=== PATIENT | female | born 1945 | race Caucasian/White ===

== ENCOUNTER 2018-05-06 21:32 | Emergency (ER) | payer OTHER ==
[~2018-05-06] VITALS: Ht 162.6 cm; Wt 68.0 kg
[~2018-05-06 21:32] MED LIST: AMLO5 PO; Antivert25 MG PO; BUDESONIDE EC3 MG PO; BUSP10 PO; CALCAVITD PO; CITA20 PO; CYCL10 PO; DOCU100 PO; ENTOCORT PO; ERGO50000 PO; Flonase 0.05% N16 GM; GABA100 PO; HYDACE5325 PO; Hair, Skin & N1 EACH PO; Indapamide2.5 MG PO; K-Dur20 MEQ PO; LAVAP17G PO; LEVFLO500 PO; LIDO5TP TOP; LISI20 PO; MESA250ER PO; METO50ER PO; METPRE4DP PO; Micro-K10 MEQ PO; OMEP20ER PO; OXYACE5T PO; OXYC10TA19; Omeprazole20 M1 PO; POTCHL10ER PO; Percocet 5-3251 EACH PO; Robaxin500 MG PO; SERT50 PO; SPIR25 PO; TRAM50 PO; TRAZ150T57 PO; TRAZ50 PO; VITAMIN D-32000 UNIT PO; Valium5 MG PO; ZOLP10 PO; [UNRECOGNIZED DRUG - SUPPLY]; [UNRECOGNIZED DRUG - SUPPLY] PR
[2018-05-06] MEDS ORDERED: Cyclobenzaprine5 MG PO (23:35)
[2018-05-06] MEDS ORDERED: Norco 5-325 Ta1 EACH PO (23:35)
== END 2018-05-06 23:58 | disposition home or self-care (01) ==
LOC: ER 21:32
DX: M62.830 Muscle spasm of back (principal); G89.29 Other chronic pain; Z88.5 Allergy status to narcotic agent; Z88.8 Allergy status to other drugs, medicaments and biological substances; Z79.899 Other long term (current) drug therapy; G43.909 Migraine, unspecified, not intractable, without status migrainosus
CPT/HCPCS: 72100; 96374; 99283-25; J3010

== ENCOUNTER 2018-05-08 18:35 | Emergency (ER) | payer OTHER ==
[~2018-05-08] VITALS: Ht 162.6 cm; Wt 68.0 kg
[~2018-05-08 18:35] MED LIST changes: +Cyclobenzaprine5 MG PO; +Norco 5-325 Ta1 EACH PO
[2018-05-08] MEDS ORDERED: Roxicodone5 MG PO (20:18)
== END 2018-05-08 20:36 | disposition home or self-care (01) ==
LOC: ER 18:35
DX: M54.5 Low back pain (principal); G89.29 Other chronic pain; Z88.5 Allergy status to narcotic agent; Z88.8 Allergy status to other drugs, medicaments and biological substances; Z79.899 Other long term (current) drug therapy; Z87.891 Personal history of nicotine dependence

== ENCOUNTER 2018-05-12 20:54 | Inpatient (IN) | payer OTHER ==
[~2018-05-12] VITALS: Ht 165.1 cm; Wt 66.6 kg
[~2018-05-12 20:54] MED LIST changes: +Roxicodone5 MG PO
[2018-05-12] MEDS ORDERED: TRAZ100 PO (21:22)
[2018-05-12] MEDS ORDERED: IBUP800 PO (21:23)
[2018-05-12] MEDS ORDERED: CALCIUM PO (21:24)
[2018-05-12] MEDS ORDERED: B-121000 MC2 PO (21:24)
[2018-05-12] MEDS ORDERED: D3 PO (21:25)
[2018-05-12 22:31] LABS: Hematocrit 43.3 % (33.0-51.0); Hemoglobin 13.9 g/dL (11.5-16.0); Mean Corpuscular HGB 29.6 pg (26.0-34.0); Mean Corpuscular HGB Conc 32.1 g/dL (31.5-36.5); Mean Corpuscular Volume 92 fL (80-100); Mean Platelet Volume 10.2 fL (9.1-12.4); Platelet Count 298 K/mm3 (150-400); RDW Coefficient Variation 13.5 % (11.7-14.2); RDW Standard Deviation 45.4 fL (35.1-46.3); Red Blood Cell Count 4.69 M/mm3 (3.80-5.20); White Blood Cell Count 24.21 K/mm3 (4.00-11.30)
[2018-05-12 22:48] LABS: BAND PERCENT MAN 10 % (0-8); BASOPHILS PERCENT MAN 0 % (0-2); EOSINOPHILS PERCENT MAN 0 % (0-6); LYMPHOCYTES ABSOLUTE MAN 0.96 K/mm3 (0.84-5.20); LYMPHOCYTES PERCENT MAN 4 % (21-46); MONOCYTES ABSOLUTE MAN 0.96 K/mm3 (0.16-1.47); MONOCYTES PERCENT MAN 4 % (4-13); NEUTROPHILS ABSOLUTE MAN 22.27 K/mm3 (1.96-9.15); SEG NEUTROPHILS PERCENT MAN 82 % (41-73); TOTAL CELLS COUNTED 100
[2018-05-12 23:15] LABS: Albumin/Globulin Ratio 0.9 (0.8-1.8); Bilirubin, Total 1.6 mg/dL (0.1-1.0); Bun/Creatinine Ratio 34.2 (12.0-20.0); Calcium, Blood 8.6 mg/dL (8.5-10.1); Creatinine, Blood 1.2 mg/dL (0.40-1.00); Globulin, Blood 3.4 g/dL (2.2-4.0); Potassium, Blood 3.2 mmol/L (3.5-5.5); Total Protein, Blood 6.4 g/dL (6.4-8.2); Troponin I 0.085 ng/mL (0.000-0.040)
[2018-05-12 23:48] LABS: Source, Urine Catheter
[2018-05-12 23:51] LABS: Blood, Urine 5+ (Neg); Glucose Qualitative, Urine Neg (Neg); Ketones, Urine 1+ (Neg); Leukocyte Esterase, Urine 2+ (Neg); Nitrite, Urine Pos (Neg); Protein, Urine 2+ (Neg); Urobilinogen, Urine 2+ (Normal)
[2018-05-12 23:53] LABS: Appearance, Urine Hazy (Clear); Bilirubin, Urine 2+ (Neg); Color, Urine Amber (P-Yellow)
[2018-05-13] LABS: Bacteria Mod /hpf; Red Blood Cells, Urine 25-50 /hpf (0-2); Squamous Epithelial Cells Not Seen /hpf (Few); White Blood Cells, Urine 0-2 /hpf (0-5)
[2018-05-13 08:01] LABS: Hematocrit 42.4 % (33.0-51.0); Hemoglobin 13.5 g/dL (11.5-16.0); Mean Corpuscular HGB 29.1 pg (26.0-34.0); Mean Corpuscular HGB Conc 31.8 g/dL (31.5-36.5); Mean Corpuscular Volume 91 fL (80-100); Platelet Count 320 K/mm3 (150-400); RDW Coefficient Variation 13.6 % (11.7-14.2); Red Blood Cell Count 4.64 M/mm3 (3.80-5.20); White Blood Cell Count 22.62 K/mm3 (4.00-11.30)
[2018-05-13 08:25] LABS: Free Thyroxine 1.85 ng/dL (0.70-1.60); Troponin I 0.072 ng/mL (0.000-0.040)
[2018-05-13 08:29] LABS: Alanine Aminotransfer (ALT/SGP 91 U/L (12-78); Albumin, Blood 2.8 g/dL (3.4-5.0); Albumin/Globulin Ratio 0.8 (0.8-1.8); Alk Phos 85 U/L (50-136); Anion Gap 10 mmol/L (6-16); Aspartate Aminotrans (AST/SGOT 207 U/L (12-37); Bilirubin, Total 1.2 mg/dL (0.1-1.0); Blood Urea Nitrogen 39 mg/dL (8-24); Bun/Creatinine Ratio 40.5 (12.0-20.0); CO2, Blood 25 mmol/L (21-32); Chloride, Blood 111 mmol/L (98-108); Creatinine, Blood 0.96 mg/dL (0.40-1.00); Globulin, Blood 3.3 g/dL (2.2-4.0); Glomerular Filtration Rate >60 (60-); Glucose, Blood 95 mg/dL (70-99); Potassium, Blood 3.8 mmol/L (3.5-5.5); Sodium, Blood 146 mmol/L (136-145); Total Protein, Blood 6.1 g/dL (6.4-8.2)
[2018-05-13 08:43] LABS: Thyroid Stimulating Hormone 0.204 uIU/mL (0.360-4.800)
[2018-05-13 08:45] LABS: Creatine Kinase MB 40.7 ng/mL (0.0-3.6); Creatine Kinase MB Index 1.1 (0.0-4.0)
[2018-05-13 19:09] LABS: Creatine Kinase MB 18.7 ng/mL (0.0-3.6); Creatine Kinase MB Index 1.1 (0.0-4.0)
[2018-05-14 05:16] LABS: BASOPHILS ABSOLUTE AUTO 0.05 K/mm3 (0.00-0.23); BASOPHILS PERCENT AUTO 0 % (0-2); EOSINOPHILS ABSOLUTE AUTO 0.01 K/mm3 (0.00-0.68); EOSINOPHILS PERCENT AUTO 0 % (0-6); Hemoglobin 13.5 g/dL (11.5-16.0); IMMATURE GRAN ABSOLUTE AUTO 0.05 K/mm3 (0.00-0.10); IMMATURE GRAN PERCENT AUTO 0 % (0-1); LYMPHOCYTES ABSOLUTE AUTO 0.91 K/mm3 (0.84-5.20); LYMPHOCYTES PERCENT AUTO 7 % (21-46); MONOCYTES PERCENT AUTO 5 % (4-13); Mean Corpuscular HGB 29.5 pg (26.0-34.0); Mean Corpuscular HGB Conc 31.4 g/dL (31.5-36.5); Mean Platelet Volume 9.6 fL (9.1-12.4); NEUTROPHILS ABSOLUTE AUTO 11.64 K/mm3 (1.96-9.15); NEUTROPHILS PERCENT AUTO 87 % (41-73); Platelet Count 278 K/mm3 (150-400); RDW Coefficient Variation 13.6 % (11.7-14.2); RDW Standard Deviation 46.7 fL (35.1-46.3); Red Blood Cell Count 4.58 M/mm3 (3.80-5.20); White Blood Cell Count 13.36 K/mm3 (4.00-11.30)
[2018-05-14 05:19] LABS: Alanine Aminotransfer (ALT/SGP 83 U/L (12-78); Albumin, Blood 2.5 g/dL (3.4-5.0); Albumin/Globulin Ratio 0.7 (0.8-1.8); Alk Phos 83 U/L (50-136); Anion Gap 9 mmol/L (6-16); Aspartate Aminotrans (AST/SGOT 99 U/L (12-37); Bilirubin, Total 0.9 mg/dL (0.1-1.0); Blood Urea Nitrogen 34 mg/dL (8-24); Bun/Creatinine Ratio 41.9 (12.0-20.0); CO2, Blood 23 mmol/L (21-32); Calcium, Blood 8.6 mg/dL (8.5-10.1); Chloride, Blood 111 mmol/L (98-108); Creatinine, Blood 0.81 mg/dL (0.40-1.00); Globulin, Blood 3.7 g/dL (2.2-4.0); Glomerular Filtration Rate >60 (60-); Glucose, Blood 96 mg/dL (70-99); Potassium, Blood 3.1 mmol/L (3.5-5.5); Sodium, Blood 143 mmol/L (136-145); Total Protein, Blood 6.2 g/dL (6.4-8.2)
[2018-05-14 05:22] LABS: Mean Corpuscular Volume 94 fL (80-100)
[2018-05-15 05:30] LABS: BASOPHILS ABSOLUTE AUTO 0.04 K/mm3 (0.00-0.23); BASOPHILS PERCENT AUTO 0 % (0-2); EOSINOPHILS PERCENT AUTO 0 % (0-6); Hematocrit 39.3 % (33.0-51.0); Hemoglobin 12.4 g/dL (11.5-16.0); IMMATURE GRAN ABSOLUTE AUTO 0.04 K/mm3 (0.00-0.10); IMMATURE GRAN PERCENT AUTO 0 % (0-1); LYMPHOCYTES ABSOLUTE AUTO 1.23 K/mm3 (0.84-5.20); LYMPHOCYTES PERCENT AUTO 11 % (21-46); MONOCYTES PERCENT AUTO 7 % (4-13); Mean Corpuscular HGB 29.2 pg (26.0-34.0); Mean Corpuscular HGB Conc 31.6 g/dL (31.5-36.5); Mean Corpuscular Volume 93 fL (80-100); Mean Platelet Volume 9.6 fL (9.1-12.4); NEUTROPHILS ABSOLUTE AUTO 9.23 K/mm3 (1.96-9.15); NEUTROPHILS PERCENT AUTO 81 % (41-73); Platelet Count 301 K/mm3 (150-400); RDW Coefficient Variation 13.4 % (11.7-14.2); RDW Standard Deviation 45.3 fL (35.1-46.3); Red Blood Cell Count 4.24 M/mm3 (3.80-5.20); White Blood Cell Count 11.34 K/mm3 (4.00-11.30)
[2018-05-15 05:49] LABS: Anion Gap 6 mmol/L (6-16); Blood Urea Nitrogen 26 mg/dL (8-24); Bun/Creatinine Ratio 32.6 (12.0-20.0); CO2, Blood 29 mmol/L (21-32); Calcium, Blood 8.5 mg/dL (8.5-10.1); Chloride, Blood 109 mmol/L (98-108); Glomerular Filtration Rate >60 (60-); Glucose, Blood 97 mg/dL (70-99); Potassium, Blood 4.5 mmol/L (3.5-5.5); Sodium, Blood 144 mmol/L (136-145)
[2018-05-15] MEDS ORDERED: CALCIUM 600 +1 EAC2 PO (11:35)
[2018-05-17] MEDS ORDERED: Cyclobenzaprine5 MG PO (16:58)
[2018-05-17] MEDS ORDERED: ALEN70 PO (17:02)
[2018-05-17] MEDS ORDERED: CEPH500 PO (17:03)
== END 2018-05-15 18:34 | disposition home or self-care (01) | DRG 871 ==
LOC: ER 20:54 → MEDS 20:55 → ENPENDDIS 05-15 12:36 → MEDS 05-15 18:34
PROVIDERS: Emergency Medicine; Hospitalist; Internal Medicine
DX: A41.9 Sepsis, unspecified organism (principal); G92 Toxic encephalopathy; N17.9 Acute kidney failure, unspecified; N39.0 Urinary tract infection, site not specified; K50.90 Crohn's disease, unspecified, without complications; E86.0 Dehydration; Z91.81 History of falling; Z87.891 Personal history of nicotine dependence; M18.0 Bilateral primary osteoarthritis of first carpometacarpal joints; G43.909 Migraine, unspecified, not intractable, without status migrainosus; I10 Essential (primary) hypertension; F03.90 Unspecified dementia, unspecified severity, without behavioral disturbance, psychotic disturbance, mood disturbance, and anxiety; Z51.5 Encounter for palliative care; D72.829 Elevated white blood cell count, unspecified; E05.90 Thyrotoxicosis, unspecified without thyrotoxic crisis or storm
CPT/HCPCS: 36415; 51701; 70450; 71045; 72125; 73502; 73562-LT; 76700; 80048; 80053; 81001; 82140; 82550; 82553; 82607; 82746; 83605; 84439; 84443; 84484; 85025; 85027; 87040; 87086; 93005; 93010; 96372; 96374; 96375; 97116; 97162; 97166; 97530; 99285-25; G0378; G0515; G8978; G8979; G8987; G8988; J0696; J1650; J3480; J7030

== ENCOUNTER 2018-05-24 09:39 | Emergency (ER) | payer OTHER ==
[~2018-05-24] VITALS: Ht 160 cm; Wt 68.5 kg
[~2018-05-24 09:39] MED LIST changes: +ALEN70 PO; +B-121000 MC2 PO; +CALCIUM 600 +1 EAC2 PO; +CALCIUM PO; +CEPH500 PO; +D3 PO; +IBUP800 PO; +TRAZ100 PO
[2018-05-24 10:53] LABS: BASOPHILS ABSOLUTE AUTO 0.05 K/mm3 (0.00-0.23); BASOPHILS PERCENT AUTO 0 % (0-2); EOSINOPHILS ABSOLUTE AUTO 0.02 K/mm3 (0.00-0.68); EOSINOPHILS PERCENT AUTO 0 % (0-6); Hematocrit 38.7 % (33.0-51.0); Hemoglobin 12.4 g/dL (11.5-16.0); IMMATURE GRAN ABSOLUTE AUTO 0.09 K/mm3 (0.00-0.10); IMMATURE GRAN PERCENT AUTO 1 % (0-1); LYMPHOCYTES PERCENT AUTO 6 % (21-46); MONOCYTES PERCENT AUTO 4 % (4-13); Mean Corpuscular HGB 29.2 pg (26.0-34.0); Mean Corpuscular Volume 91 fL (80-100); Mean Platelet Volume 8.9 fL (9.1-12.4); NEUTROPHILS ABSOLUTE AUTO 14.51 K/mm3 (1.96-9.15); NEUTROPHILS PERCENT AUTO 89 % (41-73); Platelet Count 444 K/mm3 (150-400); RDW Coefficient Variation 12.8 % (11.7-14.2); RDW Standard Deviation 42.4 fL (35.1-46.3); Red Blood Cell Count 4.24 M/mm3 (3.80-5.20); White Blood Cell Count 16.27 K/mm3 (4.00-11.30)
[2018-05-24 11:30] LABS: Alanine Aminotransfer (ALT/SGP 25 U/L (12-78); Albumin, Blood 2.5 g/dL (3.4-5.0); Albumin/Globulin Ratio 0.7 (0.8-1.8); Alk Phos 129 U/L (50-136); Anion Gap 7 mmol/L (6-16); Aspartate Aminotrans (AST/SGOT 14 U/L (12-37); Bilirubin, Total 0.6 mg/dL (0.1-1.0); Blood Urea Nitrogen 8 mg/dL (8-24); Bun/Creatinine Ratio 10.6 (12.0-20.0); CO2, Blood 29 mmol/L (21-32); Calcium, Blood 8.4 mg/dL (8.5-10.1); Chloride, Blood 105 mmol/L (98-108); Creatinine, Blood 0.76 mg/dL (0.40-1.00); Ethanol (Alcohol), Blood, Med <3 mg/dL; Globulin, Blood 3.5 g/dL (2.2-4.0); Glomerular Filtration Rate >60 (60-); Glucose, Blood 104 mg/dL (70-99); Magnesium, Blood 1.3 mg/dL (1.6-2.4); Potassium, Blood 3.5 mmol/L (3.5-5.5); Sodium, Blood 141 mmol/L (136-145); Troponin I <0.015 ng/mL (0.000-0.040)
[2018-05-24 11:33] LABS: Thyroid Stimulating Hormone 0.921 uIU/mL (0.360-4.800)
[2018-05-24 12:27] LABS: Source, Urine Catheter
[2018-05-24 12:31] LABS: Bilirubin, Urine Neg (Neg); Blood, Urine 4+ (Neg); Glucose Qualitative, Urine Neg (Neg); Ketones, Urine Neg (Neg); Leukocyte Esterase, Urine Neg (Neg); Nitrite, Urine Neg (Neg); Protein, Urine Neg (Neg); Specific Gravity, Urine 1.005 (1.003-1.022); Urobilinogen, Urine NORM (Normal)
[2018-05-24 12:55] LABS: Appearance, Urine Clear (Clear); Color, Urine Yellow (P-Yellow)
[2018-05-24 12:57] LABS: Bacteria Rare /hpf; Squamous Epithelial Cells Rare /hpf (Few); White Blood Cells, Urine 0-2 /hpf (0-5)
== END 2018-05-24 13:52 | disposition home or self-care (01) ==
LOC: ER 09:39
PROVIDERS: Emergency Medicine
DX: S32.059A Unspecified fracture of fifth lumbar vertebra, initial encounter for closed fracture (principal); F03.90 Unspecified dementia, unspecified severity, without behavioral disturbance, psychotic disturbance, mood disturbance, and anxiety; Z88.0 Allergy status to penicillin; Z88.8 Allergy status to other drugs, medicaments and biological substances; Z79.899 Other long term (current) drug therapy; Z87.891 Personal history of nicotine dependence; W19.XXXA Unspecified fall, initial encounter
CPT/HCPCS: 36415; 70450; 71046; 72100; 80053; 81001; 83735; 84443; 84484; 85025; 93005; 93010; 96361; 96365; 99285-25; G0480; J3475; J7120

== ENCOUNTER 2018-05-27 13:20 | Emergency (ER) | payer OTHER ==
[~2018-05-27] VITALS: Ht 162.6 cm; Wt 68.0 kg
[2018-05-27] MEDS ORDERED: Norco 5-325 Ta1 EACH PO (14:34)
== END 2018-05-27 15:08 | disposition home or self-care (01) ==
LOC: ER 13:20
DX: M80.08XA Age-related osteoporosis with current pathological fracture, vertebra(e), initial encounter for fracture (principal); F03.90 Unspecified dementia, unspecified severity, without behavioral disturbance, psychotic disturbance, mood disturbance, and anxiety; Z87.891 Personal history of nicotine dependence
CPT/HCPCS: 99284

== ENCOUNTER 2018-06-05 07:55 | Emergency (ER) | payer OTHER ==
[~2018-06-05] VITALS: Ht 162.6 cm; Wt 68.0 kg
[2018-06-05] MEDS ORDERED: ASPI81CH PO (08:30)
[2018-06-05] MEDS ORDERED: METPRE4DP PO (10:17)
== END 2018-06-05 11:34 | disposition home or self-care (01) ==
LOC: ER 07:55
DX: M54.17 Radiculopathy, lumbosacral region (principal); Z87.891 Personal history of nicotine dependence; Z88.8 Allergy status to other drugs, medicaments and biological substances; Z88.5 Allergy status to narcotic agent; Z79.899 Other long term (current) drug therapy; Z79.82 Long term (current) use of aspirin
CPT/HCPCS: 36415; 72100; 96374; 96375; 99283-25; J1100; J1170; J1885; J2405

== ENCOUNTER 2018-08-23 10:52 | Observation (INO) | payer OTHER ==
[~2018-08-23] VITALS: Ht 162.6 cm; Wt 59.0 kg
[~2018-08-23 10:52] MED LIST changes: +ACET325 PO; +ASPI81CH PO; +BISA10S PR; +CHOL10002 PO; +CORAL CALCIUM1 GM PO; +ERGO400 PO; +FERROUS SULFATE PO; +Ferrous Sulfat325 M2 PO; +Florastor250 MG PO; +HYDR1TAB94 PO; +LIDO700A20 TOP; +ONDA4ODT MM; +PAIN PATCH TOP; +POTCHL20ER PO; +SACC250C PO; +SERT100 PO; -TRAZ100 PO; +VANC250 PO
[2018-08-23 12:34] LABS: BASOPHILS ABSOLUTE AUTO 0.05 K/mm3 (0.00-0.23); BASOPHILS PERCENT AUTO 1 % (0-2); EOSINOPHILS ABSOLUTE AUTO 0.03 K/mm3 (0.00-0.68); EOSINOPHILS PERCENT AUTO 0 % (0-6); Hematocrit 45.3 % (33.0-51.0); Hemoglobin 14.3 g/dL (11.5-16.0); IMMATURE GRAN ABSOLUTE AUTO 0.03 K/mm3 (0.00-0.10); IMMATURE GRAN PERCENT AUTO 0 % (0-1); LYMPHOCYTES ABSOLUTE AUTO 1.28 K/mm3 (0.84-5.20); LYMPHOCYTES PERCENT AUTO 12 % (21-46); MONOCYTES ABSOLUTE AUTO 0.65 K/mm3 (0.16-1.47); MONOCYTES PERCENT AUTO 6 % (4-13); Mean Corpuscular HGB 29.2 pg (26.0-34.0); Mean Corpuscular HGB Conc 31.6 g/dL (31.5-36.5); Mean Corpuscular Volume 93 fL (80-100); Mean Platelet Volume 9.4 fL (9.1-12.4); NEUTROPHILS ABSOLUTE AUTO 8.56 K/mm3 (1.96-9.15); NEUTROPHILS PERCENT AUTO 81 % (41-73); Platelet Count 363 K/mm3 (150-400); RDW Coefficient Variation 13.6 % (11.7-14.2); RDW Standard Deviation 46.9 fL (35.1-46.3); Red Blood Cell Count 4.89 M/mm3 (3.80-5.20)
[2018-08-23 13:03] LABS: Anion Gap 7 mmol/L (6-16); Blood Urea Nitrogen 11 mg/dL (8-24); CO2, Blood 26 mmol/L (21-32); Calcium, Blood 9.2 mg/dL (8.5-10.1); Chloride, Blood 109 mmol/L (98-108); Creatinine, Blood 0.65 mg/dL (0.40-1.00); Glomerular Filtration Rate >60 (60-); Glucose, Blood 102 mg/dL (70-99); Potassium, Blood 3.6 mmol/L (3.5-5.5); Sodium, Blood 142 mmol/L (136-145)
[2018-08-23 19:45] LABS: Anion Gap 7 mmol/L (6-16); Blood Urea Nitrogen 9 mg/dL (8-24); CO2, Blood 27 mmol/L (21-32); Calcium, Blood 8.7 mg/dL (8.5-10.1); Chloride, Blood 107 mmol/L (98-108); Creatinine, Blood 0.56 mg/dL (0.40-1.00); Glomerular Filtration Rate >60 (60-); Glucose, Blood 110 mg/dL (70-99); Potassium, Blood 3.2 mmol/L (3.5-5.5); Sodium, Blood 141 mmol/L (136-145); Troponin I <0.015 ng/mL (0.000-0.040)
[2018-08-23 19:48] LABS: Thyroid Stimulating Hormone 0.959 uIU/mL (0.360-4.800)
[2018-08-23 19:56] LABS: Magnesium, Blood 1.1 mg/dL (1.6-2.4)
[2018-08-24 04:20] LABS: BASOPHILS ABSOLUTE AUTO 0.06 K/mm3 (0.00-0.23); BASOPHILS PERCENT AUTO 1 % (0-2); EOSINOPHILS PERCENT AUTO 0 % (0-6); Hematocrit 33.7 % (33.0-51.0); Hemoglobin 10.4 g/dL (11.5-16.0); IMMATURE GRAN ABSOLUTE AUTO 0.03 K/mm3 (0.00-0.10); IMMATURE GRAN PERCENT AUTO 0 % (0-1); LYMPHOCYTES PERCENT AUTO 10 % (21-46); MONOCYTES PERCENT AUTO 8 % (4-13); Mean Corpuscular HGB 29.1 pg (26.0-34.0); Mean Corpuscular HGB Conc 30.9 g/dL (31.5-36.5); Mean Corpuscular Volume 94 fL (80-100); Mean Platelet Volume 9.6 fL (9.1-12.4); NEUTROPHILS ABSOLUTE AUTO 9.76 K/mm3 (1.96-9.15); NEUTROPHILS PERCENT AUTO 82 % (41-73); Platelet Count 323 K/mm3 (150-400); RDW Coefficient Variation 13.7 % (11.7-14.2); RDW Standard Deviation 47.9 fL (35.1-46.3); Red Blood Cell Count 3.57 M/mm3 (3.80-5.20); White Blood Cell Count 11.95 K/mm3 (4.00-11.30)
[2018-08-25 04:50] LABS: Anion Gap 7 mmol/L (6-16); Blood Urea Nitrogen 8 mg/dL (8-24); Bun/Creatinine Ratio 13.6 (12.0-20.0); CO2, Blood 26 mmol/L (21-32); Calcium, Blood 8.3 mg/dL (8.5-10.1); Chloride, Blood 108 mmol/L (98-108); Creatinine, Blood 0.59 mg/dL (0.40-1.00); Glomerular Filtration Rate >60 (60-); Glucose, Blood 94 mg/dL (70-99); Magnesium, Blood 1.7 mg/dL (1.6-2.4); Potassium, Blood 3.3 mmol/L (3.5-5.5); Sodium, Blood 141 mmol/L (136-145)
== END 2018-08-25 15:06 ==
LOC: PRE IP 10:52 → SURS 10:52 → PRE IP 13:00 → SURS 16:17
PROVIDERS: Hospitalist; Nurse Practitioner Acute Care; Orthopaedic Surgery
PROC: 0QH604Z Insertion of Internal Fixation Device into Right Upper Femur, Open Approach (ICD-10-PCS; principal; 2018-08-23 13:00)
DX: T84.194A Other mechanical complication of internal fixation device of right femur, initial encounter (principal); S72.141A Displaced intertrochanteric fracture of right femur, initial encounter for closed fracture; I47.1 Supraventricular tachycardia; A04.72 Enterocolitis due to Clostridium difficile, not specified as recurrent; R50.9 Fever, unspecified; I10 Essential (primary) hypertension; E83.42 Hypomagnesemia; E03.9 Hypothyroidism, unspecified; Z88.5 Allergy status to narcotic agent; Z88.8 Allergy status to other drugs, medicaments and biological substances; Z87.891 Personal history of nicotine dependence; Z79.82 Long term (current) use of aspirin; Z79.899 Other long term (current) drug therapy
CPT/HCPCS: 36415; 71045; 80048; 83735; 84443; 84484; 85025; 93005; 93010; 97162; 97530; C1713; G8978; G8979; J0690; J2250; J2405; J3010; J3475; J3480; J7120

== ENCOUNTER 2018-12-22 14:55 | Emergency (ER) | payer OTHER ==
[~2018-12-22] VITALS: Ht 162.6 cm; Wt 52.2 kg
[2018-12-22] MEDS ORDERED: LIDO700A20 TOP (15:51)
[2018-12-22] MEDS ORDERED: Percocet 5-3251 EACH PO (15:51)
[2018-12-22] MEDS ORDERED: Robaxin500 MG PO (15:51)
== END 2018-12-22 16:03 | disposition home or self-care (01) ==
LOC: ER 14:55
DX: G89.29 Other chronic pain (principal); M54.5 Low back pain; Z88.5 Allergy status to narcotic agent; Z88.8 Allergy status to other drugs, medicaments and biological substances; Z79.82 Long term (current) use of aspirin; Z79.899 Other long term (current) drug therapy; G43.909 Migraine, unspecified, not intractable, without status migrainosus; E03.9 Hypothyroidism, unspecified; Z87.891 Personal history of nicotine dependence
CPT/HCPCS: 99283; J1885

== ENCOUNTER 2018-12-23 13:57 | Emergency (ER) | payer OTHER ==
[~2018-12-23] VITALS: Ht 162.6 cm; Wt 52.2 kg
== END 2018-12-23 17:11 | disposition home or self-care (01) ==
LOC: ER 13:57
DX: M54.6 Pain in thoracic spine (principal); M54.5 Low back pain; G43.909 Migraine, unspecified, not intractable, without status migrainosus; I10 Essential (primary) hypertension; E03.9 Hypothyroidism, unspecified; Z87.891 Personal history of nicotine dependence
CPT/HCPCS: 72070; 72100; 93005; 93010; 96374; 99284-25; J1170

== ENCOUNTER 2019-03-02 16:06 | Emergency (ER) | payer OTHER ==
[~2019-03-02] VITALS: Ht 162.6 cm; Wt 48.5 kg
== END 2019-03-02 18:51 | disposition home or self-care (01) ==
LOC: ER 16:06
DX: G43.909 Migraine, unspecified, not intractable, without status migrainosus (principal); I10 Essential (primary) hypertension; F03.90 Unspecified dementia, unspecified severity, without behavioral disturbance, psychotic disturbance, mood disturbance, and anxiety; E03.9 Hypothyroidism, unspecified; Z87.891 Personal history of nicotine dependence; Z79.899 Other long term (current) drug therapy; Z79.82 Long term (current) use of aspirin
CPT/HCPCS: 96374; 96375; 99283-25; J1170; J1885; J2405

== ENCOUNTER 2019-04-02 23:18 | Inpatient (IN) | payer OTHER ==
[~2019-04-02] VITALS: Ht 162.6 cm; Wt 44.9 kg
[2019-04-03 00:03] LABS: U Amphetamine Screen Not Detected; U Barbituate Screen Not Detected; U Benzodiazapine Screen Not Detected; U Buprenorphine Screen Not Detected; U Cannabinoids Screen Not Detected; U Cocaine Screen Not Detected; U Methadone Screen Not Detected; U Methamphetamine Screen Not Detected; U Opiates Screen Not Detected; U Oxycodone Screen Not Detected; U Phencyclidine Screen Not Detected; U Propoxyphene Screen Not Detected
[2019-04-03 00:07] LABS: BASOPHILS ABSOLUTE AUTO 0.05 K/mm3 (0.00-0.23); BASOPHILS PERCENT AUTO 1 % (0-2); EOSINOPHILS ABSOLUTE AUTO 0.02 K/mm3 (0.00-0.68); EOSINOPHILS PERCENT AUTO 0 % (0-6); Hematocrit 45.2 % (33.0-51.0); Hemoglobin 14.8 g/dL (11.5-16.0); IMMATURE GRAN ABSOLUTE AUTO 0.02 K/mm3 (0.00-0.10); IMMATURE GRAN PERCENT AUTO 0 % (0-1); LYMPHOCYTES ABSOLUTE AUTO 1.26 K/mm3 (0.84-5.20); LYMPHOCYTES PERCENT AUTO 13 % (21-46); MONOCYTES ABSOLUTE AUTO 0.56 K/mm3 (0.16-1.47); MONOCYTES PERCENT AUTO 6 % (4-13); Mean Corpuscular HGB 30.5 pg (26.0-34.0); Mean Corpuscular HGB Conc 32.7 g/dL (31.5-36.5); Mean Corpuscular Volume 93 fL (80-100); Mean Platelet Volume 10.7 fL (9.1-12.4); NEUTROPHILS ABSOLUTE AUTO 8.19 K/mm3 (1.96-9.15); NEUTROPHILS PERCENT AUTO 81 % (41-73); Platelet Count 251 K/mm3 (150-400); RDW Standard Deviation 44.4 fL (35.1-46.3); Red Blood Cell Count 4.85 M/mm3 (3.80-5.20)
[2019-04-03 00:25] LABS: Alanine Aminotransfer (ALT/SGP 12 U/L (12-78); Albumin, Blood 3.7 g/dL (3.4-5.0); Albumin/Globulin Ratio 1.2 (0.8-1.8); Alk Phos 107 U/L (50-136); Anion Gap 8 mmol/L (6-16); Aspartate Aminotrans (AST/SGOT 19 U/L (12-37); Bilirubin, Total 1.5 mg/dL (0.1-1.0); Blood Urea Nitrogen 5 mg/dL (8-24); Bun/Creatinine Ratio 6.2 (12.0-20.0); CO2, Blood 28 mmol/L (21-32); Calcium, Blood 9.3 mg/dL (8.5-10.1); Chloride, Blood 106 mmol/L (98-108); Creatinine, Blood 0.81 mg/dL (0.40-1.00); Ethanol (Alcohol), Blood, Med <3 mg/dL; Globulin, Blood 3.2 g/dL (2.2-4.0); Glomerular Filtration Rate >60 (60-); Glucose, Blood 111 mg/dL (70-99); Potassium, Blood 3.4 mmol/L (3.5-5.5); Sodium, Blood 142 mmol/L (136-145); Total Protein, Blood 6.9 g/dL (6.4-8.2)
[2019-04-03 01:09] LABS: International Normalized Ratio 1.07; Prothrombin Time Results 11.3 Sec (9.7-11.5)
[2019-04-03 01:39] LABS: Source, Urine Clean Catch
[2019-04-03 01:42] LABS: Bilirubin, Urine Neg (Neg); Blood, Urine 3+ (Neg); Glucose Qualitative, Urine Neg (Neg); Ketones, Urine Neg (Neg); Leukocyte Esterase, Urine Neg (Neg); Nitrite, Urine Neg (Neg); Protein, Urine Neg (Neg); Urobilinogen, Urine NORM (Normal)
[2019-04-03 01:47] LABS: Appearance, Urine Clear (Clear); Bacteria Mod /hpf; Color, Urine Yellow (P-Yellow); Red Blood Cells, Urine 0-2 /hpf (0-2); Squamous Epithelial Cells Not Seen /hpf (Few); White Blood Cells, Urine 0-2 /hpf (0-5)
[2019-04-03 02:11] LABS: Source, Urine Catheter
[2019-04-03 02:13] LABS: Bilirubin, Urine Neg (Neg); Blood, Urine 2+ (Neg); Glucose Qualitative, Urine Neg (Neg); Ketones, Urine Neg (Neg); Leukocyte Esterase, Urine Neg (Neg); Nitrite, Urine Neg (Neg); Protein, Urine Neg (Neg); Specific Gravity, Urine 1.005 (1.003-1.022); Urobilinogen, Urine NORM (Normal)
[2019-04-03 02:16] LABS: Appearance, Urine Clear (Clear); Color, Urine Yellow (P-Yellow)
[2019-04-03 02:21] LABS: Bacteria Few /hpf; Red Blood Cells, Urine 0-2 /hpf (0-2); Squamous Epithelial Cells Not Seen /hpf (Few)
[2019-04-03 03:30] LABS: PCO2 Arterial 29.9 mmHg (35-45); PO2 Arterial 434 mmHg (80-100); pH Blood Arterial 7.39 (7.35-7.45)
[2019-04-03 06:42] LABS: Troponin I 0.018 ng/mL (0.000-0.040)
[2019-04-03 06:46] LABS: Magnesium, Blood 0.9 mg/dL (1.6-2.4)
--- NOTE | 2019-04-03 07:27 | NUR ---
ASSUMED CARE/SHIFT SUMMARY RECEIVED REPORT FROM ELVIRA GARCIA IN ER. PT ARRIVED TO ICU VIA STRETCH AT 0533. PT ON VENTILATOR INTUBATED WITH ETT 7.5, 25 @ THE LIP. AC14/350/5/25%. PT NOT RESPONDING TO PAIN OR VERBAL STIMULI. PT IS ON PROPOFOL AT 25MCG/KG/MIN, NITRO 20MCG/MIN, AND AMIODARONE AT 1MG/MIN. PT WAS HYPERTENSIVE COMING IN (SEE VS), AND IS IN A FLUTTER WITH RVR. PT IS HAVING VERY SLIGHT JERKING MOVEMENTS WITH HER HEAD. PUPILS ARE 4/4, EQUAL AND REACTIVE TO LIGHT. RESTRAINTS ARE ON BILATERAL WRISTS. BED IS LOW AND LOCKED.
--- NOTE | 2019-04-03 08:37 | NUR ---
Echocardiogram completed.
--- NOTE | 2019-04-03 09:00 | NUR ---
CARE ASSUMED CARE AND REPORT ASSUMED FROM ESTEFANY GARCIA. PT INTUBATED ON VENT AC 14, TV 350, PEEP 5, FIO2 25%. LUNG SOUNDS CLEAR. PROPOFOL GTT INFUSING AT 25 MCG AT THIS TIME; WILL TITRATE IF NEEDED. NITRO GTT INFUSING AT 30 MCG/MIN AT START OF SHIFT; TITRATED TO OFF AND LABETOLOL GTT STARTED PER MD PAEZ ORDERS. AMIODARONE GTT INFUSING AT 1 MG PER ORDER; WILL CHANGE DOSE AT 1100. RHYTHM SINUSTACH 130-140S THEN SUDDENLY DROPS TO NSR 80S. BUE RESTRAINED TO PROTECT ETT AND LINES. MAGNESIUM AND POTASSIUM REPLACEMENT STARTED IMMEDIATELY AT START OF SHIFT. OGT REMAINS ATTACHED TO LIWS EXCEPT WHEN CLAMPED POST INSPECTOR FINAL ASSEMBLY ELECTRICAL. WILL CONTINUE TO MONITOR.
--- NOTE | 2019-04-03 11:09 | NUR ---
REASSESSMENT AFTER APPROX 30 MINUTES OF LABETOLOL GTT INFUSING AT 2MG/MIN, PT BECAME SUDDENLY HYPOTENSIVE, WITH DECREASED HR AND DECREASED SPO2. HR 50S/40S, NSR WITH HR 60S, AND SPO2 80%. SPO2 PROBE REMAINED LOW FOR FEW MINUTES, RT CALLED TO BEDSIDE AND FIO2 INCREASED TO 50% FOR SHORT TIME. LABETOLOL GTT AND PROPOFOL GTT IMMEDIATELY STOPPED AND NS BOLUS 500 ML ADMINISTERED. SPO2 INCREASED TO 99% SO FIO2 THEN DECREASED TO 25%, BP NOW 114/78, NSR WITH HR 60S. PT NOW CONTINUALLY MOVING IN BED, PULLING AGAINST UPPER EXTREMITY RESTRAINTS, MOVING LEGS UP/DOWN, AND THRASHING HEAD SIDE/SIDE. SHE DOES RESPOND TO HER OWN NAME. PROPOFOL GTT RESTARTED AT 20 MCG TO HELP PT RELAX. WILL RELAY UPDATES AND EPISODE TO MD PAEZ.
[2019-04-03 12:50] LABS: International Normalized Ratio 1.11; Prothrombin Time Results 11.7 Sec (9.7-11.5)
[2019-04-03 12:59] LABS: Anion Gap 10 mmol/L (6-16); Blood Urea Nitrogen 6 mg/dL (8-24); Bun/Creatinine Ratio 7.4 (12.0-20.0); CO2, Blood 26 mmol/L (21-32); Calcium, Blood 8.3 mg/dL (8.5-10.1); Chloride, Blood 102 mmol/L (98-108); Creatinine, Blood 0.81 mg/dL (0.40-1.00); Glomerular Filtration Rate >60 (60-); Glucose, Blood 148 mg/dL (70-99); Magnesium, Blood 1.8 mg/dL (1.6-2.4); Phosphorus, Blood 3.1 mg/dL (2.5-4.9); Potassium, Blood 3.2 mmol/L (3.5-5.5); Sodium, Blood 138 mmol/L (136-145); Troponin I 0.094 ng/mL (0.000-0.040)
[2019-04-03] MEDS ORDERED: NAPR220 PO (15:10)
[2019-04-03] MEDS ORDERED: ACET500 PO (15:12)
[2019-04-03] MEDS ORDERED: ASPI325 PO (15:13)
[2019-04-03] MEDS ORDERED: MECL12.5 PO (15:15)
[2019-04-03 15:17] LABS: CPK Creatine Kinase 45 U/L (26-193)
--- NOTE | 2019-04-03 18:35 | NUR ---
SHIFT SUMMARY PT RECIEVED EEG TODAY. WHEN OFF SEDATION, PT BECOMES EASILY AROUSED AND BEGINS PULLING ON RESTRAINTS AND THRASHING HEAD BACK AND FORTH. FENTANYL GIVEN FOR SEDATION ADJUNCT. MULTIPLE PERIPHERAL IVS INSERTED AND INFILITRATED THROUGHOUT SHIFT; FINALLY ABLE TO SUCCESSFULLY INSERT POWERGLIDE INTO L UPPER ARM. AMIODARONE GTT DISCONTINUED PER MD GEIGER. HEPARIN GTT STARTED THIS AFTERNOON PER ORDERS. PT HAD FEW EPISODES WITH LOW BP FOLLOWING LABETOLOL DRIP AND FENTANYL ADMINISTRATION. REMAINED IN BUE RESTRAINTS ENTIRE SHIFT. PROPOFOL GTT RATE ADJUSTED PER NEEDS. SPOKE WITH SON SHASHI BOTH ON PHONE AND AT BEDSIDE WHEN HE CAME TO VISIT; MEDICATION LIST RECONCILED WITH MEDS THAT PT BROUGHT IN. SON UPDATED ON CURRENT STATUS. SON REPORTED THAT PT WAS SITTING AT THE DINNER TABLE AND FOLLOWING DINNER, SHE WAS UNABLE TO TALK AND WAS ACTING NOT NORMAL FOR APPROX FEW MINTUES. FOLLWOING THAT, SHE THEN TOLD HER SON SHE WAS GOING TO THE KITCHEN TO BAKE, WHICH HE REPORTS IS NORMAL BEHAVIOR FOR HER. SHE SUDDENLY RAN OUT OF THE KITCHEN TO THE COUCH, AND STARTING WHALING IN PAIN, THRASHING ABOUT, AND WAS UNABLE TO TALK CLEARLY. THAT IS WHEN HE CALLED EMS. DETAILS RELAYED TO MD PAEZ. POTASSIUM, MAGNSESIUM, AND CALCIUM REPLACED THIS AFTERNOON. LAB RECHECK SCHEDULED FOR 1999. WILL GIVE BEDSIDE, HANDOFF REPORT TO BELINDA GARCIA.
--- NOTE | 2019-04-03 20:04 | NUR ---
ASSUMED CARE RECIEVED REPORT FROM JAI GARCIA. PT IS INTUBATED WITH 7.5 ETT, 25@LIP. VENT IS SET TO AC15/350/5/25%. GTTPS: PROPOFOL AT 25MCG/KG/MIN, HEPARIN 13UNITS/KG/HR, AND KCL. OG TUBE IS HOOKED TO LIS, AND THACKER IS PATENT AND HANGING TO GRAVITY. SEIZURE PADS AND BILATERAL SWB RESTRAINTS ARE INPLACE. BED IS LOW AND LOCKED.
--- NOTE | 2019-04-04 00:33 | NUR ---
UPDATE PT HAS TREMULOUS ACTIVITY OCCASIONALLY IN ARMS. I DONT SEE ANY RYTHMIC MOTION OF HER HEAD ANYMORE. PT XOCHITL OF 3, CNVI OF 0 WHEN LEFT ALONE, BECOMES AGITATED WITH STIMULATION, TURNS, AND ORAL CARE. TEMPORAL TEMP AND THACKER TEMP DO NOT MATCH. HER EXTREMETIES ARE SLIGHTLY COOL TO TOUCH. POWERGLIDE HAS RESISTANCE TO DRAWING BLOOD, BUT DOES SO SLOWLY.
[2019-04-04 01:04] LABS: Hematocrit 38.3 % (33.0-51.0); Hemoglobin 12.5 g/dL (11.5-16.0); Mean Corpuscular HGB Conc 32.6 g/dL (31.5-36.5); Mean Corpuscular Volume 92 fL (80-100); Mean Platelet Volume 10.7 fL (9.1-12.4); Platelet Count 221 K/mm3 (150-400); RDW Coefficient Variation 13.5 % (11.7-14.2); RDW Standard Deviation 45.1 fL (35.1-46.3); Red Blood Cell Count 4.16 M/mm3 (3.80-5.20); White Blood Cell Count 12.33 K/mm3 (4.00-11.30)
[2019-04-04 01:17] LABS: Magnesium, Blood 2.2 mg/dL (1.6-2.4); Potassium, Blood 4.1 mmol/L (3.5-5.5)
[2019-04-04 01:22] LABS: Alanine Aminotransfer (ALT/SGP 11 U/L (12-78); Albumin, Blood 2.7 g/dL (3.4-5.0); Alk Phos 85 U/L (50-136); Anion Gap 8 mmol/L (6-16); Aspartate Aminotrans (AST/SGOT 11 U/L (12-37); Bilirubin, Total 1.6 mg/dL (0.1-1.0); Blood Urea Nitrogen 8 mg/dL (8-24); Bun/Creatinine Ratio 9.3 (12.0-20.0); CO2, Blood 26 mmol/L (21-32); Calcium, Blood 8.5 mg/dL (8.5-10.1); Chloride, Blood 105 mmol/L (98-108); Creatinine, Blood 0.86 mg/dL (0.40-1.00); Globulin, Blood 2.6 g/dL (2.2-4.0); Glomerular Filtration Rate >60 (60-); Glucose, Blood 103 mg/dL (70-99); Potassium, Blood 4.1 mmol/L (3.5-5.5); Sodium, Blood 139 mmol/L (136-145); Total Protein, Blood 5.3 g/dL (6.4-8.2)
--- NOTE | 2019-04-04 05:20 | NUR ---
SEDATION VACATION/SBT IN ROOM WITH JAMAL RT. PERFORMED SBT AND SEDATION VACATION; PROPOFOL AT 5MCG/KG/MIN. PT FOLLOWING MOST DIRECTIONS: WIGGLING TOES, SQUEEZING AND LETTING GO OF MY FINGERS, BUT NOT OPENING EYES FULLY. PT GETS AGITATED, BUT IS REDIRECTABLE AND CALMS DOWN WHEN PROMPTED (FOR THE MOST PART). BLOOD PRESSURE INCREASED TO SYSTOLIC OF 160-185, SEE RT NOTE FOR RESPIRATORY STATUS. PROPOFOL BACK ON AT 35MCG/KG/MIN. VENT SETTINGS SWITCHED BACK TO AC16/350/5/25%. BED LOW AND LOCKED.
--- NOTE | 2019-04-04 06:28 | NUR ---
SHIFT SUMMARY PT REMAINS INTUBATED WITH 7.5 ETT, 25 @ LIP; ON VENT AC16/350/5/25%. CURRENT GTTPS: HEPARIN 13UNITS/KG/HR (LAST PTT: 61, WITH NO CHANGES TO GTTP), PROPOFOL AT 30MCG/KG/MIN, AND NS AT 75ML/HR. PT CAN BECOME QUITE AGITATED ON LIGHT SEDATION WITH STIMULATION. PT PERFORMED QUITE WELL ON SBT, BUT AGITATION AND BLOOD PRESSURE WERE HER MAIN ISSUES. MG AND K LEVELS CAME BACK IN TARGET RANGE. NO REPLACEMENT INDICATED (ELECTROLYTE REPLACEMENT PROTOCOL IN PLACE). LABS DRAWN FROM [facility] WERE DIFFICULT AND ENDED UP BEING LYSED. NO ACUTE CHANGES. PT HAS BEEN IN SINUS BRADYCARDIA/NSR (OR POSSIBLY A JUNCTIONAL RHYTHM). BP DEPENDENT ON SAS/PROPOFOL. GOAL IS SBP 140-160 (HAS BEEN <140 FOR MAJORITY OF NIGHT). BED IS LOW AND LOCKED. SWB IN PLACE. THACKER HANGING TO GRAVITY/IS PATENT.
--- NOTE | 2019-04-04 13:55 | NUR ---
EXTUBATE: DR. CARLIN AT THE BEDSIDE AND ORDERED ANOTHER WEAN OF PT. SEDATION TURNED OFF AT 1308. PT WAS VERY ANXIOUS ON WEAN, GIVEN SOME FENTANYL TO HELP, BUT OVERALL DID WELL SO DR. CARLIN GAVE ORDERS TO EXTUBATE. PT EXTUBATED AT 1345 AND PLACED ON 3L/NC. PT ALERT, ORIENTED TO PERSON AND PLACE. DOESN'T KNOW YEAR AND THOUGHT [facility] WAS PRESIDENT. PT REORIENTED TO SITUATION, GIVEN EINSTRUCTIONS ON PLAN OF CARE. CONTINUING TO MONITOR.
--- NOTE | 2019-04-04 16:12 | NUR ---
SHIFT SUMMARY: PT WAS EXTUBATED TODAY AND HAS DONE WELL SINCE. CURRENTLY ON RA. SHE IS CLEARING HER SECRETIONS, COUGHING THEM UP INTO TISSUES. LUNGS ARE CLEAR, DIM IN THE BASES STILL. SHE REMAINS SR/SB WITH RATE IN THE 50S AND 60S. SHE WENT INTO A-FLUTTER THIS MORNING FOR ABOUT 30 SECONDS, BUT SWITCHED BACK WITHOUT ANY INTERVENTION AND HAS MAINTAINED SINUS SINCE. ATTEMPTED TO GIVE PT WATER THIS EVENING BUT PT HAS A DELAYED COUGH AND THEN CHOKING REACTION. SHE STATES THAT IT FEELS LIKE IT IS GOING DOWN THE WRONG PIPE. SPEECH EVAL ORDERED AND WILL KEEP NPO OVERNIGHT. NO FAMILY HAS BEEN IN TODAY OR CALLED.
[2019-04-04 16:39] LABS: Albumin, Blood 2.7 g/dL (3.4-5.0); Anion Gap 5 mmol/L (6-16); Blood Urea Nitrogen 7 mg/dL (8-24); Bun/Creatinine Ratio 8.3 (12.0-20.0); CO2, Blood 26 mmol/L (21-32); Chloride, Blood 111 mmol/L (98-108); Creatinine, Blood 0.84 mg/dL (0.40-1.00); Glomerular Filtration Rate >60 (60-); Glucose, Blood 93 mg/dL (70-99); Potassium, Blood 3.7 mmol/L (3.5-5.5); Sodium, Blood 142 mmol/L (136-145)
--- NOTE | 2019-04-04 19:43 | NUR ---
ASSUMED CARE RECEOVED RECIEVED REPORT FROM EZ GARCIA. PT IS ALERT AND ORIENTED TO SELF AND PLACE. BELIEVES THE PRESIDENT IS STILL [place]. CURRENT GTTPS: NS @ 75ML/HR AND HEPARIN @ 13UNITS/KG/HR. PT DENIES PAIN OR DISCOMFORT AT THIS TIME. THACKER BAG IS PATENT AND HANGING TO GRAVITY. PT IS IN NSR, RATE IN THE 70'S. BED IS LOW AND LOCKED, CALL LIGHT WITHIN REACH, AND BED ALARM IS ON.
--- NOTE | 2019-04-05 | NUR ---
ANTIBIOTIC ORDER PT HAD SCHEDULED AMOXICILLIN ORDERED PER TUBE FOR 0000. FIRST DOES WAS NOT GIVEN DUE TO "NPO" STATUS, NOT HAVING A ENTERAL TUBE, AND HER RISK FOR ASPIRATION WAS HIGH. I DISCUSSED WITH PHARMACY AND DR ROACH ABOUT GIVING HER AMPICILLIN IV PB OVERNIGHT (INSTEAD OF WAKING HER UP AND HAVING HER ATTEMPT TO SWALLOW THE ABX) COVERAGE TILL WE CAN REEVALUATE AFTER HER SWALLOW EVAL THE NEXT DAY. DISCUSSED WITH CHARGE NURSE. WILL PASS ON TO DAY RN.
[2019-04-05 05:18] LABS: BASOPHILS ABSOLUTE AUTO 0.07 K/mm3 (0.00-0.23); BASOPHILS PERCENT AUTO 1 % (0-2); EOSINOPHILS ABSOLUTE AUTO 0.01 K/mm3 (0.00-0.68); EOSINOPHILS PERCENT AUTO 0 % (0-6); Hematocrit 35.9 % (33.0-51.0); Hemoglobin 11.7 g/dL (11.5-16.0); IMMATURE GRAN ABSOLUTE AUTO 0.05 K/mm3 (0.00-0.10); IMMATURE GRAN PERCENT AUTO 0 % (0-1); LYMPHOCYTES ABSOLUTE AUTO 1.83 K/mm3 (0.84-5.20); LYMPHOCYTES PERCENT AUTO 16 % (21-46); MONOCYTES ABSOLUTE AUTO 0.67 K/mm3 (0.16-1.47); MONOCYTES PERCENT AUTO 6 % (4-13); Mean Corpuscular HGB 30.6 pg (26.0-34.0); Mean Corpuscular HGB Conc 32.6 g/dL (31.5-36.5); Mean Corpuscular Volume 94 fL (80-100); NEUTROPHILS ABSOLUTE AUTO 9.13 K/mm3 (1.96-9.15); NEUTROPHILS PERCENT AUTO 78 % (41-73); Platelet Count 231 K/mm3 (150-400); RDW Coefficient Variation 13.6 % (11.7-14.2); RDW Standard Deviation 46.4 fL (35.1-46.3); Red Blood Cell Count 3.82 M/mm3 (3.80-5.20); White Blood Cell Count 11.76 K/mm3 (4.00-11.30)
--- NOTE | 2019-04-05 07:22 | NUR ---
SHIFT SUMMARY PT HAS DEMENTIA AND IS ALERT & ORIENTED TO SELF, PLACE, AND SON. BELIEVES THE PRESIDENT IS [place]. UNSURE IF SHE IS COMPREHENDING WHAT I SAY TO HER, BUT SHE IS RECEPTIVE TO MY INTERVENTIONS. HER SON SHASHI CALLED LAST NIGHT AND WAS UPDATED ON SITUATION, AND PLANS TO CALL TODAY AFTER RAEGAN AND THE HOSPITALIST DO THEIR ROUNDS. STATES HE CAN PICK HER UP AND TAKE CARE OF HER WHEN SHES READY TO BE DISCHARGED. PT HAS RHYTHMIC MOTIONS IN HER ARMS TRANSIENTLY. PT HAS DENIED PAIN, NAUSEA, AND ANY DISCOMFORT ALL NIGHT. I DID TAKE OUT HER PERIPHERAL IV IN HER LEFT HAND DUE TO A STRONG BURNING SENSATION. SHE HAS A POWERGLIDE IN HER LEFT UPPER ARM THAT FLUSHES AND DRAWS GREAT. SHE IS RECIEVING HEPARIN AT 13UNITS/KG/HOUR AND NS TKO. NO BM OVERNIGHT, THACKER BAG IS HANGING TO GRAVITY AND IS PATENT PRODUCING DARK ELVIRA URINE. PT HAS BEEN SLIGHTLY HYPERTENSIVE, WITH A BUMP TO SBP OF 170'S THIS MORNING. HR HAS BEEN NSR IN THE 70'S. BED IS LOW AND LOCKED, BED ALARM ON, CALL LIGHT WITHIN REACH.
--- NOTE | 2019-04-05 07:34 | NUR ---
ASSUMED CARE REPORT FROM JOSE ALLISON. PATIENT SLEEPING. HEPARIN GTT AT 13 UNITS/KG/HR.
--- NOTE | 2019-04-05 07:49 | NUR ---
MD VISIT DR. OLSON IN. ORDERS RECEIVED AND IMPLEMENTED
--- NOTE | 2019-04-05 09:15 | NUR ---
SPEECH THERAPIST CLEARED PATIENT FOR PO
--- NOTE | 2019-04-05 10:54 | NUR ---
MD VISIT DR. CARLIN IN. STATUS CHANGED TO MED/TELE.
--- NOTE | 2019-04-05 10:55 | NUR ---
LATE ENTRY PATIENT HR TO 160. FLUID CHALLENGE GIVEN. HR TO 132. METOPROLOL 5 MG GIVEN. HR 75. BM X 2. SMELL OF HEME. NO SIGN OF BLOOD. AM LOVENOX HELD.
--- NOTE | 2019-04-05 12:05 | NUR ---
PT/OT WORKED WITH PATIENT. SEEMS TO BE BACK TO BASELINE. IMPULSIVE AND FORGETFUL. THINKS SHREYA IS PRESIDENT AND THINKS IT'S 1999. SHE IS ABLE TO USE HER CALL LIGHT APPROPRIATELY, BUT GOT UP TO BSC WITHOUT CALLING AND FORGOT SHE HAD BRIEF ON. MANAGER STAR CLEANED STOOL. DIDN'T LIKE BREAKFAST AND LUNCH OFFERINGS, SO GRILLED CHEESE SANDWICH ORDERED FOR HER.
[2019-04-05 13:39] LABS: Stool Occult Blood Guaiac 1 Neg (Neg)
[2019-04-05 14:07] LABS: Albumin, Blood 2.7 g/dL (3.4-5.0); Anion Gap 7 mmol/L (6-16); Blood Urea Nitrogen 7 mg/dL (8-24); Bun/Creatinine Ratio 7.8 (12.0-20.0); CO2, Blood 25 mmol/L (21-32); Calcium, Blood 7.5 mg/dL (8.5-10.1); Chloride, Blood 112 mmol/L (98-108); Creatinine, Blood 0.89 mg/dL (0.40-1.00); Glomerular Filtration Rate >60 (60-); Glucose, Blood 111 mg/dL (70-99); Phosphorus, Blood 1.7 mg/dL (2.5-4.9); Potassium, Blood 3.6 mmol/L (3.5-5.5); Sodium, Blood 144 mmol/L (136-145)
--- NOTE | 2019-04-05 15:33 | NUR ---
PT TO MRI AND BACK IN WC. REPORT GIVEN TO JOSE VALLEJO. PT BEING TX'D TO 327.
--- NOTE | 2019-04-05 15:46 | NUR ---
SON NOTIFIED OF TX TO 327
--- NOTE | 2019-04-05 19:36 | NUR ---
SHIFT SUMMARY: PATIENT TRANSFER FROM ICU-03 THIS SHIFT. PT HX DEMENTIA; ALERT; COOPERATIVE WITH CARE. NO C/O PAIN SINCE ARRIVAL ON MEDICAL. PT MUST BE UPRIGHT & ALERT FOR ORAL INTAKE. PT & OT FOLLOWING. REPORT GIVEN TO ONCOMING RN.
--- NOTE | 2019-04-06 05:39 | NUR ---
SHIFT SUMMARY: PT IS ALERT AND ORIENTED WITH NOTABLE CONFUSION, BASELINE DEMENTIA. PT CALLS APPROPRIATELY PART OF THE TIME. PT SETTING OF CHAIR ALARM AT BEGINNING OF SHIFT, DID NOT ATTEMPT TO GET OUT OF BED OVERNIGHT. PT DENIES PAIN, NAUSEA, VOMITING, AND SOB. PT DID NOT SLEEP OVERNIGHT. NO ACUTE CHANGES OR COMPLICATIONS THIS SHIFT. BED IN LOW POSITION, CALL LIGHT WITHIN REACH, BED ALARM SET. WILL CONTINUE TO MONITOR.
[2019-04-06 06:01] LABS: BASOPHILS ABSOLUTE AUTO 0.05 K/mm3 (0.00-0.23); BASOPHILS PERCENT AUTO 1 % (0-2); EOSINOPHILS ABSOLUTE AUTO 0.01 K/mm3 (0.00-0.68); EOSINOPHILS PERCENT AUTO 0 % (0-6); Hematocrit 33.3 % (33.0-51.0); Hemoglobin 10.7 g/dL (11.5-16.0); IMMATURE GRAN ABSOLUTE AUTO 0.03 K/mm3 (0.00-0.10); IMMATURE GRAN PERCENT AUTO 0 % (0-1); LYMPHOCYTES ABSOLUTE AUTO 1.67 K/mm3 (0.84-5.20); LYMPHOCYTES PERCENT AUTO 15 % (21-46); MONOCYTES ABSOLUTE AUTO 0.58 K/mm3 (0.16-1.47); MONOCYTES PERCENT AUTO 5 % (4-13); Mean Corpuscular HGB Conc 32.1 g/dL (31.5-36.5); Mean Platelet Volume 11.2 fL (9.1-12.4); NEUTROPHILS ABSOLUTE AUTO 8.47 K/mm3 (1.96-9.15); NEUTROPHILS PERCENT AUTO 78 % (41-73); Platelet Count 221 K/mm3 (150-400); RDW Coefficient Variation 13.4 % (11.7-14.2); RDW Standard Deviation 47.4 fL (35.1-46.3); Red Blood Cell Count 3.45 M/mm3 (3.80-5.20); White Blood Cell Count 10.81 K/mm3 (4.00-11.30)
[2019-04-06 06:04] LABS: Mean Corpuscular Volume 97 fL (80-100)
[2019-04-06 06:17] LABS: Albumin, Blood 2.5 g/dL (3.4-5.0); Anion Gap 5 mmol/L (6-16); Blood Urea Nitrogen 8 mg/dL (8-24); Bun/Creatinine Ratio 10.5 (12.0-20.0); CO2, Blood 25 mmol/L (21-32); Calcium, Blood 7.6 mg/dL (8.5-10.1); Chloride, Blood 112 mmol/L (98-108); Creatinine, Blood 0.76 mg/dL (0.40-1.00); Glomerular Filtration Rate >60 (60-); Glucose, Blood 91 mg/dL (70-99); Phosphorus, Blood 1.6 mg/dL (2.5-4.9); Sodium, Blood 142 mmol/L (136-145)
--- NOTE | 2019-04-06 18:44 | NUR ---
SHIFT SUMMARY PT UP TO BATHROOM WITH 1 PERSON ASSIST USING FWW. REPORTED R GROIN DISCOMFORT TO P.T. WHEN STARTING TO WORK WITH HER. TYLENOL ORDERED AND GIVEN. HAS DENIED PAIN SINCE. SIGNIFICANT BRUISING TO ARMS AND FACE.
--- NOTE | 2019-04-07 04:55 | NUR ---
SHIFT SUMMARY: PT IS AT BASELINE MENTATION, INTERMITTENT CONFUSION. PT CALLS APPROPRIATELY MOST OF THE TIME. PT VERY CALM AND COOPERATIVE WITH CARE OVERNIGHT. PT IS A ONE PERSON ASSIST TO THE BATHROOM. PT DENIES PAIN, NAUSEA, VOMITING, AND SOB. PT SLEPT MUCH BETTER THIS SHIFT THAN THE PREVIOUS. NO ACUTE CHANGES OR COMPLICATIONS. BED IN LOW POSITION, CALL LIGHT WITHIN REACH, BED ALARM SET. WILL CONTINUE TO MONITOR.
[2019-04-07 06:17] LABS: BASOPHILS ABSOLUTE AUTO 0.04 K/mm3 (0.00-0.23); BASOPHILS PERCENT AUTO 0 % (0-2); EOSINOPHILS ABSOLUTE AUTO 0.02 K/mm3 (0.00-0.68); EOSINOPHILS PERCENT AUTO 0 % (0-6); Hematocrit 33.9 % (33.0-51.0); Hemoglobin 10.8 g/dL (11.5-16.0); IMMATURE GRAN ABSOLUTE AUTO 0.02 K/mm3 (0.00-0.10); IMMATURE GRAN PERCENT AUTO 0 % (0-1); LYMPHOCYTES PERCENT AUTO 15 % (21-46); MONOCYTES ABSOLUTE AUTO 0.48 K/mm3 (0.16-1.47); MONOCYTES PERCENT AUTO 5 % (4-13); Mean Corpuscular HGB Conc 31.9 g/dL (31.5-36.5); Mean Corpuscular Volume 97 fL (80-100); Mean Platelet Volume 10.6 fL (9.1-12.4); NEUTROPHILS ABSOLUTE AUTO 7.52 K/mm3 (1.96-9.15); NEUTROPHILS PERCENT AUTO 79 % (41-73); Platelet Count 220 K/mm3 (150-400); RDW Coefficient Variation 13.4 % (11.7-14.2); RDW Standard Deviation 48.4 fL (35.1-46.3); Red Blood Cell Count 3.48 M/mm3 (3.80-5.20); White Blood Cell Count 9.48 K/mm3 (4.00-11.30)
[2019-04-07 08:03] LABS: Anion Gap 5 mmol/L (6-16); Blood Urea Nitrogen 9 mg/dL (8-24); CO2, Blood 26 mmol/L (21-32); Chloride, Blood 115 mmol/L (98-108); Creatinine, Blood 0.75 mg/dL (0.40-1.00); Glomerular Filtration Rate >60 (60-); Glucose, Blood 103 mg/dL (70-99); Magnesium, Blood 1.4 mg/dL (1.6-2.4); Potassium, Blood 3.2 mmol/L (3.5-5.5); Sodium, Blood 146 mmol/L (136-145)
--- NOTE | 2019-04-07 19:26 | NUR ---
SHIFT SUMMARY PT AXO X3, PLEASANT AND COOPERATIVE WITH CARE. PT EAGER TO DISCHARGE HOME. POWERGLIDE PATENT AND INFUSING AT THIS TIME. NO ACUTE CHANGES THIS SHIFT. PT UP WITH 1 ASSIST AND FWW. BED IN LOW POSITION, CALL LIGHT WITHIN REACH, BED ALARM ON.
[2019-04-07 20:31] LABS: Anion Gap 2 mmol/L (6-16); Blood Urea Nitrogen 10 mg/dL (8-24); CO2, Blood 28 mmol/L (21-32); Calcium, Blood 8.2 mg/dL (8.5-10.1); Chloride, Blood 112 mmol/L (98-108); Creatinine, Blood 0.71 mg/dL (0.40-1.00); Glomerular Filtration Rate >60 (60-); Glucose, Blood 106 mg/dL (70-99); Magnesium, Blood 2.2 mg/dL (1.6-2.4); Sodium, Blood 142 mmol/L (136-145)
[2019-04-08 05:57] LABS: Anion Gap 4 mmol/L (6-16); Blood Urea Nitrogen 10 mg/dL (8-24); Bun/Creatinine Ratio 14.1 (12.0-20.0); CO2, Blood 26 mmol/L (21-32); Calcium, Blood 8.2 mg/dL (8.5-10.1); Chloride, Blood 114 mmol/L (98-108); Creatinine, Blood 0.71 mg/dL (0.40-1.00); Glomerular Filtration Rate >60 (60-); Glucose, Blood 100 mg/dL (70-99); Magnesium, Blood 1.9 mg/dL (1.6-2.4); Potassium, Blood 4.2 mmol/L (3.5-5.5); Sodium, Blood 144 mmol/L (136-145)
--- NOTE | 2019-04-08 06:22 | NUR ---
Pleasent and cooperative, alert and orintated, no signs of confusion, not happy when awakened for lab in the am but able to communicate and make needs known, call light in reach, saline locked, no major change in condition noted during shift, will continue to monitor and treat until share bsr with day shift.
[2019-04-08] MEDS ORDERED: Amoxicillin500 MG PO (12:10)
--- NOTE | 2019-04-08 14:45 | NUR ---
DISCHARGE NOTE MEDICATIONS FAXED TO PREFERED PHARMACY. IV DC'D WNL. PT PROVIDED W/HARDCOPY AND VERBAL INSTRUCTIONS FOR DISCHARGE RE: DIAGNOSES, MEDICATIONS, AND FOLLOW UP APPOINTMENTS. PERSONAL POSSESSIONS GATHERED. FAMILY INFORMED AND ARRIVED FOR TRANSPORT TO [facility]. HOSPITALIST ARRIVED TO ANSWER FURTHER QUESTIONS. PT AND FAMILY HAD NO FURTHER QUESTIONS. SENIOR INFORMATION SECURITY CONSULTANT TRANSPORTED PT TO PRIVATE VEHICLE VIA WHEELCHAIR.
== END 2019-04-08 14:15 | disposition home health service (06) | DRG 871 ==
LOC: ER 23:18 → MEDS 04-03 05:10 → ICUE 04-03 05:10 → ICUW 04-03 05:10 → ICUE 04-03 05:25 → MEDS 04-05 15:45 → ENPENDDIS 04-08 11:31 → MEDS 04-08 14:15
PROVIDERS: Emergency Medicine; Hospitalist; Internal Medicine Critical Care Medicine; Internal Medicine Pulmonary Disease; Physician Assistant; ADMIT Internal Medicine
PROC: 0BH17EZ Insertion of Endotracheal Airway into Trachea, Via Natural or Artificial Opening (ICD-10-PCS; principal; 2019-04-03)
PROC: 5A1945Z Respiratory Ventilation, 24-96 Consecutive Hours (ICD-10-PCS; 2019-04-03)
DX: A41.9 Sepsis, unspecified organism (principal); I63.9 Cerebral infarction, unspecified; J96.00 Acute respiratory failure, unspecified whether with hypoxia or hypercapnia; G92 Toxic encephalopathy; I47.2 Ventricular tachycardia; K50.90 Crohn's disease, unspecified, without complications; N39.0 Urinary tract infection, site not specified; E87.6 Hypokalemia; M81.0 Age-related osteoporosis without current pathological fracture; G43.909 Migraine, unspecified, not intractable, without status migrainosus; I16.0 Hypertensive urgency; I48.0 Paroxysmal atrial fibrillation; Z79.01 Long term (current) use of anticoagulants; E78.5 Hyperlipidemia, unspecified; B95.2 Enterococcus as the cause of diseases classified elsewhere
CPT/HCPCS: 31500; 31720; 36415; 36600; 51702; 70450; 70496; 70551; 71045; 71046; 71275; 74175; 74176; 80048; 80053; 80069; 81001; 82272; 82330; 82550; 82803; 82947; 83605; 83735; 83880; 84100; 84132; 84145; 84443; 84484; 85025; 85027; 85610; 85730; 87077; 87086; 87186; 92610; 93005; 93010; 93306; 94002; 94003; 95819; 96365-59; 96375-59; 97116; 97162; 97166; 97530; 97535; 99285-25; A9270; C1751; C9113; G0480; J0282; J0290; J0610; J1644; J1650; J1953; J2405; J2704; J3010; J3475; J3480; J7030; J7040; J7060; P9612; Q9967

== ENCOUNTER 2019-04-17 14:29 | Inpatient (IN) | payer OTHER ==
[~2019-04-17] VITALS: Ht 167.6 cm; Wt 59.0 kg
[~2019-04-17 14:29] MED LIST changes: +ACET500 PO; +ASPI325 PO; +Amoxicillin500 MG PO; +MECL12.5 PO; +NAPR220 PO
[2019-04-17 14:53] LABS: BASOPHILS ABSOLUTE AUTO 0.04 K/mm3 (0.00-0.23); BASOPHILS PERCENT AUTO 0 % (0-2); EOSINOPHILS ABSOLUTE AUTO 0.03 K/mm3 (0.00-0.68); EOSINOPHILS PERCENT AUTO 0 % (0-6); Hemoglobin 12.5 g/dL (11.5-16.0); IMMATURE GRAN ABSOLUTE AUTO 0.05 K/mm3 (0.00-0.10); IMMATURE GRAN PERCENT AUTO 0 % (0-1); LYMPHOCYTES ABSOLUTE AUTO 1.27 K/mm3 (0.84-5.20); LYMPHOCYTES PERCENT AUTO 9 % (21-46); MONOCYTES ABSOLUTE AUTO 0.81 K/mm3 (0.16-1.47); MONOCYTES PERCENT AUTO 6 % (4-13); Mean Corpuscular HGB 30.8 pg (26.0-34.0); Mean Corpuscular HGB Conc 31.3 g/dL (31.5-36.5); Mean Corpuscular Volume 99 fL (80-100); NEUTROPHILS ABSOLUTE AUTO 12.31 K/mm3 (1.96-9.15); NEUTROPHILS PERCENT AUTO 85 % (41-73); Platelet Count 344 K/mm3 (150-400); RDW Coefficient Variation 13.4 % (11.7-14.2); RDW Standard Deviation 49.1 fL (35.1-46.3); Red Blood Cell Count 4.06 M/mm3 (3.80-5.20); White Blood Cell Count 14.51 K/mm3 (4.00-11.30)
[2019-04-17 15:05] LABS: Alanine Aminotransfer (ALT/SGP 17 U/L (12-78); Albumin, Blood 3.2 g/dL (3.4-5.0); Alk Phos 91 U/L (50-136); Anion Gap 5 mmol/L (6-16); Aspartate Aminotrans (AST/SGOT 14 U/L (12-37); Bilirubin, Total 1.3 mg/dL (0.1-1.0); Blood Urea Nitrogen 20 mg/dL (8-24); CO2, Blood 28 mmol/L (21-32); Calcium, Blood 9.3 mg/dL (8.5-10.1); Chloride, Blood 112 mmol/L (98-108); Creatinine, Blood 1.11 mg/dL (0.40-1.00); Globulin, Blood 3.3 g/dL (2.2-4.0); Glomerular Filtration Rate 51 (60-); Glucose, Blood 109 mg/dL (70-99); Potassium, Blood 4.3 mmol/L (3.5-5.5); Sodium, Blood 145 mmol/L (136-145); Total Protein, Blood 6.5 g/dL (6.4-8.2); Troponin I <0.015 ng/mL (0.000-0.040)
[2019-04-17 15:25] LABS: Source, Urine Catheter
[2019-04-17 15:36] LABS: Bilirubin, Urine Neg (Neg); Blood, Urine 5+ (Neg); Glucose Qualitative, Urine Neg (Neg); Ketones, Urine Neg (Neg); Leukocyte Esterase, Urine 3+ (Neg); Nitrite, Urine Pos (Neg); Protein, Urine 3+ (Neg); Specific Gravity, Urine 1.015 (1.003-1.022); Urobilinogen, Urine NORM (Normal)
[2019-04-17 15:44] LABS: Appearance, Urine Clear (Clear); Color, Urine Yellow (P-Yellow)
[2019-04-17 15:47] LABS: Red Blood Cells, Urine 25-50 /hpf (0-2); White Blood Cells, Urine TNTC /hpf (0-5)
[2019-04-17 15:48] LABS: Bacteria Many /hpf; Squamous Epithelial Cells Few /hpf (Few); Transitional Epithelial Cells Few /hpf (0-Rare)
[2019-04-17] MEDS ORDERED: POTA10T PO (17:20)
[2019-04-17] MEDS ORDERED: TRAZ100 PO (17:21)
[2019-04-17] MEDS ORDERED: BUDESONIDE EC3 MG PO (17:21)
[2019-04-17] MEDS ORDERED: OMEPRAZOLE20 MG PO (17:21)
[2019-04-17] MEDS ORDERED: LISI20 PO (17:21)
[2019-04-17] MEDS ORDERED: Aspirin EC81 MG PO (17:22)
[2019-04-17] MEDS ORDERED: ATOR80 PO (17:22)
[2019-04-17] MEDS ORDERED: METO50ER PO (17:22)
[2019-04-17] MEDS ORDERED: MAGOX 400400 MG PO (17:23)
[2019-04-17] MEDS ORDERED: XARELTO1 EACH PO (17:23)
[2019-04-17] MEDS ORDERED: BACL10 PO (17:24)
[2019-04-17] MEDS ORDERED: VITAMIN D31000 UNIT PO (17:25)
[2019-04-17] MEDS ORDERED: CALCIUM 600 +1 EAC7 PO (17:26)
[2019-04-18 00:58] LABS: Adenovirus F 40/41 Not Detected (NOT DETECT); Astrovirus Not Detected (NOT DETECT); Campylobacter Sp Not Detected (NOT DETECT); Cryptosporidium Not Detected (NOT DETECT); Cyclospora Cayetanensis Not Detected (NOT DETECT); E. Coli O157 Not Detected (NOT DETECT); Entamoeba Histolytica Not Detected (NOT DETECT); Enteroaggregative E. coli-EAEC Not Detected (NOT DETECT); Enteropathogenic E. coli-EPEC Not Detected (NOT DETECT); Enterotoxigenic E. coli-ETEC Not Detected (NOT DETECT); Giardia Lamblia Not Detected (NOT DETECT); Norovirus GI/GII Not Detected (NOT DETECT); Plesiomonas Shigelloides Not Detected (NOT DETECT); Rotavirus A Not Detected (NOT DETECT); Salmonella Sp Not Detected (NOT DETECT); Sapovirus Not Detected (NOT DETECT); Shiga Toxin-prod E. coli-STEC Not Detected (NOT DETECT); Shigella/Enteroin E. coli-EIEC Not Detected (NOT DETECT); Vibrio Cholerae Not Detected (NOT DETECT); Vibrio Sp Not Detected (NOT DETECT); Yersinia Enterocolitica Not Detected (NOT DETECT)
--- NOTE | 2019-04-18 06:10 | NUR ---
SHIFT SUMMARY ARRIVED TO MEDICAL FLOOR PRIOR TO SHIFT CHANGE. ALERT AND ANSWERS QUESTIONS APPROPRIATELY. RE-DIRECTION NEEDED. FORGETFUL AT TIMES. FIDGETY. C/O PAIN/DISCOMFORT WHEN ROLLING, DID NOT REQUEST ANY INTERVENTION. APPEARED TO REST MUCH OF SHIFT. IV INFUSING W/O COMPLICATION RUNNING NS @ 100 ML/HR. VSS/AFEBRILE. NO ACUTE CHANGES OVERNIGHT. BED REMAINS IN LOWEST POSITION WITH BED ALARM ON. CALL LIGHT AND BELONGINGS WITHIN REACH. WCTM. REPORT TO ONCOMING RN.
[2019-04-18 07:16] LABS: BASOPHILS ABSOLUTE AUTO 0.05 K/mm3 (0.00-0.23); BASOPHILS PERCENT AUTO 1 % (0-2); EOSINOPHILS PERCENT AUTO 0 % (0-6); Hematocrit 33.9 % (33.0-51.0); Hemoglobin 10.5 g/dL (11.5-16.0); IMMATURE GRAN ABSOLUTE AUTO 0.03 K/mm3 (0.00-0.10); IMMATURE GRAN PERCENT AUTO 0 % (0-1); LYMPHOCYTES ABSOLUTE AUTO 1.25 K/mm3 (0.84-5.20); LYMPHOCYTES PERCENT AUTO 14 % (21-46); MONOCYTES ABSOLUTE AUTO 0.53 K/mm3 (0.16-1.47); MONOCYTES PERCENT AUTO 6 % (4-13); Mean Corpuscular HGB 30.7 pg (26.0-34.0); Mean Corpuscular Volume 99 fL (80-100); Mean Platelet Volume 9.7 fL (9.1-12.4); NEUTROPHILS ABSOLUTE AUTO 7.14 K/mm3 (1.96-9.15); NEUTROPHILS PERCENT AUTO 79 % (41-73); Platelet Count 275 K/mm3 (150-400); RDW Coefficient Variation 13.4 % (11.7-14.2); RDW Standard Deviation 48.4 fL (35.1-46.3); Red Blood Cell Count 3.42 M/mm3 (3.80-5.20)
[2019-04-18 07:37] LABS: Anion Gap 5 mmol/L (6-16); Blood Urea Nitrogen 17 mg/dL (8-24); Bun/Creatinine Ratio 18.6 (12.0-20.0); CO2, Blood 26 mmol/L (21-32); Calcium, Blood 8.1 mg/dL (8.5-10.1); Chloride, Blood 115 mmol/L (98-108); Creatinine, Blood 0.92 mg/dL (0.40-1.00); Glomerular Filtration Rate >60 (60-); Glucose, Blood 92 mg/dL (70-99); Magnesium, Blood 1.3 mg/dL (1.6-2.4); Potassium, Blood 3.7 mmol/L (3.5-5.5); Sodium, Blood 146 mmol/L (136-145)
--- NOTE | 2019-04-18 14:38 | NUR ---
SHIFT SUMMARY PT RESTING QUIETLY THIS AM, BUT AWAKE DURING SHIFT REPORT; ATTENDS ON ONLY, NO GOWN PER PT. PT ADMITTED FOR UTI AND N/V. IN CONTACT [facility] FOR C-DIFF+, WITH HX OF CROHN'S. PER REPORT, PT CAN BE IRRITABLE AND FORGETFUL, WITH SOME DEMENTIA. LIVES WITH SON, SHASHI. D/C'D TO HOME FROM HERE ON 04/08/19. SCATTERED BRUISING ON CHEST AND UPPER EXTREMITIES; PT ON XARELTO. SR ON TELE, PER MX TECH. HX OF OSTEOARTHRITIS WITH C/O BACK PAIN. MEDICATED PER EMAR. PT REPORTED THAT SHE JUST STARTED HAVING TO USE FWW WHEN AMBULATING. BED BATH AND LINEN CHANGE DONE. DIET ADVANCED THIS AM; PT TOLERATED WELL. NO C/O N/V. CALL LT IN REACH. BED ALARM ON FOR SAFETY.
--- NOTE | 2019-04-18 18:42 | NUR ---
PT REMOVING GOWN AGAIN THIS EVENING AND PULLED OUT IV. NEW IV PLACED BY PENELOPE SCHMITZ. PT BECAME VERY AGITATED WHEN SHE PULLED OUT IV AND IVF'S STARTED LEAKING. PT WENT INTO A PANIC UNTIL ABLE TO CALM HER. PT HAS VERY LOW PAIN TOLERANCE. VERY PICKY WITH MEALS WELL. WANTS ONE THING AND THEN SAYS SHE DOESN'T LIKE IT AND DIDN'T ORDER IT. PT HAS DONE THIS ALL DAY LONG AND CAN'T REMEMBER DOING IT. RESTING QUIETLY AT THIS TIME. BED ALARM ON. CALL LT IN REACH.
--- NOTE | 2019-04-19 04:41 | NUR ---
SHIFT SUMMARY ALERT, ABLE TO MAKE NEEDS KNOWN. ANSWERS QUESTIONS APPROPRIATELY. COOPERATIVE WITH CARE. NO ACUTE CHANGES NOTED OVERNIGHT. NO C/O PAIN/DISCOMFORT THIS SHIFT. HAD LOOSE STOOLS; ON PO VANCO. REMAINS INCONTINENT. IV INFUSING W/O COMPLICATION. BED REMAINED IN LOWEST POSITION. CALL LIGHT AND BELONGINGS WITHIN REACH. WCTM.
--- NOTE | 2019-04-19 14:09 | NUR ---
SHIFT SUMMARY NO ACUTE CHANGES TO PRESENT THIS SHIFT. PT RESTED MORE TODAY THAN YESTERDAY. SEEMED TO BE A LITTLE CALMER AND LESS IRRITABLE. DR ALVAREZ IN TO SEE PT THIS AM. PT TO HAVE 1 MORE DAY OF ABX FOR UTI, CROHNS, AND C-DIFF. PT STILL HAVING LOOSE STOOLS; AT LEAST ONE PER SHIFT. ASSISTED PT IN CALLING HER SON TO LET HIM KNOW THAT SHE WOULD BE STAYING ANOTHER DAY. PT LEFT MESSAGE. SON RETURNED CALL THIS AFTERNOON. UPDATE GIVEN. PT C/O BACK PAIN DURING SHIFT REPORT. TYLENOL AND BACLOFEN GIVEN PER EMAR. PT REPORTED IT EFFECTIVE. CALL LT IN REACH. PT ABLE TO USE. BED ALARM ON FOR SAFETY.
--- NOTE | 2019-04-20 03:56 | NUR ---
PT ALERT AND ORIENTED, THOUGH CONTINUES TO BE INCONTINENT OF BOWEL AND URINE. PT DID NOT COMPLAIN OF PAIN THIS SHIFT. ANTIBIOTICS CONTINUE TO BE GIVEN TO PT ORDERED. PT'S STOOL IS NOTED TO BE FIRMING UP. NO OTHER COMPLAINTS FROM PT AT THIS TIME, WILL CONTINUE TO MONITOR.
[2019-04-20 05:17] LABS: BASOPHILS ABSOLUTE AUTO 0.05 K/mm3 (0.00-0.23); BASOPHILS PERCENT AUTO 1 % (0-2); EOSINOPHILS PERCENT AUTO 0 % (0-6); Hematocrit 37.4 % (33.0-51.0); Hemoglobin 11.7 g/dL (11.5-16.0); IMMATURE GRAN ABSOLUTE AUTO 0.03 K/mm3 (0.00-0.10); IMMATURE GRAN PERCENT AUTO 0 % (0-1); LYMPHOCYTES ABSOLUTE AUTO 1.53 K/mm3 (0.84-5.20); LYMPHOCYTES PERCENT AUTO 18 % (21-46); MONOCYTES ABSOLUTE AUTO 0.52 K/mm3 (0.16-1.47); MONOCYTES PERCENT AUTO 6 % (4-13); Mean Corpuscular HGB 30.9 pg (26.0-34.0); Mean Corpuscular HGB Conc 31.3 g/dL (31.5-36.5); Mean Corpuscular Volume 99 fL (80-100); Mean Platelet Volume 9.9 fL (9.1-12.4); NEUTROPHILS ABSOLUTE AUTO 6.54 K/mm3 (1.96-9.15); NEUTROPHILS PERCENT AUTO 76 % (41-73); Platelet Count 286 K/mm3 (150-400); RDW Coefficient Variation 13.2 % (11.7-14.2); RDW Standard Deviation 47.8 fL (35.1-46.3); Red Blood Cell Count 3.79 M/mm3 (3.80-5.20); White Blood Cell Count 8.67 K/mm3 (4.00-11.30)
[2019-04-20 05:41] LABS: Alanine Aminotransfer (ALT/SGP 13 U/L (12-78); Albumin, Blood 2.5 g/dL (3.4-5.0); Albumin/Globulin Ratio 0.9 (0.8-1.8); Alk Phos 73 U/L (50-136); Anion Gap 8 mmol/L (6-16); Aspartate Aminotrans (AST/SGOT 15 U/L (12-37); Bilirubin, Total 0.4 mg/dL (0.1-1.0); Blood Urea Nitrogen 8 mg/dL (8-24); Bun/Creatinine Ratio 13.3 (12.0-20.0); CO2, Blood 24 mmol/L (21-32); Calcium, Blood 7.9 mg/dL (8.5-10.1); Chloride, Blood 114 mmol/L (98-108); Globulin, Blood 2.9 g/dL (2.2-4.0); Glomerular Filtration Rate >60 (60-); Glucose, Blood 91 mg/dL (70-99); Magnesium, Blood 1.7 mg/dL (1.6-2.4); Potassium, Blood 3.6 mmol/L (3.5-5.5); Sodium, Blood 146 mmol/L (136-145); Total Protein, Blood 5.4 g/dL (6.4-8.2)
[2019-04-20] MEDS ORDERED: ACET325 PO (11:48)
[2019-04-20] MEDS ORDERED: AMLO10 PO (11:49)
[2019-04-20] MEDS ORDERED: IBU800 MG PO (11:52)
[2019-04-20] MEDS ORDERED: Vsl#3 Capsule1 EACH PO (11:53)
[2019-04-20] MEDS ORDERED: METR500 PO (11:54)
[2019-04-20] MEDS ORDERED: ONDA4ODT MM (11:55)
[2019-04-20] MEDS ORDERED: VANCOCIN HCL250 MG PO (12:04)
[2019-04-20] MEDS ORDERED: CIPR500 PO (12:06)
[2019-04-20] MEDS ORDERED: MELA3 PO (12:07)
--- NOTE | 2019-04-20 13:30 | NUR ---
attemtpted update on polst.
--- NOTE | 2019-04-20 14:59 | NUR ---
DISCHARGE SUMMARY PT DISCHARGED TO HOME. PT LEFT ROOM VIA WHEELCHAIR WITH SANITATION ENGINEER ESCORT AND WITH SON PRESENT. SON, SHASHI, PICKED UP PT MEDS PRIOR TO DC. PT EDUCATED ON HOME MEDICATIONS, INSTRUCTED TO FOLLOW UP WITH PCP. PT AGREES. IV DCD AND BELONGINGS RETURNED. PT AND SON EXPRESSED UNDERSTANDING.
== END 2019-04-20 15:00 | disposition home or self-care (01) | DRG 372 ==
LOC: ER 14:29 → MEDS 18:12
PROVIDERS: Physician Assistant; ADMIT Internal Medicine
DX: A04.72 Enterocolitis due to Clostridium difficile, not specified as recurrent (principal); N17.9 Acute kidney failure, unspecified; N10 Acute pyelonephritis; I47.1 Supraventricular tachycardia; J44.9 Chronic obstructive pulmonary disease, unspecified; F03.90 Unspecified dementia, unspecified severity, without behavioral disturbance, psychotic disturbance, mood disturbance, and anxiety; I10 Essential (primary) hypertension; E03.9 Hypothyroidism, unspecified; E83.42 Hypomagnesemia; E86.0 Dehydration; Z86.73 Personal history of transient ischemic attack (TIA), and cerebral infarction without residual deficits; M81.0 Age-related osteoporosis without current pathological fracture
CPT/HCPCS: 0097U; 36415; 70450; 74177; 80048; 80053; 81001; 83690; 83735; 84484; 85025; 87077; 87086; 87186; 87324; 93005; 93010; 96361; 96365-59; 96375; 99285-25; A9270; J0696; J2405; J3475; J7030; P9612; Q9967

== ENCOUNTER 2019-05-01 11:21 | Emergency (ER) | payer OTHER ==
[~2019-05-01] VITALS: Ht 162.6 cm; Wt 49.9 kg
[~2019-05-01 11:21] MED LIST changes: +AMLO10 PO; +ATOR80 PO; +Aspirin EC81 MG PO; +BACL10 PO; +CALCIUM 600 +1 EAC7 PO; +CIPR500 PO; +IBU800 MG PO; +MAGOX 400400 MG PO; +MELA3 PO; +METR500 PO; +OMEPRAZOLE20 MG PO; +POTA10T PO; +TRAZ100 PO; +VANCOCIN HCL250 MG PO; +VITAMIN D31000 UNIT PO; +Vsl#3 Capsule1 EACH PO; +XARELTO1 EACH PO
[2019-05-01 12:14] LABS: BASOPHILS ABSOLUTE AUTO 0.06 K/mm3 (0.00-0.23); BASOPHILS PERCENT AUTO 1 % (0-2); EOSINOPHILS ABSOLUTE AUTO 0.01 K/mm3 (0.00-0.68); EOSINOPHILS PERCENT AUTO 0 % (0-6); Hematocrit 35.7 % (33.0-51.0); Hemoglobin 11.4 g/dL (11.5-16.0); IMMATURE GRAN ABSOLUTE AUTO 0.02 K/mm3 (0.00-0.10); IMMATURE GRAN PERCENT AUTO 0 % (0-1); LYMPHOCYTES ABSOLUTE AUTO 1.46 K/mm3 (0.84-5.20); LYMPHOCYTES PERCENT AUTO 18 % (21-46); MONOCYTES ABSOLUTE AUTO 0.54 K/mm3 (0.16-1.47); MONOCYTES PERCENT AUTO 7 % (4-13); Mean Corpuscular HGB 30.1 pg (26.0-34.0); Mean Corpuscular HGB Conc 31.9 g/dL (31.5-36.5); Mean Platelet Volume 10.5 fL (9.1-12.4); NEUTROPHILS ABSOLUTE AUTO 5.91 K/mm3 (1.96-9.15); NEUTROPHILS PERCENT AUTO 74 % (41-73); Platelet Count 232 K/mm3 (150-400); RDW Coefficient Variation 13.2 % (11.7-14.2); RDW Standard Deviation 45.2 fL (35.1-46.3); Red Blood Cell Count 3.79 M/mm3 (3.80-5.20)
[2019-05-01 12:19] LABS: Mean Corpuscular Volume 94 fL (80-100)
[2019-05-01 12:30] LABS: Albumin/Globulin Ratio 1.1 (0.8-1.8); Bilirubin, Total 0.6 mg/dL (0.1-1.0); Bun/Creatinine Ratio 16.7 (12.0-20.0); Calcium, Blood 8.7 mg/dL (8.5-10.1); Creatinine, Blood 1.08 mg/dL (0.40-1.00); Globulin, Blood 2.8 g/dL (2.2-4.0); Total Protein, Blood 5.8 g/dL (6.4-8.2)
[2019-05-01] MEDS ORDERED: Questran4 GM PO (13:48)
== END 2019-05-01 14:30 | disposition home or self-care (01) ==
LOC: ER 11:21
PROVIDERS: Emergency Medicine
DX: E83.42 Hypomagnesemia (principal); B96.89 Other specified bacterial agents as the cause of diseases classified elsewhere; D64.9 Anemia, unspecified; F03.90 Unspecified dementia, unspecified severity, without behavioral disturbance, psychotic disturbance, mood disturbance, and anxiety; Z88.5 Allergy status to narcotic agent; Z79.82 Long term (current) use of aspirin; Z79.899 Other long term (current) drug therapy; Z87.891 Personal history of nicotine dependence
CPT/HCPCS: 36415; 80053; 83735; 85025; 93005; 93010; 96365; 96366; 99283-25; J3475

== ENCOUNTER → 2020-02-07 | Outpatient (CLI) | payer OTHER ==
[~2020-02-07] MED LIST changes: +Questran4 GM PO
[2020-02-07 16:34] LABS: Campylobacter Sp Not Detected (NOT DETECT)
[2020-02-07 16:35] LABS: Adenovirus F 40/41 Not Detected (NOT DETECT); Astrovirus Not Detected (NOT DETECT); Cryptosporidium Not Detected (NOT DETECT); Cyclospora Cayetanensis Not Detected (NOT DETECT); E. Coli O157 Not Detected (NOT DETECT); Entamoeba Histolytica Not Detected (NOT DETECT); Enteroaggregative E. coli-EAEC Not Detected (NOT DETECT); Enteropathogenic E. coli-EPEC Not Detected (NOT DETECT); Enterotoxigenic E. coli-ETEC Not Detected (NOT DETECT); Giardia Lamblia Not Detected (NOT DETECT); Norovirus GI/GII Not Detected (NOT DETECT); Plesiomonas Shigelloides Not Detected (NOT DETECT); Rotavirus A Not Detected (NOT DETECT); Salmonella Sp Not Detected (NOT DETECT); Sapovirus Not Detected (NOT DETECT); Shiga Toxin-prod E. coli-STEC Not Detected (NOT DETECT); Shigella/Enteroin E. coli-EIEC Not Detected (NOT DETECT); Vibrio Cholerae Not Detected (NOT DETECT); Vibrio Sp Not Detected (NOT DETECT); Yersinia Enterocolitica Not Detected (NOT DETECT)
== END ==
LOC: LAB SHORT 11:30 → LAB 11:30 → LAB FUT 12-23 11:20
PROVIDERS: Student in an Organized Health Care Education/Training Program
DX: K50.90 Crohn's disease, unspecified, without complications (principal); K52.9 Noninfective gastroenteritis and colitis, unspecified
CPT/HCPCS: 0097U

== ENCOUNTER 2020-12-18 18:38 | Emergency (ER) | payer OTHER ==
[~2020-12-18] VITALS: Ht 162.6 cm; Wt 52.2 kg
[2020-12-18] MEDS ORDERED: Robaxin750 MG PO (21:24)
[2020-12-18] MEDS ORDERED: Norco 5-325 Ta1 EACH PO (21:24)
== END 2020-12-18 22:45 | disposition home or self-care (01) ==
LOC: ER 18:38
DX: S20.229A Contusion of unspecified back wall of thorax, initial encounter (principal); Z79.82 Long term (current) use of aspirin; Z79.899 Other long term (current) drug therapy; Z79.52 Long term (current) use of systemic steroids; Z88.5 Allergy status to narcotic agent; Z88.8 Allergy status to other drugs, medicaments and biological substances; W01.10XA Fall on same level from slipping, tripping and stumbling with subsequent striking against unspecified object, initial encounter
CPT/HCPCS: 72070; 96374; 99283-25; A9270; A9270-GY; J1885

== ENCOUNTER 2021-04-29 00:34 | Inpatient (IN) | payer OTHER ==
[~2021-04-29] VITALS: Ht 165.1 cm; Wt 56.7 kg
[~2021-04-29 00:34] MED LIST changes: +Robaxin750 MG PO
[2021-04-29] MEDS ORDERED: TRAZ100 PO (02:13)
[2021-04-29] MEDS ORDERED: BUPROPION XL150 M1 PO (02:13)
[2021-04-29] MEDS ORDERED: PROP10 PO (02:13)
[2021-04-29 02:44] LABS: BASOPHILS ABSOLUTE AUTO 0.08 K/mm3 (0.00-0.23); BASOPHILS PERCENT AUTO 0 % (0-2); EOSINOPHILS ABSOLUTE AUTO 0.01 K/mm3 (0.00-0.68); EOSINOPHILS PERCENT AUTO 0 % (0-6); Hematocrit 32.1 % (33.0-51.0); Hemoglobin 9.8 g/dL (11.5-16.0); IMMATURE GRAN PERCENT AUTO 1 % (0-1); LYMPHOCYTES PERCENT AUTO 8 % (21-46); MONOCYTES ABSOLUTE AUTO 0.95 K/mm3 (0.16-1.47); MONOCYTES PERCENT AUTO 5 % (4-13); Mean Corpuscular HGB Conc 30.5 g/dL (31.5-36.5); Mean Corpuscular Volume 82 fL (80-100); Mean Platelet Volume 10.5 fL (9.1-12.4); NEUTROPHILS ABSOLUTE AUTO 16.79 K/mm3 (1.96-9.15); NEUTROPHILS PERCENT AUTO 86 % (41-73); Platelet Count 280 K/mm3 (150-400); RDW Coefficient Variation 16.8 % (11.7-14.2); RDW Standard Deviation 50.1 fL (35.1-46.3); Red Blood Cell Count 3.92 M/mm3 (3.80-5.20); White Blood Cell Count 19.53 K/mm3 (4.00-11.30)
[2021-04-29 03:02] LABS: Albumin, Blood 2.8 g/dL (3.4-5.0); Albumin/Globulin Ratio 1.1 (0.8-1.8); Bilirubin, Total 0.8 mg/dL (0.1-1.0); Bun/Creatinine Ratio 14.7 (12.0-20.0); Calcium, Blood 8.7 mg/dL (8.5-10.1); Creatinine, Blood 1.02 mg/dL (0.40-1.00); Globulin, Blood 2.6 g/dL (2.2-4.0); Potassium, Blood 4.5 mmol/L (3.5-5.5); Total Protein, Blood 5.4 g/dL (6.4-8.2)
[2021-04-29 04:25] LABS: Source, Urine Clean Catch
[2021-04-29 04:31] LABS: SARS-Cov-2 (COVID-19) PCR, MMC NEGATIVE (NEGATIVE)
[2021-04-29 04:37] LABS: Bilirubin, Urine Neg (Neg); Blood, Urine 5+ (Neg); Glucose Qualitative, Urine Neg (Neg); Ketones, Urine Neg (Neg); Leukocyte Esterase, Urine 1+ (Neg); Nitrite, Urine Neg (Neg); Protein, Urine 2+ (Neg); Specific Gravity, Urine 1.005 (1.003-1.022); Urobilinogen, Urine NORM (Normal)
[2021-04-29 04:55] LABS: Appearance, Urine Hazy (Clear); Color, Urine Yellow (P-Yellow); White Blood Cells, Urine 0-2 /hpf (0-5)
[2021-04-29 04:56] LABS: Bacteria Few /hpf; Red Blood Cells, Urine TNTC /hpf (0-2); Squamous Epithelial Cells Rare /hpf (Few)
--- NOTE | 2021-04-29 06:25 | NUR ---
PT ADMITTED FROM ER FOR L HIP+L SHOULDER FX AT APPROX 0435. HX DEMENTIA. PT APPEARS TO BE A&O. POOR HISTORIAN. CALM AND COOPERATIVE WITH CARE. LLE EXTERNALLY ROTATED. NPO. PER MED REC, PT TAKES XERELTO. PT UNSURE WHY SHE TAKES IT. ORTHOPEDIC CONSULT CALLED IN. COVID TEST COMPLETE. THACKER CATHETER PATENT AND DRAINING.
--- NOTE | 2021-04-29 09:20 | NUR ---
PHONE UPDATE SPOKE WITH RAS, PT'S CAREGIVER, FOR STATUS UPDATE. SHE STATES SHE GAVE XARELTO TO PT LAST PM AROUND 1999. INFORMED I WILL RELAY THAT TO THE DOCTOR AND KEEP HER UPDATED.
--- NOTE | 2021-04-29 11:43 | NUR ---
DR. SANCHEZ NOTIFIED OF CONSULT, WILL SEE PT AFTER LUNCH, OK'D FOR REGULAR LUNCH, POSSIBLE SURGERY TOMORROW.
[2021-04-29 15:07] LABS: BASOPHILS ABSOLUTE AUTO 0.04 K/mm3 (0.00-0.23); BASOPHILS PERCENT AUTO 0 % (0-2); EOSINOPHILS ABSOLUTE AUTO 0.04 K/mm3 (0.00-0.68); EOSINOPHILS PERCENT AUTO 0 % (0-6); Hematocrit 28.9 % (33.0-51.0); Hemoglobin 8.5 g/dL (11.5-16.0); IMMATURE GRAN PERCENT AUTO 1 % (0-1); LYMPHOCYTES ABSOLUTE AUTO 2.13 K/mm3 (0.84-5.20); LYMPHOCYTES PERCENT AUTO 11 % (21-46); MONOCYTES ABSOLUTE AUTO 1.41 K/mm3 (0.16-1.47); MONOCYTES PERCENT AUTO 7 % (4-13); Mean Corpuscular HGB 24.7 pg (26.0-34.0); Mean Corpuscular HGB Conc 29.4 g/dL (31.5-36.5); Mean Corpuscular Volume 84 fL (80-100); Mean Platelet Volume 10.9 fL (9.1-12.4); NEUTROPHILS ABSOLUTE AUTO 16.16 K/mm3 (1.96-9.15); NEUTROPHILS PERCENT AUTO 81 % (41-73); Platelet Count 308 K/mm3 (150-400); RDW Coefficient Variation 16.9 % (11.7-14.2); RDW Standard Deviation 50.8 fL (35.1-46.3); Red Blood Cell Count 3.44 M/mm3 (3.80-5.20); White Blood Cell Count 19.88 K/mm3 (4.00-11.30)
[2021-04-29 15:20] LABS: Albumin, Blood 2.5 g/dL (3.4-5.0); Bilirubin, Total 0.6 mg/dL (0.1-1.0); Bun/Creatinine Ratio 11.4 (12.0-20.0); Creatinine, Blood 1.75 mg/dL (0.40-1.00); Globulin, Blood 2.6 g/dL (2.2-4.0); Total Protein, Blood 5.1 g/dL (6.4-8.2)
--- NOTE | 2021-04-29 18:24 | NUR ---
SHIFT SUMMARY PT IS HERE FOR FX OF LEFT INTERTROCHANTERIC FEMUR AND FX OF LEFT SHOULDER DUE TO FALL AT HOME. SURGERY IS SCHEDULED FOR TOMORROW. PT HAS BEEN IN A LOT OF PAIN AND HAS BEEN TREATED PER EMAR. FENTANYL CAUSED A DECREASE IN PT'S BP. HAD AN EPISODE OF INCREASED PULSE AND DECREASED BP AND WAS CONTACTED. EKG WAS PERFORMED AND PT WAS TREATED WITH MEDS PER . PT WAS GIVEN FLUID BOLUS X2 ALONG WITH MEDS AND PT'S VITALS IMPROVED. CONTINUED TO MONITOR PT. PT HAS A THACKER IN PLACE AND IS DRAINING DARK ELVIRA COLORED URINE. PT CURRENTLY HAS A UTI THAT IS BEING TREATED WITH ABX. PT HAS SOME CONFUSION BUT IS PLEASANT. CURRENTLY RESTING IN BED. PT HAS NOT WANTED TO EAT OR DRINK TODAY.
[2021-04-29 20:24] LABS: BASOPHILS ABSOLUTE AUTO 0.05 K/mm3 (0.00-0.23); BASOPHILS PERCENT AUTO 0 % (0-2); EOSINOPHILS PERCENT AUTO 0 % (0-6); Hematocrit 26.3 % (33.0-51.0); Hemoglobin 7.8 g/dL (11.5-16.0); IMMATURE GRAN ABSOLUTE AUTO 0.13 K/mm3 (0.00-0.10); IMMATURE GRAN PERCENT AUTO 1 % (0-1); LYMPHOCYTES ABSOLUTE AUTO 2.72 K/mm3 (0.84-5.20); LYMPHOCYTES PERCENT AUTO 10 % (21-46); MONOCYTES ABSOLUTE AUTO 1.87 K/mm3 (0.16-1.47); MONOCYTES PERCENT AUTO 7 % (4-13); Mean Corpuscular HGB 25.2 pg (26.0-34.0); Mean Corpuscular HGB Conc 29.7 g/dL (31.5-36.5); Mean Corpuscular Volume 85 fL (80-100); Mean Platelet Volume 10.8 fL (9.1-12.4); NEUTROPHILS PERCENT AUTO 82 % (41-73); Platelet Count 328 K/mm3 (150-400); RDW Coefficient Variation 17.2 % (11.7-14.2); RDW Standard Deviation 52.9 fL (35.1-46.3); White Blood Cell Count 26.57 K/mm3 (4.00-11.30)
--- NOTE | 2021-04-30 01:57 | NUR ---
DR. ROACH NOTIFIED OF LAST H&H AND CURRENT VS. AWARE OF POSSIBLE SURGERY FOR L HIP TOMORROW. PLAN TO TRANSFUSE 1 UNIT PRBC'S.
[2021-04-30 06:42] LABS: BASOPHILS ABSOLUTE AUTO 0.07 K/mm3 (0.00-0.23); BASOPHILS PERCENT AUTO 0 % (0-2); EOSINOPHILS ABSOLUTE AUTO 0.16 K/mm3 (0.00-0.68); EOSINOPHILS PERCENT AUTO 1 % (0-6); Hematocrit 30.8 % (33.0-51.0); Hemoglobin 9.6 g/dL (11.5-16.0); IMMATURE GRAN ABSOLUTE AUTO 0.19 K/mm3 (0.00-0.10); IMMATURE GRAN PERCENT AUTO 1 % (0-1); LYMPHOCYTES ABSOLUTE AUTO 1.89 K/mm3 (0.84-5.20); LYMPHOCYTES PERCENT AUTO 6 % (21-46); MONOCYTES ABSOLUTE AUTO 1.95 K/mm3 (0.16-1.47); MONOCYTES PERCENT AUTO 6 % (4-13); Mean Corpuscular HGB 27.3 pg (26.0-34.0); Mean Corpuscular HGB Conc 31.2 g/dL (31.5-36.5); Mean Corpuscular Volume 88 fL (80-100); Mean Platelet Volume 10.5 fL (9.1-12.4); NEUTROPHILS ABSOLUTE AUTO 26.25 K/mm3 (1.96-9.15); NEUTROPHILS PERCENT AUTO 86 % (41-73); NRBC ABSOLUTE 0.02 K/mm3 (0.00-0.02); NRBC Auto 0.1 /100 WBC (0.0-0.2); Platelet Count 283 K/mm3 (150-400); RDW Coefficient Variation 16.1 % (11.7-14.2); RDW Standard Deviation 50.6 fL (35.1-46.3); Red Blood Cell Count 3.52 M/mm3 (3.80-5.20); White Blood Cell Count 30.51 K/mm3 (4.00-11.30)
[2021-04-30 07:06] LABS: Albumin, Blood 2.4 g/dL (3.4-5.0); Bilirubin, Total 0.9 mg/dL (0.1-1.0); Bun/Creatinine Ratio 11.9 (12.0-20.0); Calcium, Blood 7.7 mg/dL (8.5-10.1); Creatinine, Blood 2.44 mg/dL (0.40-1.00); Globulin, Blood 2.5 g/dL (2.2-4.0); Magnesium, Blood 1.6 mg/dL (1.6-2.4); Phosphorus, Blood 6.5 mg/dL (2.5-4.9); Potassium, Blood 5.4 mmol/L (3.5-5.5); Thyroid Stimulating Hormone 1.2 uIU/mL (0.360-4.800); Total Protein, Blood 4.9 g/dL (6.4-8.2)
--- NOTE | 2021-04-30 07:30 | NUR ---
SHIFT SUMMARY: PT ALERT TO SELF AND SURROUNDINGS. PT ANXIOUS AND TEARFUL AT TIMES. PT PALE IN BEGINNING OF SHIFT, TACHY AND HYPOTENSIVE. 1 UNIT RBC'S INFUSED PER ORDERS. PT C/O NAUSEA THROUGHOUT NIGHT AND HAD A LARGE AMOUNT OF EMESIS OUT THIS MORNING. EMESIS BROWN IN COLOR. MEDICATED WITH 25MCG OF FENTANYL ONCE. IVF INFUSING AT 100CC/HR PER ORDERS. WBC'S HAVE INCREASED TO 30 THIS MORNING. KIDNEY FUNCTION DECLINING. ONLY 50CC OF DARK URINE EMPTIED FROM CATHETER.
[2021-04-30 10:00] LABS: Hematocrit 30.8 % (33.0-51.0); Hemoglobin 9.4 g/dL (11.5-16.0); Mean Corpuscular HGB 26.4 pg (26.0-34.0); Mean Corpuscular HGB Conc 30.5 g/dL (31.5-36.5); Mean Corpuscular Volume 87 fL (80-100); Mean Platelet Volume 10.9 fL (9.1-12.4); NRBC ABSOLUTE 0.02 K/mm3 (0.00-0.02); NRBC Auto 0.1 /100 WBC (0.0-0.2); Platelet Count 289 K/mm3 (150-400); RDW Coefficient Variation 15.9 % (11.7-14.2); RDW Standard Deviation 50.4 fL (35.1-46.3); Red Blood Cell Count 3.56 M/mm3 (3.80-5.20); White Blood Cell Count 29.81 K/mm3 (4.00-11.30)
--- NOTE | 2021-04-30 12:18 | NUR ---
ELEVATED LACTIC ACID LACTIC ACID LEVEL RETURNED CRITICALLY HIGH AT 4.2. DR. ODEN WAS NOTIFIED AT 1035. SEPSIS BOLUS ORDERED PER DR ODEN 30ML/KG OVER 3 HOURS OF NORMAL SALINE AND SHOULD INCLUDE BICARB TO BE GIVEN. PT WILL NEED 1500ML BOULS OVER 3 HOURS. SHE WILL GET 225ML OF BICARB DURING 3 HOURS OF BOLUS AND 1275ML OF NORMALS SALINE DURING 3 HOUR BOLUS FOR A TOTAL OF 1500ML. ORDER PER DR. ODEN.
[2021-04-30 17:37] LABS: Hematocrit 27.3 % (33.0-51.0); Hemoglobin 8.4 g/dL (11.5-16.0); Mean Corpuscular HGB 27.3 pg (26.0-34.0); Mean Corpuscular HGB Conc 30.8 g/dL (31.5-36.5); Mean Corpuscular Volume 89 fL (80-100); Mean Platelet Volume 10.8 fL (9.1-12.4); NRBC ABSOLUTE 0.05 K/mm3 (0.00-0.02); NRBC Auto 0.2 /100 WBC (0.0-0.2); Platelet Count 255 K/mm3 (150-400); RDW Coefficient Variation 16.5 % (11.7-14.2); RDW Standard Deviation 53.5 fL (35.1-46.3); Red Blood Cell Count 3.08 M/mm3 (3.80-5.20); White Blood Cell Count 27.62 K/mm3 (4.00-11.30)
--- NOTE | 2021-04-30 18:26 | NUR ---
SHIFT SUMMARY PT ADMITTED FOR FX OF LEFT HIP AND LEFT SHOULDER DUE TO FALL AT HOME. PT IS A&O TO SELF AND SOMETIMES SITUATION AND LOCATION. GETS CONFUSED EASILY. PT HAS BEEN IN A LOT OF PAIN TODAY AND TREATED PER EMAR. HAS HAD N/V THROUGHOUT THE DAY WITH 300 ML OF BROWN/BENITEZ COFFEE GROUND TYPE EMESIS THIS AM. DOCTOR NOTIFIED AND PT PUT ON SEPSIS PROTOCOL. N/V TREATED PER EMAR. FLUIDS AND ABX INFUSED. PT TOLERATED WELL. PT ASKED FOR BED ARELLANO TO HAVE BM MULTIPLE TIMES BUT WAS NOT ABLE TO. WAS ABLE TO GET 200 ML OF ELVIRA COLORED URINE TODAY. GOAL IS HAVE SURGERY TOMORROW IF PT IS STABLE.
[2021-05-01 06:24] LABS: Hematocrit 19.4 % (33.0-51.0); Hemoglobin 6.3 g/dL (11.5-16.0); Mean Corpuscular HGB 27.3 pg (26.0-34.0); Mean Corpuscular HGB Conc 32.5 g/dL (31.5-36.5); Mean Platelet Volume 10.5 fL (9.1-12.4); NRBC ABSOLUTE 0.04 K/mm3 (0.00-0.02); NRBC Auto 0.2 /100 WBC (0.0-0.2); Platelet Count 205 K/mm3 (150-400); RDW Standard Deviation 51.6 fL (35.1-46.3); Red Blood Cell Count 2.31 M/mm3 (3.80-5.20); White Blood Cell Count 18.21 K/mm3 (4.00-11.30)
[2021-05-01 06:38] LABS: Mean Corpuscular Volume 84 fL (80-100)
[2021-05-01 06:50] LABS: Alanine Aminotransfer (ALT/SGP 20 U/L (12-78); Alk Phos 56 U/L (50-136); Anion Gap 5 mmol/L (6-16); Aspartate Aminotrans (AST/SGOT 21 U/L (12-37); Bilirubin, Direct 0.2 mg/dL (0.0-0.3); Bilirubin, Indirect 0.3 mg/dL (0.1-0.7); Bilirubin, Total 0.5 mg/dL (0.1-1.0); Blood Urea Nitrogen 39 mg/dL (8-24); Bun/Creatinine Ratio 19.8 (12.0-20.0); CO2, Blood 27 mmol/L (21-32); CPK Creatine Kinase 185 U/L (26-193); Calcium, Blood 6.9 mg/dL (8.5-10.1); Chloride, Blood 112 mmol/L (98-108); Creatinine, Blood 1.97 mg/dL (0.40-1.00); Glomerular Filtration Rate 25 (60-); Glucose, Blood 111 mg/dL (70-99); Magnesium, Blood 1.5 mg/dL (1.6-2.4); Phosphorus, Blood 3.4 mg/dL (2.5-4.9); Potassium, Blood 3.6 mmol/L (3.5-5.5); Sodium, Blood 144 mmol/L (136-145); Vancomycin, Random 10.6 ug/mL
[2021-05-01 06:55] LABS: BAND PERCENT MAN 18 % (0-8); BASOPHILS PERCENT MAN 0 % (0-2); EOSINOPHILS PERCENT MAN 0 % (0-6); LYMPHOCYTES ABSOLUTE MAN 0.36 K/mm3 (0.84-5.20); LYMPHOCYTES PERCENT MAN 2 % (21-46); MONOCYTES ABSOLUTE MAN 0.91 K/mm3 (0.16-1.47); MONOCYTES PERCENT MAN 5 % (4-13); NEUTROPHILS ABSOLUTE MAN 16.93 K/mm3 (1.96-9.15); SEG NEUTROPHILS PERCENT MAN 75 % (41-73); TOTAL CELLS COUNTED 100
--- NOTE | 2021-05-01 08:05 | NUR ---
SHIFT SUMMARY PT RESTED WELL T/O NIGHT. CONFUSED/COOPERATIVE WITH CARE. LEFT HIP FX EXTERNAL ROTATION. PPP, DENIES N/T ALL EXTREMITIES, MOVES ALL TOES/FINGERS WELL. LEFT SHOULD WITH INCREASED SWELLING/HEMATOMA THIS SHIFT, ELEVATED TOLERATED. DISCOMFORT DECREASED WITH 25mcg FENTANYL. NO NAUSEA/EMESIS THIS SHIFT IVF + ABX PER ORDERS. PT HAD LARGE LIQUID STOOL THIS AM. CURRENTLY RESTING IN BED. REPORT TO DAY SHIFT RN RAMA.
--- NOTE | 2021-05-01 11:28 | NUR ---
BLOOD TRANSFUSION BEGAN AT THIS TIME. PT LAYING IN BED, SHE IS CONFUSED BUT UNDERSTANDS NEED FOR BLOOD TRANSFUSION. SHE DENIES ANY NEEDS AT THIS TIME AND HAS HER CALL LIGHT IN REACH.
--- NOTE | 2021-05-01 14:36 | NUR ---
TRANSFUSION DONE AT THIS TIME. PT TOLERATED WELL, SHE DENIES ANY SHORTNESS OF BREATH.
[2021-05-01 16:34] LABS: Hematocrit 24.9 % (33.0-51.0); Hemoglobin 8.1 g/dL (11.5-16.0)
--- NOTE | 2021-05-01 16:44 | NUR ---
SHIFT SUMMARY PT CONFUSED BUT COOPERATIVE, UNABLE TO ANSWER QUESTIONS APPROPRIATLY. OFTEN TANGENTAL. PT ATTEMPTED TO PULL THACKER OUT AND GET OOB AT TIMES DURING SHIFT. BED ALARM ON. BLOOD TRANSFUSION DURING SHIFT, TOLERATED WELL. LEFT ARM HAS LARGE BRUISING AND SWELLING. PT REPORTS PAIN TO LEFT LEG PRIMARILY. LEFT ARM IN SLING.
--- NOTE | 2021-05-01 18:11 | NUR ---
Pt seen this morning epressing to staff she wants to . pt guarding her arm. complains of apin to arm and leg. Arm bruised and discolored very swollen at risk for compartment syndrome. she denies nausea. Pt tearfull review of pain meds with nursing will follow for symptom managment and theraputic visits. will follow up with family for polst and AD as she will need rehab. May need a new life plan for her living situation.
--- NOTE | 2021-05-02 05:08 | NUR ---
SHIFT SUMMARY PT RESTED WELL T/O NIGHT. CONFUSED/COOPERATIVE WITH CARE. IVF PER ORDERS. PT MOVES SELF WELL IN BED. SWELLING + BRUISING TO LUE, NO INCREASE NOTED THIS SHIFT. BED ALARM ON FOR SAFETY. NO ACUTE CHANGES OVER NIGHT. PT CURRENTLY RESTING WELL IN BED WITH CALL LIGHT IN REACH.
[2021-05-02 07:04] LABS: BASOPHILS ABSOLUTE AUTO 0.02 K/mm3 (0.00-0.23); BASOPHILS PERCENT AUTO 0 % (0-2); EOSINOPHILS PERCENT AUTO 0 % (0-6); Hematocrit 23.3 % (33.0-51.0); Hemoglobin 7.5 g/dL (11.5-16.0); IMMATURE GRAN ABSOLUTE AUTO 0.15 K/mm3 (0.00-0.10); IMMATURE GRAN PERCENT AUTO 1 % (0-1); LYMPHOCYTES PERCENT AUTO 7 % (21-46); MONOCYTES ABSOLUTE AUTO 0.86 K/mm3 (0.16-1.47); MONOCYTES PERCENT AUTO 6 % (4-13); Mean Corpuscular HGB Conc 32.2 g/dL (31.5-36.5); Mean Corpuscular Volume 84 fL (80-100); Mean Platelet Volume 9.8 fL (9.1-12.4); NEUTROPHILS PERCENT AUTO 86 % (41-73); NRBC ABSOLUTE 0.03 K/mm3 (0.00-0.02); NRBC Auto 0.2 /100 WBC (0.0-0.2); Platelet Count 156 K/mm3 (150-400); RDW Coefficient Variation 16.7 % (11.7-14.2); RDW Standard Deviation 50.2 fL (35.1-46.3); Red Blood Cell Count 2.78 M/mm3 (3.80-5.20); White Blood Cell Count 14.33 K/mm3 (4.00-11.30)
[2021-05-02 07:32] LABS: Albumin, Blood 1.9 g/dL (3.4-5.0); Anion Gap 1 mmol/L (6-16); Blood Urea Nitrogen 30 mg/dL (8-24); CO2, Blood 33 mmol/L (21-32); Calcium, Blood 7.3 mg/dL (8.5-10.1); Chloride, Blood 110 mmol/L (98-108); Creatinine, Blood 0.97 mg/dL (0.40-1.00); Glomerular Filtration Rate 56 (60-); Glucose, Blood 94 mg/dL (70-99); Magnesium, Blood 1.7 mg/dL (1.6-2.4); Phosphorus, Blood 1.9 mg/dL (2.5-4.9); Potassium, Blood 3.1 mmol/L (3.5-5.5); Sodium, Blood 144 mmol/L (136-145); Vancomycin, Random 9.7 ug/mL
--- NOTE | 2021-05-02 10:07 | NUR ---
PT LEFT FOR SURGERY AT THIS TIME.
--- NOTE | 2021-05-02 10:41 | NUR ---
1010-PT IN PACU FOR PREOP. DR. THOMPSON HERE TO SEE PT. LEFT ARM DEEPLY BRUISED FROM UPPER ARM TO HAND. NO C/O PAIN AT THIS TIME. FORGETFUL BUT ORIENTS TO X3 QUICKLY.PAS TO LOWER LEGS
--- NOTE | 2021-05-02 11:17 | NUR ---
05/02/21 1117 HUMASHARON RODRIGUEZ PT TO OPERATING ROOM WITH PRE EXISTING THACKER CATH IN PLACE.
--- NOTE | 2021-05-02 12:42 | NUR ---
PT RETURNED FROM SURGERY. SATS 86-88% ON ROOM AIR, PLACED ON 4L NASAL CANULA, SATS 92-94%. PT RESPONDS TO VERBAL STIMULI BUT FALLS ASLEEP QUICKLY. NO GRIMACE ON HER FACE AND DOES NOT REPORT PAIN. DRESSING CDI. SCD'S ON. CALL LIGHT IN REACH, BED ALARM ON.
[2021-05-02 13:08] LABS: Stool Occult Blood Guaiac 1 Pos (Neg)
--- NOTE | 2021-05-02 18:20 | NUR ---
SHIFT SUMMARY S/P L HIP REPAIR. NO ACUTE CHANGES SINCE ARRIVAL TO UNIT, PT REMAINS VERY TIRED AND IS SLEEPING WELL. SHE DENIES PAIN. PLACED ON 2L NASAL CANULA, WAS 89% ON ROOM AIR WHILE ASLEEP. SATS 94% WHILE ASLEEP AT THIS TIME. DRESSINGS CDI. THACKER PATENT AND DRAINING.
--- NOTE | 2021-05-03 05:07 | NUR ---
SHIFT SUMMARY POD#6 LAP APPI AAOX4. DISCOMFORT CONTROLLED WITH 2 NORCO Q6H. NO NAUSEA/EMESIS. ABD INCISIONS X2 DIXIE. BALWINDER SECURE WITH SCANT AMOUNT SS OUT. INDEPENDENT IN ROOM. GOOD PO INTAKE + OUTPUT. X2 LOOSE STOOLS THIS SHIFT. NO ACUTE CHANGES OVER NIGHT. PT CURRENTLY RESTING IN BED WITH CALL LIGHT IN REACH.
--- NOTE | 2021-05-03 06:09 | NUR ---
SHIFT SUMMARY POD#1 LEFT HIP GAMMA NAIL CONFUSED/COOPERATIVE. PT DROWSY T/O SHIFT. VVS, 2L VIA NC, RESPIRATIONS EVEN/UNLABORED. NO PAIN/NAUSEA MEDS THIS SHIFT. DRESSING TO LEFT HIP C/D/I. PPP, MOVES TOES WELL, DENIES N/T ALL EXTREMITIES. IVF PER ORDERS. PT RESTED WELL T/O NIGHT, AWAKENS EASILY BUT QUICKLY FALLS BACK ASLEEP. BED ALARM ON FOR SAFETY. PT CURRENTLY RESTING WELL IN BED WITH CALL LIGHT IN REACH.
[2021-05-03 06:31] LABS: BASOPHILS ABSOLUTE AUTO 0.01 K/mm3 (0.00-0.23); BASOPHILS PERCENT AUTO 0 % (0-2); EOSINOPHILS PERCENT AUTO 0 % (0-6); Hematocrit 22.6 % (33.0-51.0); Hemoglobin 7.2 g/dL (11.5-16.0); IMMATURE GRAN ABSOLUTE AUTO 0.09 K/mm3 (0.00-0.10); IMMATURE GRAN PERCENT AUTO 1 % (0-1); LYMPHOCYTES ABSOLUTE AUTO 0.63 K/mm3 (0.84-5.20); LYMPHOCYTES PERCENT AUTO 4 % (21-46); MONOCYTES ABSOLUTE AUTO 0.52 K/mm3 (0.16-1.47); MONOCYTES PERCENT AUTO 4 % (4-13); Mean Corpuscular HGB 27.6 pg (26.0-34.0); Mean Corpuscular HGB Conc 31.9 g/dL (31.5-36.5); Mean Corpuscular Volume 87 fL (80-100); Mean Platelet Volume 10.6 fL (9.1-12.4); NEUTROPHILS ABSOLUTE AUTO 13.15 K/mm3 (1.96-9.15); NEUTROPHILS PERCENT AUTO 91 % (41-73); NRBC ABSOLUTE 0.02 K/mm3 (0.00-0.02); NRBC Auto 0.1 /100 WBC (0.0-0.2); Platelet Count 168 K/mm3 (150-400); RDW Coefficient Variation 17.2 % (11.7-14.2); RDW Standard Deviation 52.9 fL (35.1-46.3); Red Blood Cell Count 2.61 M/mm3 (3.80-5.20)
[2021-05-03 06:51] LABS: Albumin, Blood 1.8 g/dL (3.4-5.0); Anion Gap 3 mmol/L (6-16); Blood Urea Nitrogen 29 mg/dL (8-24); Bun/Creatinine Ratio 34.3 (12.0-20.0); CO2, Blood 31 mmol/L (21-32); Calcium, Blood 7.2 mg/dL (8.5-10.1); Chloride, Blood 110 mmol/L (98-108); Creatinine, Blood 0.85 mg/dL (0.40-1.00); Glomerular Filtration Rate >60 (60-); Glucose, Blood 94 mg/dL (70-99); Magnesium, Blood 1.8 mg/dL (1.6-2.4); Phosphorus, Blood 2.5 mg/dL (2.5-4.9); Sodium, Blood 144 mmol/L (136-145)
[2021-05-03 12:57] LABS: Hematocrit 25.2 % (33.0-51.0); Hemoglobin 7.9 g/dL (11.5-16.0)
--- NOTE | 2021-05-03 16:56 | NUR ---
SHIFT SUMMARY POD 1 FOR LEFT HIP GAMMA NAIL. AQUACEL DRESSINGS IN PLACE. ROUGHLY A QUARTER SIZE DRAINAGE SHOWING ON EACH AQUACEL. DRESSINGS C/D/I. SIGNIFICANT SWELLING AND BRUISING IN LEFT ARM. ULTRASOUND TODAY SHOWED NO BLOOD CLOTS. LEFT ARM IS IN SLING. PT TOLERATING FLUIDS AND FOOD WITHOUT REPORT OF N/V. PT WAS ABLE TO HAVE BM TODAY ON BEDPAN. THACKER D/C'D TODAY AND ATTENDS IN PLACE. PT CAN CALL APPROPRIATELY BUT DOESN'T ALWAYS MAKE IT IN TIME TO GET A BEDPAN. PAIN IS CONTROLLED WELL PER EMAR WITH NORCO. WEANED PT OFF OF NC 4L O2. PT TOLERATED WELL AND O2 SATS IN HIGH 90'S. WILL CONTINUE TO MONITOR.
[2021-05-04 05:13] LABS: BASOPHILS ABSOLUTE AUTO 0.02 K/mm3 (0.00-0.23); BASOPHILS PERCENT AUTO 0 % (0-2); EOSINOPHILS PERCENT AUTO 0 % (0-6); Hematocrit 21.8 % (33.0-51.0); Hemoglobin 6.9 g/dL (11.5-16.0); IMMATURE GRAN ABSOLUTE AUTO 0.15 K/mm3 (0.00-0.10); IMMATURE GRAN PERCENT AUTO 1 % (0-1); LYMPHOCYTES ABSOLUTE AUTO 1.38 K/mm3 (0.84-5.20); LYMPHOCYTES PERCENT AUTO 10 % (21-46); MONOCYTES PERCENT AUTO 7 % (4-13); Mean Corpuscular HGB 27.6 pg (26.0-34.0); Mean Corpuscular HGB Conc 31.7 g/dL (31.5-36.5); Mean Corpuscular Volume 87 fL (80-100); Mean Platelet Volume 10.3 fL (9.1-12.4); NEUTROPHILS ABSOLUTE AUTO 12.02 K/mm3 (1.96-9.15); NEUTROPHILS PERCENT AUTO 83 % (41-73); NRBC ABSOLUTE 0.05 K/mm3 (0.00-0.02); NRBC Auto 0.3 /100 WBC (0.0-0.2); Platelet Count 192 K/mm3 (150-400); RDW Coefficient Variation 17.7 % (11.7-14.2); RDW Standard Deviation 53.5 fL (35.1-46.3); White Blood Cell Count 14.57 K/mm3 (4.00-11.30)
[2021-05-04 05:47] LABS: Albumin, Blood 1.9 g/dL (3.4-5.0); Anion Gap 4 mmol/L (6-16); Blood Urea Nitrogen 28 mg/dL (8-24); Bun/Creatinine Ratio 34.3 (12.0-20.0); CO2, Blood 30 mmol/L (21-32); Calcium, Blood 7.9 mg/dL (8.5-10.1); Chloride, Blood 108 mmol/L (98-108); Creatinine, Blood 0.82 mg/dL (0.40-1.00); Glomerular Filtration Rate >60 (60-); Glucose, Blood 75 mg/dL (70-99); Magnesium, Blood 1.8 mg/dL (1.6-2.4); Phosphorus, Blood 1.4 mg/dL (2.5-4.9); Potassium, Blood 3.1 mmol/L (3.5-5.5); Sodium, Blood 142 mmol/L (136-145)
--- NOTE | 2021-05-04 07:42 | NUR ---
SHIFT SUMMARY POD2 L HIP GAMMA NAIL, ALERT BUT CONFUSED, ORIENTED TO SELF AND TALKS ABOUT FAMILY AT TIMES, TOLERATING PO, VOIDING INCONTINENTLY, 2 SMALL BM'S THIS SHIFT, LOW HGB AND ORDERS TO RECEIVE 1 UNIT PRBC TODAY ONCE TYPE & SCREEN COMPLETE. NO ACUTE EVENTS THIS SHIFT. CALL LIGHT IN REACH, REPORT GIVEN TO DAY RN.
--- NOTE | 2021-05-04 13:00 | NUR ---
MODERATE AMOUNT OF SS DRAINAGE NOTED ON BED BY PT'S L ELBOW AREA, UPON ASSESSMENT A SMALL PIN POINT OPENING IS NOTED ABOVE THE BACK OF HER ELBOW, MEPILEX DRESSING APPLIED.
--- NOTE | 2021-05-04 17:00 | NUR ---
BLOOD TRANSFUSION PT RECEIVED 1 UNIT PRBC TODAY. PT TOLERATED WELL. LUNGS SOUND CLEAR. VITAL SIGNS STABLE. WILL CONTINUE TO MONITOR.
--- NOTE | 2021-05-04 17:02 | NUR ---
SHIFT SUMMARY POD 2 FOR LEFT DOV HIP. AQUACEL X [address] UPPER AQUACEL WAS REPLACED TODAY DUE TO SATURATION. DRESSINGS CURRENTLY C/D/I. PT CURRENTLY WEARING ATTENDS AND IS UNABLE TO CALL FOR ASSISTANCE. PT RECEVIED 1 UNIT PRBC TODAY AND TOLERATED WELL WITH VITAL SIGNS STABLE AND LUNG SOUNDS CLEAR. PT HAD SOME DRAINAGE ON [place] AROUND LEFT ELBOW. MEPILEX APPLIED TO IT AND [place] CHANGED. DR. SRINIVASAN INFORMED AND WILL HAVE ORTHO LOOK AT IT. PAIN TREATED PER EMAR. ICE APPLIED TO LEFT SHOULDER AND LEFT HIP TO HELP WITH PAIN WELL. LIDOCAINE PATCHES ON LEFT SHOULDER AND LEFT HIP. CALL LIGHT WITHIN REACH. WILL CONTINUE TO MONITOR.
[2021-05-05 06:34] LABS: BASOPHILS ABSOLUTE AUTO 0.02 K/mm3 (0.00-0.23); BASOPHILS PERCENT AUTO 0 % (0-2); EOSINOPHILS ABSOLUTE AUTO 0.02 K/mm3 (0.00-0.68); EOSINOPHILS PERCENT AUTO 0 % (0-6); Hemoglobin 9.2 g/dL (11.5-16.0); IMMATURE GRAN ABSOLUTE AUTO 0.28 K/mm3 (0.00-0.10); IMMATURE GRAN PERCENT AUTO 2 % (0-1); LYMPHOCYTES ABSOLUTE AUTO 1.47 K/mm3 (0.84-5.20); LYMPHOCYTES PERCENT AUTO 10 % (21-46); MONOCYTES ABSOLUTE AUTO 1.28 K/mm3 (0.16-1.47); MONOCYTES PERCENT AUTO 8 % (4-13); Mean Corpuscular HGB 28.2 pg (26.0-34.0); Mean Corpuscular HGB Conc 32.9 g/dL (31.5-36.5); Mean Corpuscular Volume 86 fL (80-100); Mean Platelet Volume 10.4 fL (9.1-12.4); NEUTROPHILS PERCENT AUTO 80 % (41-73); NRBC ABSOLUTE 0.09 K/mm3 (0.00-0.02); NRBC Auto 0.6 /100 WBC (0.0-0.2); Platelet Count 229 K/mm3 (150-400); RDW Coefficient Variation 17.7 % (11.7-14.2); RDW Standard Deviation 51.2 fL (35.1-46.3); Red Blood Cell Count 3.26 M/mm3 (3.80-5.20); White Blood Cell Count 15.37 K/mm3 (4.00-11.30)
[2021-05-05 06:59] LABS: Anion Gap 6 mmol/L (6-16); Blood Urea Nitrogen 21 mg/dL (8-24); Bun/Creatinine Ratio 29.2 (12.0-20.0); CO2, Blood 28 mmol/L (21-32); Calcium, Blood 7.6 mg/dL (8.5-10.1); Chloride, Blood 108 mmol/L (98-108); Creatinine, Blood 0.72 mg/dL (0.40-1.00); Glomerular Filtration Rate >60 (60-); Glucose, Blood 75 mg/dL (70-99); Phosphorus, Blood 1.4 mg/dL (2.5-4.9); Potassium, Blood 3.2 mmol/L (3.5-5.5); Sodium, Blood 142 mmol/L (136-145)
--- NOTE | 2021-05-05 07:46 | NUR ---
AAO X2, FOLLOWS ALL COMMANDS. ORIENTED TO ROOM, CALL SYSTEM, AND POC, VOICES UNDERSTANDING. STATES THAT SHE DOES GET CONFUSED SOMETIMES AND FORGETS WHAT SHE WAS TRYING TO DO. RESPIRATIONS EVEN AND UNLABORED ON RA. LUNG SOUNDS CLEAR BILATERALLY. ABDOMEN SOFT AND NONDISTENDED. BOWEL SOUNDS NOTED IN ALL QUADS. RIGHT ARM POWERGLIDE IS PATENT, BOTH LUMENS FLUSH WITH EASE, AND EXCELLENT BLOOD RETURN NOTED. LEFT ARM WITH EDEMA AND CONTUSIONS, ENTIRE ARM AND INTO BACK TO PURPLE AND PINK IN COLOR. LEFT HIP SX SITE WITH AQUACEL THAT IS PATENT AND SHADOWING NOTED. SCD'S TO BLE. DENIES FURTHER NEEDS OR WANTS AT THIS TIME. SAFETY MEASURES IN PLACE. WILL CONTINUE TO MONITOR AND GIVE HAND OFF TO ONCOMING SHIFT USING SBAR DURING BEDSIDE REPORT USING SBAR.
--- NOTE | 2021-05-05 17:42 | NUR ---
SHIFT SUMMARY PT A&O X4 W/ BOUTS OF CONFUSION T/O SHIFT. PT HAS BEEN IN PLEASENT MOOD, THOUGH LAUREN OUT IN PAIN WHEN MOVED. PT RESTED IN BED AND ENJOYED WATCHING T.V. VSS. TOLERATING ORAL INTAKE WELL. CALL LIGHT W/IN REACH, BED LOWEST POSITION, AND ALARM ON. WORKED W/ PT & OT.
--- NOTE | 2021-05-05 20:13 | NUR ---
pt high risk for readmission and failure to thrive. Very fearful since her fall and increased pain. Will reach out to family.
--- NOTE | 2021-05-06 03:09 | NUR ---
SHIFT SUMMARY PT AOX3. FORGETFUL AT TIMES. SHE IS VERY PLEASANT. PT REPORTS PAIN. PAIN MANAGED WITH TYLENOL AND NORCO. PT SLEPT GOOD LAST NIGHT. L SHOULDER TO UPPER BACK AND LOW LEFT SIDE FLANK APPEARS TO BE BRUISED. CAP REFILL WNL. PULSES ARE STRONG. PT DENIES ANY NUMBNESS AND TINGLING SENSATION. LEFT UPPER AQUACEL DRESSING ON LEFT HIP APPEARS TO BE SATURATED AT THE BEGINNING OF SHIFT, DRESSING WAS CHANGED. AT 2AM, I RECHECKED THE DRESSING. IT HAS A MEDIUM SIZE, SS DRAINAGE. WILL CONTINUE TO MONITOR. SUTURES APPEARS INTACT AND NO BRUISING ON THE SITE. PT RECEIVED HER CEFAZOLIN X2 T/O SHIFT. CALL LIGHT WITHIN REACH. BED IN LOW POSITION. WILL PROVIDE REPORT TO ONCOMING NURSE.
[2021-05-06 06:03] LABS: BASOPHILS ABSOLUTE AUTO 0.05 K/mm3 (0.00-0.23); BASOPHILS PERCENT AUTO 0 % (0-2); EOSINOPHILS ABSOLUTE AUTO 0.01 K/mm3 (0.00-0.68); EOSINOPHILS PERCENT AUTO 0 % (0-6); Hematocrit 35.2 % (33.0-51.0); Hemoglobin 11.5 g/dL (11.5-16.0); IMMATURE GRAN ABSOLUTE AUTO 0.33 K/mm3 (0.00-0.10); IMMATURE GRAN PERCENT AUTO 2 % (0-1); LYMPHOCYTES ABSOLUTE AUTO 1.59 K/mm3 (0.84-5.20); LYMPHOCYTES PERCENT AUTO 9 % (21-46); MONOCYTES ABSOLUTE AUTO 0.85 K/mm3 (0.16-1.47); MONOCYTES PERCENT AUTO 5 % (4-13); Mean Corpuscular HGB 28.5 pg (26.0-34.0); Mean Corpuscular HGB Conc 32.7 g/dL (31.5-36.5); Mean Corpuscular Volume 87 fL (80-100); Mean Platelet Volume 10.2 fL (9.1-12.4); NEUTROPHILS PERCENT AUTO 85 % (41-73); NRBC ABSOLUTE 0.05 K/mm3 (0.00-0.02); NRBC Auto 0.3 /100 WBC (0.0-0.2); Platelet Count 236 K/mm3 (150-400); RDW Coefficient Variation 18.7 % (11.7-14.2); RDW Standard Deviation 53.1 fL (35.1-46.3); Red Blood Cell Count 4.04 M/mm3 (3.80-5.20); White Blood Cell Count 18.53 K/mm3 (4.00-11.30)
[2021-05-06 06:27] LABS: Albumin, Blood 2.2 g/dL (3.4-5.0); Anion Gap 6 mmol/L (6-16); Blood Urea Nitrogen 14 mg/dL (8-24); Bun/Creatinine Ratio 22.2 (12.0-20.0); CO2, Blood 27 mmol/L (21-32); Calcium, Blood 7.5 mg/dL (8.5-10.1); Chloride, Blood 109 mmol/L (98-108); Creatinine, Blood 0.63 mg/dL (0.40-1.00); Glomerular Filtration Rate >60 (60-); Glucose, Blood 77 mg/dL (70-99); Phosphorus, Blood 2.1 mg/dL (2.5-4.9); Potassium, Blood 3.3 mmol/L (3.5-5.5); Sodium, Blood 142 mmol/L (136-145)
--- NOTE | 2021-05-06 15:41 | NUR ---
Supportive visit this afternoon. Pt resting in bed upon arrival. Pt reports current pain regimen is managing her pain. Pt appears comfortable with no S/S of distress at this time. Encouraged Pt to use her call light and request pain medication before pain is out of control. Pt reports no concerns at this time and states she is feeling better. Palliative Care will remain available.
--- NOTE | 2021-05-06 18:38 | NUR ---
SHIFT SUMMARY PT IS A/O X3 TODAY. PAIN IN L LEG AND L ARM MANAGED WITH NORCO PER ORDER. SLING TO L ARM IN PLACE. ATTENS IN PLACE AND CHANGED PRN FOR INCONTNENCE. PT WORKED WITH THERAPY TODAY AND SAT IN CHAIR FOR A FEW HOURS. HAS HAD LOW PO INTAKE, LOW APPETITE. NO ACUTE CHANGES THIS SHIFT.
--- NOTE | 2021-05-07 03:53 | NUR ---
SHIFT SUMMARY NO ACUTE CHANGES OVERNIGHT. PT SLEPT GOOD OVERNIGHT. SHE IS AOX3. ANSWERS QUESTIONS APPROPRIATELY. REMAIN TO HAVE PAIN ON L LEG AND L SHOULDER. PAIN MANAGED WITH TYLENOL AND NORCO. CHANGED AQUACEL DRESSING ON L HIP (UPPPER REGION) ONCE LAST NIGHT BECAUSE IT WAS SATURATED WITH SS DRAINAGE. STRONG PULSES ON LEFT RADIAL. L SHOULDER/ARM STILL BRUISED AND SWOLLEN WITH SLING IN PLACED. PT DENIES ANY NUMBNESS AND TINGLING SENSATION. ABX IV WAS GIVEN X1. CALL LIGHT WITHIN REACH. WILL PROVIDE REPORT TO ONCOMING NURSE.
[2021-05-07 04:45] LABS: BASOPHILS ABSOLUTE AUTO 0.05 K/mm3 (0.00-0.23); BASOPHILS PERCENT AUTO 0 % (0-2); EOSINOPHILS ABSOLUTE AUTO 0.01 K/mm3 (0.00-0.68); EOSINOPHILS PERCENT AUTO 0 % (0-6); Hematocrit 34.5 % (33.0-51.0); Hemoglobin 11.2 g/dL (11.5-16.0); IMMATURE GRAN ABSOLUTE AUTO 0.22 K/mm3 (0.00-0.10); IMMATURE GRAN PERCENT AUTO 1 % (0-1); LYMPHOCYTES ABSOLUTE AUTO 1.71 K/mm3 (0.84-5.20); LYMPHOCYTES PERCENT AUTO 10 % (21-46); MONOCYTES ABSOLUTE AUTO 0.85 K/mm3 (0.16-1.47); MONOCYTES PERCENT AUTO 5 % (4-13); Mean Corpuscular HGB 27.9 pg (26.0-34.0); Mean Corpuscular HGB Conc 32.5 g/dL (31.5-36.5); Mean Corpuscular Volume 86 fL (80-100); Mean Platelet Volume 9.8 fL (9.1-12.4); NEUTROPHILS ABSOLUTE AUTO 14.39 K/mm3 (1.96-9.15); NEUTROPHILS PERCENT AUTO 84 % (41-73); NRBC ABSOLUTE 0.02 K/mm3 (0.00-0.02); NRBC Auto 0.1 /100 WBC (0.0-0.2); Platelet Count 269 K/mm3 (150-400); RDW Coefficient Variation 19.6 % (11.7-14.2); RDW Standard Deviation 53.6 fL (35.1-46.3); Red Blood Cell Count 4.01 M/mm3 (3.80-5.20); White Blood Cell Count 17.23 K/mm3 (4.00-11.30)
[2021-05-07 05:03] LABS: Albumin, Blood 2.1 g/dL (3.4-5.0); Anion Gap 7 mmol/L (6-16); Blood Urea Nitrogen 12 mg/dL (8-24); Bun/Creatinine Ratio 18.2 (12.0-20.0); CO2, Blood 24 mmol/L (21-32); Calcium, Blood 7.8 mg/dL (8.5-10.1); Chloride, Blood 109 mmol/L (98-108); Creatinine, Blood 0.66 mg/dL (0.40-1.00); Glomerular Filtration Rate >60 (60-); Glucose, Blood 81 mg/dL (70-99); Magnesium, Blood 1.6 mg/dL (1.6-2.4); Potassium, Blood 3.3 mmol/L (3.5-5.5); Sodium, Blood 140 mmol/L (136-145)
--- NOTE | 2021-05-07 17:48 | NUR ---
SHIFT SUMMARY PT HAS BEEN A/O X3 TODAY. FORGETFUL AT TIMES. PAIN MANAGED WITH NORCO PRN. PT WORKED WITH THERAPY TODAY. TOLERATING PO INTAKE AND VOIDING. ATTENS IN PLACE FOR INCONTINENCE. DRESSINGS ON L HIP HAVE BEEN CHANGED X2 TODAY. PROVIDER NOTIFIED. SLING IN PLACE TO L ARM.
[2021-05-08 04:45] LABS: BASOPHILS ABSOLUTE AUTO 0.04 K/mm3 (0.00-0.23); BASOPHILS PERCENT AUTO 0 % (0-2); EOSINOPHILS PERCENT AUTO 0 % (0-6); Hematocrit 33.9 % (33.0-51.0); Hemoglobin 11.1 g/dL (11.5-16.0); IMMATURE GRAN ABSOLUTE AUTO 0.21 K/mm3 (0.00-0.10); IMMATURE GRAN PERCENT AUTO 1 % (0-1); LYMPHOCYTES ABSOLUTE AUTO 1.57 K/mm3 (0.84-5.20); LYMPHOCYTES PERCENT AUTO 7 % (21-46); MONOCYTES ABSOLUTE AUTO 0.97 K/mm3 (0.16-1.47); MONOCYTES PERCENT AUTO 5 % (4-13); Mean Corpuscular HGB 28.5 pg (26.0-34.0); Mean Corpuscular HGB Conc 32.7 g/dL (31.5-36.5); Mean Corpuscular Volume 87 fL (80-100); Mean Platelet Volume 10.3 fL (9.1-12.4); NEUTROPHILS ABSOLUTE AUTO 18.29 K/mm3 (1.96-9.15); NEUTROPHILS PERCENT AUTO 87 % (41-73); NRBC ABSOLUTE 0.02 K/mm3 (0.00-0.02); NRBC Auto 0.1 /100 WBC (0.0-0.2); Platelet Count 318 K/mm3 (150-400); RDW Coefficient Variation 20.4 % (11.7-14.2); RDW Standard Deviation 57.5 fL (35.1-46.3); Red Blood Cell Count 3.89 M/mm3 (3.80-5.20); White Blood Cell Count 21.08 K/mm3 (4.00-11.30)
[2021-05-08 05:12] LABS: Albumin, Blood 2.2 g/dL (3.4-5.0); Anion Gap 5 mmol/L (6-16); Blood Urea Nitrogen 13 mg/dL (8-24); Bun/Creatinine Ratio 20.9 (12.0-20.0); CO2, Blood 27 mmol/L (21-32); Calcium, Blood 7.7 mg/dL (8.5-10.1); Chloride, Blood 109 mmol/L (98-108); Creatinine, Blood 0.62 mg/dL (0.40-1.00); Glomerular Filtration Rate >60 (60-); Glucose, Blood 78 mg/dL (70-99); Magnesium, Blood 1.6 mg/dL (1.6-2.4); Phosphorus, Blood 2.4 mg/dL (2.5-4.9); Potassium, Blood 3.7 mmol/L (3.5-5.5); Sodium, Blood 141 mmol/L (136-145)
--- NOTE | 2021-05-08 09:09 | NUR ---
DR. VARELA ASSESSED PT'S L HIP WOUND THIS AM, L HIP WOUNDS CLEANSED WITH HYDROGEN PEROXIDE AND, COVERED WITH 4X4 GAUZE AND MEFIX TAPE, SKIN PROTECTANT APPLIED TO SKIN WHERE ADHESIVE TAP IS IN CONTACT, L UPPER HIP INCISION APPEARS CLEAN, NO REDNESS NOTED, CONT. TO DRAIN SEROUS DRAINAGE.
--- NOTE | 2021-05-08 14:19 | NUR ---
REPOSITIONED IN BED, UP TO CHAIR THIS AM, TOLERATED FAIRLY WELL.
--- NOTE | 2021-05-09 06:05 | NUR ---
SHIFT SUMMARY: PT S/P L HIP REPAIR. AQUACEL DRESSING C/D/I. SECOND DRESSING CHANGED ONCE THIS SHIFT WITH ABD PAD AND PRESSURE TAPE. PAIN MANAGED WITH NORCO PER EMAR. PT VOIDING IN ATTENDS. 2 ASSIST FOR REPOSITONING. PT APPEARS ANXIOUS AT TIMES. LOW GRADE TEMPS THIS SHIFT WITH TMAX 99.6. AWAITING DC TO SNF.
[2021-05-09 08:59] LABS: BASOPHILS ABSOLUTE AUTO 0.07 K/mm3 (0.00-0.23); BASOPHILS PERCENT AUTO 0 % (0-2); EOSINOPHILS PERCENT AUTO 0 % (0-6); Hematocrit 34.9 % (33.0-51.0); Hemoglobin 10.8 g/dL (11.5-16.0); IMMATURE GRAN ABSOLUTE AUTO 0.24 K/mm3 (0.00-0.10); IMMATURE GRAN PERCENT AUTO 1 % (0-1); LYMPHOCYTES ABSOLUTE AUTO 1.32 K/mm3 (0.84-5.20); LYMPHOCYTES PERCENT AUTO 5 % (21-46); MONOCYTES ABSOLUTE AUTO 0.99 K/mm3 (0.16-1.47); MONOCYTES PERCENT AUTO 4 % (4-13); Mean Corpuscular HGB Conc 30.9 g/dL (31.5-36.5); Mean Corpuscular Volume 90 fL (80-100); Mean Platelet Volume 10.4 fL (9.1-12.4); NEUTROPHILS PERCENT AUTO 89 % (41-73); Platelet Count 354 K/mm3 (150-400); RDW Coefficient Variation 21.2 % (11.7-14.2); RDW Standard Deviation 61.9 fL (35.1-46.3); Red Blood Cell Count 3.86 M/mm3 (3.80-5.20); White Blood Cell Count 24.52 K/mm3 (4.00-11.30)
[2021-05-09 09:18] LABS: Albumin, Blood 2.2 g/dL (3.4-5.0); Anion Gap 6 mmol/L (6-16); Blood Urea Nitrogen 11 mg/dL (8-24); Bun/Creatinine Ratio 17.4 (12.0-20.0); CO2, Blood 23 mmol/L (21-32); Calcium, Blood 7.4 mg/dL (8.5-10.1); Chloride, Blood 109 mmol/L (98-108); Creatinine, Blood 0.63 mg/dL (0.40-1.00); Glomerular Filtration Rate >60 (60-); Glucose, Blood 89 mg/dL (70-99); Magnesium, Blood 1.3 mg/dL (1.6-2.4); Sodium, Blood 138 mmol/L (136-145)
--- NOTE | 2021-05-09 15:25 | NUR ---
DR. VARELA IN TO SEE PT, EXAMINED PT'S L HIP WOUNDS AND L ELBOW, WOUNDS CLEANED AND DRESSED, ABD PAD APPLIED TO L ELBOW AND THEO WRAP, L HIP DRAINING WOUND CLEANED AND COVERED WTIH ABD PAD AND SECURED UNDER TAPE, AVOID USING TAPE PER DR. VARELA DUE PT'S SKIN BECOMING IRRITATED FROM TAPE.
--- NOTE | 2021-05-09 17:28 | NUR ---
SUMMARY L HIP AND L ARM DSG C/D/I, AFEBRILE T/O SHIFT, STOOL FOR CDIFF ORDERED PER DR. SRINIVASAN, PT ON PO AND IV ABX, NO ACUTE CHANGES THIS SHIFT.
[2021-05-10 04:15] LABS: Hematocrit 31.3 % (33.0-51.0); Hemoglobin 10.2 g/dL (11.5-16.0)
[2021-05-10 04:32] LABS: Albumin, Blood 2.2 g/dL (3.4-5.0); Anion Gap 6 mmol/L (6-16); Blood Urea Nitrogen 12 mg/dL (8-24); Bun/Creatinine Ratio 17.4 (12.0-20.0); CO2, Blood 24 mmol/L (21-32); Calcium, Blood 7.8 mg/dL (8.5-10.1); Chloride, Blood 110 mmol/L (98-108); Creatinine, Blood 0.69 mg/dL (0.40-1.00); Glomerular Filtration Rate >60 (60-); Glucose, Blood 86 mg/dL (70-99); Magnesium, Blood 1.5 mg/dL (1.6-2.4); Phosphorus, Blood 2.4 mg/dL (2.5-4.9); Potassium, Blood 3.6 mmol/L (3.5-5.5); Sodium, Blood 140 mmol/L (136-145)
--- NOTE | 2021-05-10 06:03 | NUR ---
PT VSS T/O NIGHT; AFEBRILE. ABD PAD TO LEFT UPPER HIP REPLACED X1, AQUACEL W/SMALL AMT SS DRNG. ANTONINAE ELEVATED PT BO. PT PAINFUL W/MOVEMENT, REP MINIMAL PAIN AT REST; MED PER EMAR PRN. PO FLUIDS OFFERRED W/ROUNDING, ATTENDS CHANGED X3. PT ASSISTED W/REPOSITIONING IN BED, DOES SHIFT HERSELF ALSO. PT CONFUSED, IS ANXIOUS AT TIMES, SUPPORT PRN.
--- NOTE | 2021-05-10 11:55 | NUR ---
CLEAN CATCH UA OBTAINED, PT REF FEM CATH FOR SPECIMEN.
[2021-05-10 12:01] LABS: Source, Urine Clean Catch
[2021-05-10 12:08] LABS: Bilirubin, Urine Neg (Neg); Blood, Urine 2+ (Neg); Glucose Qualitative, Urine Neg (Neg); Ketones, Urine Neg (Neg); Leukocyte Esterase, Urine 1+ (Neg); Nitrite, Urine Neg (Neg); Protein, Urine 1+ (Neg); Specific Gravity, Urine 1.005 (1.003-1.022); Urobilinogen, Urine NORM (Normal)
[2021-05-10 12:19] LABS: Appearance, Urine Hazy (Clear); Color, Urine Yellow (P-Yellow)
[2021-05-10 12:20] LABS: Bacteria Rare /hpf; Squamous Epithelial Cells Few /hpf (Few)
[2021-05-10 17:08] LABS: BASOPHILS ABSOLUTE AUTO 0.04 K/mm3 (0.00-0.23); BASOPHILS PERCENT AUTO 0 % (0-2); EOSINOPHILS PERCENT AUTO 0 % (0-6); Hematocrit 30.1 % (33.0-51.0); Hemoglobin 9.8 g/dL (11.5-16.0); IMMATURE GRAN ABSOLUTE AUTO 0.15 K/mm3 (0.00-0.10); IMMATURE GRAN PERCENT AUTO 1 % (0-1); LYMPHOCYTES ABSOLUTE AUTO 0.69 K/mm3 (0.84-5.20); LYMPHOCYTES PERCENT AUTO 3 % (21-46); MONOCYTES ABSOLUTE AUTO 0.77 K/mm3 (0.16-1.47); MONOCYTES PERCENT AUTO 4 % (4-13); Mean Corpuscular HGB 28.6 pg (26.0-34.0); Mean Corpuscular HGB Conc 32.6 g/dL (31.5-36.5); Mean Corpuscular Volume 88 fL (80-100); Mean Platelet Volume 10.4 fL (9.1-12.4); NEUTROPHILS ABSOLUTE AUTO 20.36 K/mm3 (1.96-9.15); NEUTROPHILS PERCENT AUTO 93 % (41-73); Platelet Count 403 K/mm3 (150-400); RDW Standard Deviation 68.5 fL (35.1-46.3); Red Blood Cell Count 3.43 M/mm3 (3.80-5.20); White Blood Cell Count 22.01 K/mm3 (4.00-11.30)
--- NOTE | 2021-05-10 18:05 | NUR ---
Aleida has been alert and cooperative today. Tearful and anxious early in the shift due to pain level. Alternating norco and tylenol with good relief. Top left hip incision with surendra intact continues to drain serous fluid. Abd in place. US completed to left arm, bruising to left arm/flank area unchanged. 2 view chest xray will be completed this evening per pharmacy picking technician. Poor appetite. Transfers with 2 person assist. Anxious with transfers. Will continue to monitor and report to blood bank technician RN.
--- NOTE | 2021-05-10 18:51 | NUR ---
Pt denies pain unless moved. Attends changed. Harriet area reddened. Allevyn to coccyx area, barrier cream to harriet area. Gown changed. ABD applied to L upper hip incision. Aquacell dressing loose, removed old dressing, new aquacell dressing applied. Parital linen change, repositioned in bed.
[2021-05-11 04:00] LABS: BASOPHILS ABSOLUTE AUTO 0.05 K/mm3 (0.00-0.23); BASOPHILS PERCENT AUTO 0 % (0-2); EOSINOPHILS PERCENT AUTO 0 % (0-6); Hematocrit 30.6 % (33.0-51.0); Hemoglobin 10.1 g/dL (11.5-16.0); IMMATURE GRAN ABSOLUTE AUTO 0.16 K/mm3 (0.00-0.10); IMMATURE GRAN PERCENT AUTO 1 % (0-1); LYMPHOCYTES ABSOLUTE AUTO 1.38 K/mm3 (0.84-5.20); LYMPHOCYTES PERCENT AUTO 6 % (21-46); MONOCYTES ABSOLUTE AUTO 1.25 K/mm3 (0.16-1.47); MONOCYTES PERCENT AUTO 5 % (4-13); Mean Corpuscular HGB 28.9 pg (26.0-34.0); Mean Corpuscular Volume 87 fL (80-100); Mean Platelet Volume 10.2 fL (9.1-12.4); NEUTROPHILS ABSOLUTE AUTO 21.73 K/mm3 (1.96-9.15); NEUTROPHILS PERCENT AUTO 88 % (41-73); Platelet Count 434 K/mm3 (150-400); RDW Standard Deviation 70.9 fL (35.1-46.3); White Blood Cell Count 24.57 K/mm3 (4.00-11.30)
--- NOTE | 2021-05-11 04:17 | NUR ---
SHIFT SUMMARY: NO SIGNIFICANT CHANGES THIS SHIFT. PT PAINFUL WITH MOVEMENT AND BECOMES TEARFUL/ANXIOUS. BEING MEDICATED WITH NORCO PER EMAR. PT APPEARS TO BE RESTING COMFORTABLY WHEN ATTENDS ARE NOT BEING CHANGED. SWELLING TO LEFT ARM APPEARS TO BE IMPROVING. ARM ELEVATED ON PILLOW. DRESSING TO LEFT HIP CHANGED THIS MORNING WITH ABD PAD AND PRESSURE TAPE. PT TOLERATING MEDS WHOLE IN APPLESAUCE.
[2021-05-11 04:30] LABS: Albumin, Blood 2.2 g/dL (3.4-5.0); Anion Gap 6 mmol/L (6-16); Blood Urea Nitrogen 12 mg/dL (8-24); Bun/Creatinine Ratio 16.7 (12.0-20.0); CO2, Blood 23 mmol/L (21-32); Calcium, Blood 7.8 mg/dL (8.5-10.1); Chloride, Blood 110 mmol/L (98-108); Creatinine, Blood 0.72 mg/dL (0.40-1.00); Glomerular Filtration Rate >60 (60-); Glucose, Blood 74 mg/dL (70-99); Magnesium, Blood 1.4 mg/dL (1.6-2.4); Phosphorus, Blood 3.2 mg/dL (2.5-4.9); Potassium, Blood 3.4 mmol/L (3.5-5.5); Sodium, Blood 139 mmol/L (136-145)
--- NOTE | 2021-05-11 17:08 | NUR ---
SHIFT SUMMARY PT HAS BEEN A&O T/O SHIFT WITH EPISODES OF BEING PLEASENTLY CONFUSED, REORIENTS EASILY. PT HAS BEEN EMOTIONAL AT TIMES T/O SHIFT AND HAS FREQUENTLY COMPLAINED OF PAIN IN L SHOULDER, MEDICATED PER EMAR, USED DISTRATION AND REPOSITION. TOLERATING ORAL INTAKE. VOIDING WELL. PPP. VSS.
[2021-05-12 04:23] LABS: BASOPHILS ABSOLUTE AUTO 0.07 K/mm3 (0.00-0.23); BASOPHILS PERCENT AUTO 0 % (0-2); EOSINOPHILS ABSOLUTE AUTO 0.01 K/mm3 (0.00-0.68); EOSINOPHILS PERCENT AUTO 0 % (0-6); Hematocrit 31.9 % (33.0-51.0); Hemoglobin 10.3 g/dL (11.5-16.0); IMMATURE GRAN PERCENT AUTO 1 % (0-1); LYMPHOCYTES ABSOLUTE AUTO 1.43 K/mm3 (0.84-5.20); LYMPHOCYTES PERCENT AUTO 5 % (21-46); MONOCYTES ABSOLUTE AUTO 1.34 K/mm3 (0.16-1.47); MONOCYTES PERCENT AUTO 5 % (4-13); Mean Corpuscular HGB 28.7 pg (26.0-34.0); Mean Corpuscular HGB Conc 32.3 g/dL (31.5-36.5); Mean Corpuscular Volume 89 fL (80-100); Mean Platelet Volume 10.1 fL (9.1-12.4); NEUTROPHILS ABSOLUTE AUTO 23.37 K/mm3 (1.96-9.15); NEUTROPHILS PERCENT AUTO 88 % (41-73); Platelet Count 471 K/mm3 (150-400); RDW Standard Deviation 73.7 fL (35.1-46.3); Red Blood Cell Count 3.59 M/mm3 (3.80-5.20); White Blood Cell Count 26.42 K/mm3 (4.00-11.30)
[2021-05-12 04:59] LABS: Alanine Aminotransfer (ALT/SGP 11 U/L (12-78); Albumin, Blood 2.1 g/dL (3.4-5.0); Albumin/Globulin Ratio 0.8 (0.8-1.8); Alk Phos 150 U/L (50-136); Anion Gap 5 mmol/L (6-16); Aspartate Aminotrans (AST/SGOT 23 U/L (12-37); Blood Urea Nitrogen 15 mg/dL (8-24); Bun/Creatinine Ratio 18.2 (12.0-20.0); CO2, Blood 22 mmol/L (21-32); Calcium, Blood 7.5 mg/dL (8.5-10.1); Chloride, Blood 112 mmol/L (98-108); Creatinine, Blood 0.82 mg/dL (0.40-1.00); Ferritin, Serum 340 ng/mL (8-252); Globulin, Blood 2.6 g/dL (2.2-4.0); Glomerular Filtration Rate >60 (60-); Glucose, Blood 73 mg/dL (70-99); Iron Serum 22 ug/dL (50-170); Magnesium, Blood 2.1 mg/dL (1.6-2.4); Percent Saturation 7.1 % (15.0-50.0); Phosphorus, Blood 2.9 mg/dL (2.5-4.9); Potassium, Blood 4.1 mmol/L (3.5-5.5); Sodium, Blood 139 mmol/L (136-145); Total Iron Binding Capacity 308 ug/dL (250-450); Total Protein, Blood 4.7 g/dL (6.4-8.2)
--- NOTE | 2021-05-12 17:25 | NUR ---
SHIFT SUMMARY PT A&O T/O SHIFT. PT HAS BEEN RESTING IN BED T/O SHIFT. PT HAS BEEN FOUND CRYING IN PAIN SEVERAL TIMES T/O SHIFT, ADDITONAL PAIN COVERAGE WAS ORDERED. MEPILEX PAD WAS APPLIED TO ELBOW DUE TO MODERATE AMOUNT OF SS FLUID LEAKAGE. PT VSS, PPP. CALL LIGHT W/IN REACH. PT TOLERATING ORAL INTAKE.
[2021-05-13 07:56] LABS: Hematocrit 32.9 % (33.0-51.0); Hemoglobin 10.5 g/dL (11.5-16.0); Mean Corpuscular HGB 28.8 pg (26.0-34.0); Mean Corpuscular HGB Conc 31.9 g/dL (31.5-36.5); Mean Corpuscular Volume 90 fL (80-100); Mean Platelet Volume 9.6 fL (9.1-12.4); Platelet Count 484 K/mm3 (150-400); RDW Coefficient Variation 23.2 % (11.7-14.2); RDW Standard Deviation 76.7 fL (35.1-46.3); Red Blood Cell Count 3.64 M/mm3 (3.80-5.20); White Blood Cell Count 26.39 K/mm3 (4.00-11.30)
[2021-05-13 08:24] LABS: Magnesium, Blood 1.8 mg/dL (1.6-2.4)
[2021-05-13 08:25] LABS: Albumin, Blood 2.2 g/dL (3.4-5.0); Anion Gap 6 mmol/L (6-16); Blood Urea Nitrogen 18 mg/dL (8-24); Bun/Creatinine Ratio 19.8 (12.0-20.0); CO2, Blood 22 mmol/L (21-32); Calcium, Blood 7.7 mg/dL (8.5-10.1); Chloride, Blood 113 mmol/L (98-108); Creatinine, Blood 0.91 mg/dL (0.40-1.00); Glomerular Filtration Rate 60 (60-); Glucose, Blood 95 mg/dL (70-99); Phosphorus, Blood 2.8 mg/dL (2.5-4.9); Potassium, Blood 3.7 mmol/L (3.5-5.5); Sodium, Blood 141 mmol/L (136-145)
--- NOTE | 2021-05-13 16:02 | NUR ---
PT REFUSING TO ALLOW COVID SWAB PLACED MSG OUT TO DR SANCHEZ TO NOTIFY.
[2021-05-13 17:37] LABS: SARS-Cov-2 (COVID-19) PCR, MMC NEGATIVE (NEGATIVE)
--- NOTE | 2021-05-13 18:51 | NUR ---
SUMMARY PT REPORTED DID NOT FEEL WELL T/O SHIFT. REFUSED TO GET UP W/THERAPY. ABX INFUSED PER ORDERS. MEDICATED PER ORDERS FOR PAIN. NEGATIVE COVID SWAB THIS SHIFT. CALL LIGHT IN REACH.
[2021-05-14 04:30] LABS: Hematocrit 33.5 % (33.0-51.0); Hemoglobin 10.7 g/dL (11.5-16.0); Mean Corpuscular HGB 29.2 pg (26.0-34.0); Mean Corpuscular HGB Conc 31.9 g/dL (31.5-36.5); Mean Corpuscular Volume 91 fL (80-100); Mean Platelet Volume 9.6 fL (9.1-12.4); Platelet Count 449 K/mm3 (150-400); RDW Coefficient Variation 23.5 % (11.7-14.2); RDW Standard Deviation 77.3 fL (35.1-46.3); Red Blood Cell Count 3.67 M/mm3 (3.80-5.20); White Blood Cell Count 25.49 K/mm3 (4.00-11.30)
[2021-05-14 04:51] LABS: Albumin, Blood 2.3 g/dL (3.4-5.0); Anion Gap 5 mmol/L (6-16); Blood Urea Nitrogen 21 mg/dL (8-24); Bun/Creatinine Ratio 26.1 (12.0-20.0); CO2, Blood 22 mmol/L (21-32); Calcium, Blood 7.6 mg/dL (8.5-10.1); Chloride, Blood 113 mmol/L (98-108); Glomerular Filtration Rate >60 (60-); Glucose, Blood 70 mg/dL (70-99); Magnesium, Blood 1.7 mg/dL (1.6-2.4); Phosphorus, Blood 2.6 mg/dL (2.5-4.9); Potassium, Blood 3.3 mmol/L (3.5-5.5); Sodium, Blood 140 mmol/L (136-145)
[2021-05-14 14:55] LABS: Vancomycin, Trough 7.9 ug/mL (5.0-10.0)
--- NOTE | 2021-05-14 15:54 | NUR ---
Introduction: Pt presented makin noises with door open. I heard noise and knocked to offer a visit. Assessment: 75 y/o female pt presented sitting up in chair next to bed. Pt offered word salad and then expressed she was having pain. Pt exclaimed,"Tell the nurse I need to go to the bathroom." Intervention: Attempted to cultivate a relationship of care and support. Attempted to explore spiritual, emotional, and relational resources and needs. Retrieved the nurse to provide support at pt's request. Outcome: pt able to express herself. Follow up: Follow up for emotional and spiritual support as needed or requested.
--- NOTE | 2021-05-14 17:54 | NUR ---
PT CONFUSED THROUGHOUT SHIFT, STATES NEEDS TO GET OOB AND GET TO HER CLOSET AND THEN TO BED. PT ANGRY WJEN STAFF ATTEMPTS TO REORIENT. PT TEARFUL AT TIMES. PT REPORTS PAIN IS TOLERABLE AFTER PO MEDS. TWO PERSON TRANSFER FROM BED TO CHAIR
[2021-05-15 04:46] LABS: Hematocrit 34.4 % (33.0-51.0); Hemoglobin 10.7 g/dL (11.5-16.0)
[2021-05-15 05:07] LABS: Albumin, Blood 2.4 g/dL (3.4-5.0); Anion Gap 5 mmol/L (6-16); Blood Urea Nitrogen 25 mg/dL (8-24); Bun/Creatinine Ratio 34.8 (12.0-20.0); CO2, Blood 23 mmol/L (21-32); Calcium, Blood 8.2 mg/dL (8.5-10.1); Chloride, Blood 113 mmol/L (98-108); Creatinine, Blood 0.72 mg/dL (0.40-1.00); Glomerular Filtration Rate >60 (60-); Glucose, Blood 72 mg/dL (70-99); Magnesium, Blood 1.6 mg/dL (1.6-2.4); Potassium, Blood 3.9 mmol/L (3.5-5.5); Sodium, Blood 141 mmol/L (136-145)
[2021-05-15 14:51] LABS: SARS-Cov-2 (COVID-19) PCR, MMC NEGATIVE (NEGATIVE)
--- NOTE | 2021-05-15 18:37 | NUR ---
SHIFT SUMMARY PT PO FOR R HIP REPAIR AND CURRENTLY BEING TREATED FOR PNEUMONIA WITH ORAL BACTRIM. PT CURRENTLY REPORTS NO PAIN. NO IV ACCESS. TRANSFERING WITH STAND BY ASSIST TO BEDSIDE COMMODE. PT A/O X2 TODAY AND COOPERATING WITH CARE. PLAN IS TO SEND PT TO SNF ONCE BED AVAILABLE AT [facility].
[2021-05-16 04:31] LABS: Hematocrit 33.9 % (33.0-51.0); Hemoglobin 10.9 g/dL (11.5-16.0); Mean Corpuscular HGB 29.5 pg (26.0-34.0); Mean Corpuscular HGB Conc 32.2 g/dL (31.5-36.5); Mean Corpuscular Volume 92 fL (80-100); Mean Platelet Volume 9.9 fL (9.1-12.4); Platelet Count 479 K/mm3 (150-400); RDW Coefficient Variation 24.1 % (11.7-14.2); RDW Standard Deviation 78.7 fL (35.1-46.3); White Blood Cell Count 22.14 K/mm3 (4.00-11.30)
[2021-05-16 04:55] LABS: Albumin, Blood 2.4 g/dL (3.4-5.0); Anion Gap 5 mmol/L (6-16); Blood Urea Nitrogen 27 mg/dL (8-24); Bun/Creatinine Ratio 35.2 (12.0-20.0); CO2, Blood 23 mmol/L (21-32); Calcium, Blood 8.2 mg/dL (8.5-10.1); Chloride, Blood 114 mmol/L (98-108); Creatinine, Blood 0.77 mg/dL (0.40-1.00); Glomerular Filtration Rate >60 (60-); Glucose, Blood 70 mg/dL (70-99); Magnesium, Blood 1.6 mg/dL (1.6-2.4); Phosphorus, Blood 3.3 mg/dL (2.5-4.9); Potassium, Blood 3.8 mmol/L (3.5-5.5); Sodium, Blood 142 mmol/L (136-145)
--- NOTE | 2021-05-16 11:00 | NUR ---
MED REC EDIT PRINTED AND FAXED TO [facility]
--- NOTE | 2021-05-16 16:59 | NUR ---
SHIFT SUMMARY PT RESTING MOST OF THE DAY. SLIGHTLY CONFUSED TODAY AND REFUSED SOME MEDICATIONS. PAIN BEING TREATED PER EMAR. PLAN IS STILL FOR DISCHARGE TO SNF, BUT AFTER SPEAKING WITH TIAGO (FROM [facility]) THIS MORNING, SHE STATED THAT SHE WOULD CALL BACK WITHIN A FEW HOURS AND WE NEVER HEARD BACK. WE TRIED MULTIPLE TIMES TO REACH HER THIS AFTERNOON WITH NO CALL BACK. PT HAS BEEN UP IN THE CHAIR A COUPLE TIMES TODAY AND TURNED Q2 WHILE IN BED. PT ALSO BEING CHANGED PRN FOR INCONTINENCE. BEING TREATED PER EMAR FOR PNEUMONIA.
[2021-05-17 04:06] LABS: Hematocrit 31.4 % (33.0-51.0)
[2021-05-17 04:24] LABS: Albumin, Blood 2.2 g/dL (3.4-5.0); Anion Gap 7 mmol/L (6-16); Blood Urea Nitrogen 24 mg/dL (8-24); Bun/Creatinine Ratio 31.1 (12.0-20.0); CO2, Blood 21 mmol/L (21-32); Calcium, Blood 7.7 mg/dL (8.5-10.1); Chloride, Blood 115 mmol/L (98-108); Creatinine, Blood 0.77 mg/dL (0.40-1.00); Glomerular Filtration Rate >60 (60-); Glucose, Blood 64 mg/dL (70-99); Magnesium, Blood 1.4 mg/dL (1.6-2.4); Phosphorus, Blood 3.5 mg/dL (2.5-4.9); Potassium, Blood 3.7 mmol/L (3.5-5.5); Sodium, Blood 143 mmol/L (136-145)
--- NOTE | 2021-05-17 07:22 | NUR ---
PT IS A/OX1, TO SELF. STAFF NEED TO ANTICIPATE HER NEEDS. NO EVENTS OVER NIGHT. PT IS S/P LUE FX AND LEFT HIP FX, S/P PINNING. LT HIP INCISIONS INTACT W/VALENCIA. DIXIE D/T PT REMOVES DRSG'S. EXTENSIVE BRUISING TO LUE/LT FLANK/LT HIP. INC OF B/B, WEARS DISPOSABLE ADULT BRIEFS.
[2021-05-17 09:19] LABS: Hematocrit 33.8 % (33.0-51.0); Hemoglobin 10.8 g/dL (11.5-16.0); Mean Corpuscular HGB 29.3 pg (26.0-34.0); Mean Corpuscular Volume 92 fL (80-100); Mean Platelet Volume 10.1 fL (9.1-12.4); Platelet Count 485 K/mm3 (150-400); RDW Coefficient Variation 24.6 % (11.7-14.2); RDW Standard Deviation 79.3 fL (35.1-46.3); Red Blood Cell Count 3.68 M/mm3 (3.80-5.20); White Blood Cell Count 19.14 K/mm3 (4.00-11.30)
[2021-05-17 15:27] LABS: SARS-Cov-2 (COVID-19) PCR, MMC NEGATIVE (NEGATIVE)
--- NOTE | 2021-05-17 16:40 | NUR ---
O2 THERAPY PT'S OXYGEN SATURATION WAS RUNNING IN THE MID TO HIGH 80'S. PUT PT ON 2 L O2 VIA NC AND PT IS NOW AT 91% AND SITTING COMFORTABLY IN BED.
--- NOTE | 2021-05-17 18:05 | NUR ---
DISCHARGE [facility]. PT LEFT IN WHEELCHAIR WITH ALL HER BELONGINGS AND DISCHARGE PACKET VIA TRANSPORT. 2 L O2 NC IN PLACE. IV D/C'D WITH CATHETER IN TACT PRIOR TO DISCHARGE.
== END 2021-05-17 17:57 | DRG 480 ==
LOC: ER 00:34 → SURS 03:03
PROVIDERS: Emergency Medicine; Family Medicine; Internal Medicine; Internal Medicine Nephrology; Orthopaedic Surgery; Pharmacist; ADMIT Internal Medicine
PROC: 0QS736Z Reposition Left Upper Femur with Intramedullary Internal Fixation Device, Percutaneous Approach (ICD-10-PCS; principal; 2021-05-02 09:15)
PROC: 30233N1 Transfusion of Nonautologous Red Blood Cells into Peripheral Vein, Percutaneous Approach (ICD-10-PCS; 2021-05-04)
DX: S72.142A Displaced intertrochanteric fracture of left femur, initial encounter for closed fracture (principal); A41.9 Sepsis, unspecified organism; R65.20 Severe sepsis without septic shock; S42.212A Unspecified displaced fracture of surgical neck of left humerus, initial encounter for closed fracture; N17.9 Acute kidney failure, unspecified; E87.2 Acidosis; N39.0 Urinary tract infection, site not specified; D62 Acute posthemorrhagic anemia; E87.1 Hypo-osmolality and hyponatremia; F03.90 Unspecified dementia, unspecified severity, without behavioral disturbance, psychotic disturbance, mood disturbance, and anxiety; E03.9 Hypothyroidism, unspecified; G43.909 Migraine, unspecified, not intractable, without status migrainosus; I12.9 Hypertensive chronic kidney disease with stage 1 through stage 4 chronic kidney disease, or unspecified chronic kidney disease; E86.9 Volume depletion, unspecified; Z66 Do not resuscitate; F32.9 Major depressive disorder, single episode, unspecified; E87.5 Hyperkalemia; D63.1 Anemia in chronic kidney disease; E88.09 Other disorders of plasma-protein metabolism, not elsewhere classified; M81.0 Age-related osteoporosis without current pathological fracture; W01.0XXA Fall on same level from slipping, tripping and stumbling without subsequent striking against object, initial encounter; E87.6 Hypokalemia; R07.89 Other chest pain; E83.42 Hypomagnesemia; K21.9 Gastro-esophageal reflux disease without esophagitis; Z20.822 Contact with and (suspected) exposure to COVID-19; R31.9 Hematuria, unspecified; N18.30 Chronic kidney disease, stage 3 unspecified; J44.9 Chronic obstructive pulmonary disease, unspecified; E83.39 Other disorders of phosphorus metabolism; E86.0 Dehydration; Z88.5 Allergy status to narcotic agent; Z91.81 History of falling; Y92.003 Bedroom of unspecified non-institutional (private) residence as the place of occurrence of the external cause; Z90.49 Acquired absence of other specified parts of digestive tract; Z98.890 Other specified postprocedural states; Z87.891 Personal history of nicotine dependence; Z90.710 Acquired absence of both cervix and uterus; Z79.899 Other long term (current) drug therapy; Z79.51 Long term (current) use of inhaled steroids; Z79.01 Long term (current) use of anticoagulants
CPT/HCPCS: 36415; 36430; 70450; 71045; 71046; 71260; 73030; 73060; 73200; 73502; 74177; 76377; 76770; 80053; 80069; 80202; 81001; 82248; 82272; 82550; 82728; 83540; 83550; 83605; 83735; 84100; 84145; 84443; 84484; 84550; 85014; 85018; 85025; 85027; 85651; 86140; 86850; 86900; 86901; 86920; 86923; 87040; 87086; 87106; 93005; 93010; 93971; 94762; 96374; 96375; 96376; 97110; 97116; 97163; 97530; 99285-25; A9270; C1713; C1751; G0378; J0690; J0696; J0881; J1100; J1170; J1885; J1940; J2270; J2405; J2543; J2704; J3010; J3370; J3475; J3480; J7030; J7050; J7060; J7070; P9016; Q9967; U0004

== ENCOUNTER 2021-05-22 13:47 | Inpatient (IN) | payer OTHER ==
[~2021-05-22] VITALS: Ht 165.1 cm; Wt 45.9 kg
[~2021-05-22 13:47] MED LIST changes: +BUPROPION XL150 M1 PO; +PROP10 PO; +VISBIOME 112.51 EACH PO; -Vsl#3 Capsule1 EACH PO; -XARELTO1 EACH PO; +XARELTO15 MG PO
[2021-05-22 14:36] LABS: BASOPHILS ABSOLUTE AUTO 0.06 K/mm3 (0.00-0.23); BASOPHILS PERCENT AUTO 0 % (0-2); EOSINOPHILS PERCENT AUTO 0 % (0-6); Hematocrit 35.8 % (33.0-51.0); Hemoglobin 11.1 g/dL (11.5-16.0); IMMATURE GRAN ABSOLUTE AUTO 0.19 K/mm3 (0.00-0.10); IMMATURE GRAN PERCENT AUTO 1 % (0-1); LYMPHOCYTES ABSOLUTE AUTO 0.68 K/mm3 (0.84-5.20); LYMPHOCYTES PERCENT AUTO 4 % (21-46); MONOCYTES PERCENT AUTO 4 % (4-13); Mean Corpuscular HGB 29.4 pg (26.0-34.0); Mean Corpuscular Volume 95 fL (80-100); Mean Platelet Volume 9.7 fL (9.1-12.4); NEUTROPHILS ABSOLUTE AUTO 17.47 K/mm3 (1.96-9.15); NEUTROPHILS PERCENT AUTO 91 % (41-73); NRBC ABSOLUTE 0.02 K/mm3 (0.00-0.02); NRBC Auto 0.1 /100 WBC (0.0-0.2); Platelet Count 557 K/mm3 (150-400); RDW Standard Deviation 82.6 fL (35.1-46.3); Red Blood Cell Count 3.77 M/mm3 (3.80-5.20)
[2021-05-22 14:55] LABS: Alanine Aminotransfer (ALT/SGP 16 U/L (12-78); Albumin/Globulin Ratio 0.6 (0.8-1.8); Alk Phos 219 U/L (50-136); Anion Gap 7 mmol/L (6-16); Aspartate Aminotrans (AST/SGOT 26 U/L (12-37); Bilirubin, Total 0.7 mg/dL (0.1-1.0); Blood Urea Nitrogen 11 mg/dL (8-24); Bun/Creatinine Ratio 16.3 (12.0-20.0); CO2, Blood 20 mmol/L (21-32); Calcium, Blood 8.1 mg/dL (8.5-10.1); Chloride, Blood 115 mmol/L (98-108); Creatinine, Blood 0.67 mg/dL (0.40-1.00); Globulin, Blood 3.4 g/dL (2.2-4.0); Glomerular Filtration Rate >60 (60-); Glucose, Blood 144 mg/dL (70-99); Potassium, Blood 3.4 mmol/L (3.5-5.5); Sodium, Blood 142 mmol/L (136-145); Total Protein, Blood 5.4 g/dL (6.4-8.2); Troponin I <0.015 ng/mL (0.000-0.040)
[2021-05-22] MEDS ORDERED: MOME220I INH (17:17)
[2021-05-22] MEDS ORDERED: BACTRIM DS TAB1 EAC6 PO (17:18)
[2021-05-22 17:20] LABS: SARS-Cov-2 (COVID-19) PCR, MMC NEGATIVE (NEGATIVE)
[2021-05-22] MEDS ORDERED: DOCU100 PO (17:20)
[2021-05-22] MEDS ORDERED: BISA10S PR (17:21)
[2021-05-22] MEDS ORDERED: LIDO700A20 TOP (17:22)
[2021-05-22] MEDS ORDERED: MEMA10 PO (17:24)
[2021-05-22] MEDS ORDERED: SENN187 PO (17:27)
[2021-05-22 19:32] LABS: CHOL/HDL RATIO 1.8; Cholesterol 87 mg/dL (50-200); HDL Cholesterol 48 mg/dL (>39); LDL/HDL RATIO 0.4; Low Density Lipoprotein Chol 19 mg/dL (0-110); Triglycerides 99 mg/dL (30-160); Very Low Density Lipoprot Chol 19 mg/dL (6-32)
[2021-05-22 20:13] LABS: Adenovirus Not Detected (NOT DETECT); Bordetella pertussis Not Detected (NOT DETECT); Chlamydophila pneumoniae Not Detected (NOT DETECT); Coronavirus 229E Not Detected (NOT DETECT); Coronavirus HKU1 Not Detected (NOT DETECT); Coronavirus NL63 Not Detected (NOT DETECT); Coronavirus OC43 Not Detected (NOT DETECT); Human Metapneumovirus Not Detected (NOT DETECT); Human Rhinovirus/Enterovirus Not Detected (NOT DETECT); Influenza A/2009-H1 Not Detected (NOT DETECT); Influenza A/H1 Not Detected (NOT DETECT); Influenza A/H3 Not Detected (NOT DETECT); Influenza B Not Detected (NOT DETECT); Mycoplasma pneumoniae Not Detected (NOT DETECT); Parainfluenza Virus 1 Not Detected (NOT DETECT); Parainfluenza Virus 2 Not Detected (NOT DETECT); Parainfluenza Virus 3 Not Detected (NOT DETECT); Parainfluenza Virus 4 Not Detected (NOT DETECT); Respiratory Syncytial Virus Not Detected (NOT DETECT); SARS-Cov-2 (COVID-19), BioFire Not Detected (NOT DETECT)
[2021-05-22 23:55] LABS: Source, Urine Catheter
[2021-05-23 00:03] LABS: Appearance, Urine Clear (Clear); Bilirubin, Urine Neg (Neg); Blood, Urine 4+ (Neg); Color, Urine Yellow (P-Yellow); Glucose Qualitative, Urine Neg (Neg); Ketones, Urine Neg (Neg); Leukocyte Esterase, Urine Neg (Neg); Nitrite, Urine Neg (Neg); Protein, Urine Neg (Neg); Urobilinogen, Urine NORM (Normal); pH, Urine 6.5 (5.0-8.0)
[2021-05-23 00:07] LABS: Squamous Epithelial Cells Not Seen /hpf (Few); White Blood Cells, Urine 0-2 /hpf (0-5)
[2021-05-23 00:08] LABS: Bacteria Few /hpf
[2021-05-23 05:34] LABS: BASOPHILS ABSOLUTE AUTO 0.05 K/mm3 (0.00-0.23); BASOPHILS PERCENT AUTO 0 % (0-2); EOSINOPHILS PERCENT AUTO 0 % (0-6); Hematocrit 34.7 % (33.0-51.0); Hemoglobin 10.8 g/dL (11.5-16.0); IMMATURE GRAN ABSOLUTE AUTO 0.14 K/mm3 (0.00-0.10); IMMATURE GRAN PERCENT AUTO 1 % (0-1); LYMPHOCYTES ABSOLUTE AUTO 0.81 K/mm3 (0.84-5.20); LYMPHOCYTES PERCENT AUTO 4 % (21-46); MONOCYTES PERCENT AUTO 4 % (4-13); Mean Corpuscular HGB 29.3 pg (26.0-34.0); Mean Corpuscular HGB Conc 31.1 g/dL (31.5-36.5); Mean Corpuscular Volume 94 fL (80-100); Mean Platelet Volume 9.6 fL (9.1-12.4); NEUTROPHILS ABSOLUTE AUTO 16.92 K/mm3 (1.96-9.15); NEUTROPHILS PERCENT AUTO 90 % (41-73); Platelet Count 440 K/mm3 (150-400); RDW Coefficient Variation 23.7 % (11.7-14.2); Red Blood Cell Count 3.68 M/mm3 (3.80-5.20); White Blood Cell Count 18.72 K/mm3 (4.00-11.30)
[2021-05-23 06:01] LABS: Alanine Aminotransfer (ALT/SGP 13 U/L (12-78); Albumin, Blood 1.8 g/dL (3.4-5.0); Albumin/Globulin Ratio 0.6 (0.8-1.8); Alk Phos 202 U/L (50-136); Anion Gap 5 mmol/L (6-16); Aspartate Aminotrans (AST/SGOT 16 U/L (12-37); Bilirubin, Total 0.7 mg/dL (0.1-1.0); Blood Urea Nitrogen 10 mg/dL (8-24); Bun/Creatinine Ratio 15.5 (12.0-20.0); CO2, Blood 24 mmol/L (21-32); Calcium, Blood 7.7 mg/dL (8.5-10.1); Chloride, Blood 112 mmol/L (98-108); Creatinine, Blood 0.64 mg/dL (0.40-1.00); Globulin, Blood 3.1 g/dL (2.2-4.0); Glomerular Filtration Rate >60 (60-); Glucose, Blood 79 mg/dL (70-99); Potassium, Blood 3.3 mmol/L (3.5-5.5); Sodium, Blood 141 mmol/L (136-145); Total Protein, Blood 4.9 g/dL (6.4-8.2)
--- NOTE | 2021-05-23 06:39 | NUR ---
SHIFT SUMMARY PATIENT ALERT AND ORIENTED X3. PATIENT PAINFUL WHEN MOVED DUE TO INJURIES, NO COMPLAINTS OF SHORTNESS OF BREATH. PATIENT CURRENTLY ON 8 LITERS O2 VIA OXYMIZER SATING AT 84%. BED IN LOWEST POSITION WITH WHEELS LOCKED AND ALARM ON. CALL LIGHT WITHIN REACH. REPORT GIVEN TO ONCOMING RN.
--- NOTE | 2021-05-23 15:54 | NUR ---
SHIFT SUMMARY PATIENT IS ALERT AND ORIENTED X3 INTERMITTENTLY CONFUSED. PATIENT ON 7L ON OXYMIZER SATTING 92-94%. PATIENT REMOVED OXYGEN AND DESTATTED TO 60% ON ROOM AIR. SPOKE WITH CAREGIVER LUI AND SON WILL AND UPDATE GIVEN. THORACENTESIS ORDERED FOR PATIENT CANNOT BE COMPLATED UNTIL TOMORROW, PT GIVEN LOVENOX THIS AM ON HOLD FOR 24HRS. LDH ORDERED FOR 3HRS AFTER THORACENTESIS. PATIENT HAS A POOR APPETITE SON STATES "ITS NORMAL SHE'S A PICKY EATER." PATIENT IN STABLE CONDITION.
[2021-05-24 05:15] LABS: BASOPHILS ABSOLUTE AUTO 0.05 K/mm3 (0.00-0.23); BASOPHILS PERCENT AUTO 0 % (0-2); EOSINOPHILS PERCENT AUTO 0 % (0-6); Hematocrit 36.9 % (33.0-51.0); Hemoglobin 11.5 g/dL (11.5-16.0); IMMATURE GRAN ABSOLUTE AUTO 0.24 K/mm3 (0.00-0.10); IMMATURE GRAN PERCENT AUTO 1 % (0-1); LYMPHOCYTES PERCENT AUTO 4 % (21-46); MONOCYTES ABSOLUTE AUTO 0.76 K/mm3 (0.16-1.47); MONOCYTES PERCENT AUTO 3 % (4-13); Mean Corpuscular HGB 29.4 pg (26.0-34.0); Mean Corpuscular HGB Conc 31.2 g/dL (31.5-36.5); Mean Corpuscular Volume 94 fL (80-100); Mean Platelet Volume 9.7 fL (9.1-12.4); NEUTROPHILS ABSOLUTE AUTO 21.14 K/mm3 (1.96-9.15); NEUTROPHILS PERCENT AUTO 92 % (41-73); Platelet Count 529 K/mm3 (150-400); RDW Coefficient Variation 23.1 % (11.7-14.2); RDW Standard Deviation 79.4 fL (35.1-46.3); Red Blood Cell Count 3.91 M/mm3 (3.80-5.20); White Blood Cell Count 22.99 K/mm3 (4.00-11.30)
[2021-05-24 05:29] LABS: International Normalized Ratio 1.16; Prothrombin Time Results 12.4 Sec (9.7-11.5)
[2021-05-24 05:38] LABS: Alanine Aminotransfer (ALT/SGP 15 U/L (12-78); Albumin, Blood 1.9 g/dL (3.4-5.0); Albumin/Globulin Ratio 0.6 (0.8-1.8); Alk Phos 223 U/L (50-136); Anion Gap 5 mmol/L (6-16); Aspartate Aminotrans (AST/SGOT 22 U/L (12-37); Bilirubin, Total 0.7 mg/dL (0.1-1.0); Blood Urea Nitrogen 13 mg/dL (8-24); Bun/Creatinine Ratio 20.5 (12.0-20.0); CO2, Blood 24 mmol/L (21-32); Calcium, Blood 7.9 mg/dL (8.5-10.1); Chloride, Blood 111 mmol/L (98-108); Creatinine, Blood 0.63 mg/dL (0.40-1.00); Globulin, Blood 3.3 g/dL (2.2-4.0); Glomerular Filtration Rate >60 (60-); Glucose, Blood 94 mg/dL (70-99); Potassium, Blood 3.7 mmol/L (3.5-5.5); Sodium, Blood 140 mmol/L (136-145); Total Protein, Blood 5.2 g/dL (6.4-8.2)
--- NOTE | 2021-05-24 06:27 | NUR ---
SHIFT SUMMARY PATIENT ALERT AND ORIENTED X3 WITH INTERMITENT CONFUSION. NO COMPLAINTS OF PAIN OR SHORTNESS OF BREATH. NO ACUTE ISSUES NOTED. BED IN LOWEST POSITION WITH WHEELS LOCKED AND ALARM ON. CALL LIGHT WITHIN REACH. REPORT GIVEN TO ONCOMING RN.
--- NOTE | 2021-05-24 18:06 | NUR ---
SHIFT SUMMARY PT IS AO WITH INTERMITTENT CONFUSION. PT DENIES SOB, N/V. PT MEDICATED FOR PAIN X1. PT APPETITE IS GOOD. PT REMAINS ON BEDREST. PT WENT FOR THORACENTESIS BUT PROCEDURE CANCELLED DUE TO LOW VOLUME IN EACH LUNG. PT SATS GREATER THAN 90% ON 10 L VIA OXYMIZER. VSS. PT IS IN BED, CALL LIGHT IN REACH, LOW POSITION.
--- NOTE | 2021-05-25 05:29 | NUR ---
SHIFT SUMMARY PT ADMIITED FOR RESP. FAILURE. DNR WITH A HX OF DEMENTIA. PT CONFUSED AND TAKES OFF 02 AT TIMES. ON 10L OXYMIZER. NO DISTRESS NOTED THROUGHOUT SHIFT. BED IN LOWEST POSITION, BED ALARM ON. PT RESTING AT THIS TIME.
[2021-05-25 05:56] LABS: BASOPHILS ABSOLUTE AUTO 0.06 K/mm3 (0.00-0.23); BASOPHILS PERCENT AUTO 0 % (0-2); EOSINOPHILS PERCENT AUTO 0 % (0-6); Hematocrit 37.9 % (33.0-51.0); IMMATURE GRAN ABSOLUTE AUTO 0.19 K/mm3 (0.00-0.10); IMMATURE GRAN PERCENT AUTO 1 % (0-1); LYMPHOCYTES ABSOLUTE AUTO 0.82 K/mm3 (0.84-5.20); LYMPHOCYTES PERCENT AUTO 3 % (21-46); MONOCYTES ABSOLUTE AUTO 0.96 K/mm3 (0.16-1.47); MONOCYTES PERCENT AUTO 3 % (4-13); Mean Corpuscular HGB 29.8 pg (26.0-34.0); Mean Corpuscular HGB Conc 31.7 g/dL (31.5-36.5); Mean Corpuscular Volume 94 fL (80-100); Mean Platelet Volume 9.7 fL (9.1-12.4); NEUTROPHILS ABSOLUTE AUTO 26.19 K/mm3 (1.96-9.15); NEUTROPHILS PERCENT AUTO 93 % (41-73); Platelet Count 568 K/mm3 (150-400); RDW Coefficient Variation 22.6 % (11.7-14.2); RDW Standard Deviation 77.6 fL (35.1-46.3); Red Blood Cell Count 4.03 M/mm3 (3.80-5.20); White Blood Cell Count 28.22 K/mm3 (4.00-11.30)
[2021-05-25 06:23] LABS: Alanine Aminotransfer (ALT/SGP 15 U/L (12-78); Albumin/Globulin Ratio 0.6 (0.8-1.8); Alk Phos 227 U/L (50-136); Anion Gap 10 mmol/L (6-16); Aspartate Aminotrans (AST/SGOT 23 U/L (12-37); Bilirubin, Total 0.9 mg/dL (0.1-1.0); Blood Urea Nitrogen 16 mg/dL (8-24); Bun/Creatinine Ratio 21.4 (12.0-20.0); CO2, Blood 25 mmol/L (21-32); Calcium, Blood 8.1 mg/dL (8.5-10.1); Chloride, Blood 106 mmol/L (98-108); Creatinine, Blood 0.75 mg/dL (0.40-1.00); Globulin, Blood 3.3 g/dL (2.2-4.0); Glomerular Filtration Rate >60 (60-); Glucose, Blood 97 mg/dL (70-99); Potassium, Blood 3.4 mmol/L (3.5-5.5); Sodium, Blood 141 mmol/L (136-145); Total Protein, Blood 5.3 g/dL (6.4-8.2)
--- NOTE | 2021-05-25 17:27 | NUR ---
SHIFT SUMMARY PATIENT IS ALERT AND ORIENTED X2. PATIENT HAS TAKEN OXYGEN OFF NUMEROUS TIMES THIS SHIFT AND HAS HAD TO REORIENT PATIENT TO BEING IN THE HOSPITAL. PATIENT HAS A HX OF DEMENTIA. PATIENT HAS BEEN RESTING OFF AND ON DURING SHIFT. VALENCIA TAKEN OUT OF SURGICAL SITE PER DR ORDERS. PATIENT HAS BEEN ON 7 LITERS NASAL CANULA THROUGHOUT SHIFT. VITAL SIGNS REVIEWED.
[2021-05-25 20:07] LABS: M PNEUMONIAE IGG ABS <100 U/mL (0-99); M PNEUMONIAE IGM ABS <770 U/mL (0-769)
--- NOTE | 2021-05-26 04:10 | NUR ---
SHIFT SUMMARY DNR PT ADMITTED FOR RESP FAILURE. PT ON 10L OXYMIZER. CONFUSED. UP MOST OF THE MIGHT WITH CONFUSION. NO DISTRESS NOTED. NO SIGNIFICANT CHANGES DURING THIS SHIFT. BED AT LOWEST POSITION. BED ALARM ON. PT RESTING AT THIS TIME.
[2021-05-26 05:57] LABS: Anion Gap 10 mmol/L (6-16); Blood Urea Nitrogen 19 mg/dL (8-24); Bun/Creatinine Ratio 24.4 (12.0-20.0); CO2, Blood 24 mmol/L (21-32); Calcium, Blood 7.7 mg/dL (8.5-10.1); Chloride, Blood 108 mmol/L (98-108); Creatinine, Blood 0.78 mg/dL (0.40-1.00); Glomerular Filtration Rate >60 (60-); Glucose, Blood 85 mg/dL (70-99); Potassium, Blood 2.9 mmol/L (3.5-5.5); Sodium, Blood 142 mmol/L (136-145)
--- NOTE | 2021-05-26 17:24 | NUR ---
SUMMARY PT RESTING QUIETLY IN BED, WAKES EASILY, HAS BEEN CONFUSED OFF AND ON FOR MOST OF THE DAY, TAKES HER PILLS IN PUDDING, PT WITH POOR APPETITE, OCC TAKES OFF HER OXYGEN, MED PER EMAR FOR PAIN, VSS, WILL CONT TO MONITOR
--- NOTE | 2021-05-26 19:05 | NUR ---
ASSUMED CARE RECEIVED REPORT FROM JOSE WILLIAMSON. PT LYING IN BED, REMOVING NASAL CANNULA. COMBATIVE, SWINGING FISTS AT DAY RN, STATING "LEAVE ME ALONE." WILL RE-APPROACH PT AT A LATER TIME. CALL LIGHT, POSSESSIONS IN REACH, BED IN LOW AND LOCKED POSITION WITH ALARMS ON. [facility].
--- NOTE | 2021-05-26 23:55 | NUR ---
PT REFUSED ALL 2100 MEDICATIONS THIS EVENING, REFUSED TO FOLLOW CUES TO OPEN MOUTH FOR BITES OF PUDDING. STATED SHE WANTED STAFF TO LEAVE HER ALONE.
--- NOTE | 2021-05-27 04:42 | NUR ---
MEDICAL TECHNICIAN SUMMARY PT ASLEEP, APPEARS COMFORTABLE. PT UNCOOPERATIVE WITH CARES, REFUSED MEDS AND 1900 VS. AM VS WNL, O2 SATS STABLE ON 7L/OXYMIZER. PT CONTINUES TO REMOVE O2 AT TIMES, FIGHTS STAFF WHEN THEY ATTEMPT TO REPLACE IT. NO OTHER ACUTE CONCERNS TO REPORT OVERNIGHT. NO ACUTE NEEDS ASSESSED AT THIS TIME. CALL LIGHT, POSSESSIONS IN REACH, BED IN LOW AND LOCKED POSITION WITH ALARMS ON. WILL CONTINUE TO PROVIDE CARE UNTIL REPORT GIVEN TO ONCOMING RN.
[2021-05-27 05:39] LABS: Hematocrit 36.6 % (33.0-51.0); Hemoglobin 11.6 g/dL (11.5-16.0); Mean Corpuscular HGB 30.4 pg (26.0-34.0); Mean Corpuscular HGB Conc 31.7 g/dL (31.5-36.5); Mean Corpuscular Volume 96 fL (80-100); Mean Platelet Volume 9.9 fL (9.1-12.4); Platelet Count 542 K/mm3 (150-400); RDW Coefficient Variation 23.5 % (11.7-14.2); RDW Standard Deviation 82.3 fL (35.1-46.3); Red Blood Cell Count 3.81 M/mm3 (3.80-5.20); White Blood Cell Count 23.51 K/mm3 (4.00-11.30)
[2021-05-27 06:08] LABS: Anion Gap 8 mmol/L (6-16); Blood Urea Nitrogen 16 mg/dL (8-24); Bun/Creatinine Ratio 25.6 (12.0-20.0); CO2, Blood 25 mmol/L (21-32); Calcium, Blood 8.4 mg/dL (8.5-10.1); Chloride, Blood 114 mmol/L (98-108); Creatinine, Blood 0.63 mg/dL (0.40-1.00); Glomerular Filtration Rate >60 (60-); Glucose, Blood 75 mg/dL (70-99); Potassium, Blood 3.7 mmol/L (3.5-5.5); Sodium, Blood 147 mmol/L (136-145)
--- NOTE | 2021-05-27 18:37 | NUR ---
PT IS ALERT TO SELF.PALLLIATIVE CARE CONSULTED,PT ON 4L OXYMIZER SATS IN 90'S PT REFUSED AFTERNOON MEDS.PT IS IN BED SLEEPING ,BED ALARM ON, CALL LIGHT IN REACH, WILL CONTINUE TO MONITOR.
--- NOTE | 2021-05-27 19:10 | NUR ---
ASSUMED CARE RECEIVED REPORT FROM JOSE MORAN. PT RESTING, IN NAD. NO ACUTE NEEDS ASSESSED AT THIS TIME. CALL LIGHT, POSSESSIONS IN REACH, BED IN LOW AND LOCKED POSITION WITH ALARMS ON. TM.
--- NOTE | 2021-05-28 05:47 | NUR ---
PROPERTY VALUER SUMMARY PT ASLEEP, IN NAD. VS REVIEWED, O2 SATS STABLE ON 7L/NC. PT APPEARS TO BE COMFORTABLE. TOOK PO MEDS CRUSHED IN PUDDING WITH MODERATE DIFFICULTY. COOPERATIVE WITH STAFF, APPEARED MORE LUCID THIS SHIFT. APPEARED TO SLEEP WELL OVERNIGHT. NO OTHER ACUTE CONCERNS TO REPORT OVERNIGHT. NO ACUTE NEEDS ASSESSED AT THIS TIME. CALL LIGHT, POSSESSIONS IN REACH, BED IN LOW AND LOCKED POSITION WITH ALARMS ON. WILL CONTINUE TO PROVIDE CARE NEEDED UNTIL REPORT GIVEN TO ONCOMING RN.
--- NOTE | 2021-05-28 18:43 | NUR ---
PT IS ALERT TO SELF,PT IS NOW CONFORT MEASURE,PT ASSESSMENT REMAINS UNCHANGED,PT IS DEMENTED,PT IN BED,BED IN LOW POSITION,CALL LIGHT IN REACH WILL CONTINUE TO MONITOR.
[2021-05-29] MEDS ORDERED: POTA10T PO (00:36)
[2021-05-29] MEDS ORDERED: LISI20 PO (00:37)
[2021-05-29] MEDS ORDERED: CHOLESTYRAMI239.4 G5 PO (00:38)
[2021-05-29] MEDS ORDERED: Percocet 5-3251 EACH PO (00:43)
[2021-05-29] MEDS ORDERED: MAGNESIUM250 MG PO (00:45)
--- NOTE | 2021-05-29 05:01 | NUR ---
END OF SHIFT SUMMARY PATIEINT REMAINED CALM OVER THE NIGHT BUT HAD SOME PAINFUL EPISODES AND SHE WAS GIVEN HER PAIN MED PER EMAR. SHE WAS KEPT COMFORTABLE POSSIBLE. WILL CONTINUE TO MONITOR HER.
--- NOTE | 2021-05-29 12:29 | NUR ---
Comfort care visit earlier this am. Pt had just been repositioned and appeared very comfortable. She is cachectic and extremely frail appearing. She did not wake to voice or touch. She had not been medicated for pain since yesterday ambar/night. She is very minimally restless and pulling at O2 tubing but gives up effort as spontaneously as it is started. Called son/CG with an update and invited him in to see his mom. Jose and brothers plan to come in. Screeners notified. Second visit and meeting with sonJose. Answered Jose's questions. Pt appears more restless and showing indicators of pain. Her right hand is swollen currently. RN had already loosened coban protecting pt's periph IV. Pt scowling, frowning and moving head. She did not wake for son when he arrived.He gave me some hx of pt's recent health events. RN medicated pt for pain. Comfort care orders reviewed and PO medications d/c'd due to pt's inability to wake and swallow safely. Alt route rx added per comfort care order set. Son at bedside. He is expecting his two brothers later today. I thanked him for coming and spending time at the bedside. Reviewed orders with RN also.
--- NOTE | 2021-05-29 13:35 | NUR ---
Third comfort care visit when two additional sons and gdau arrived. Gdau appropriately tearful. Sons' questions answered. Support and time for expressing concerns and questions given. Pt appears much more comfortable at this time than on my previous visit. Comfort care cart offered and declined. Family will let us know if they change their mind. Visitor policy explained. Son hopes to get pt's sister in to visit tomorrow. Pt has four visitors in already for today. RN updated. earring maker updated.
--- NOTE | 2021-05-29 13:36 | NUR ---
Introduction: PT refered by nursing staff. Assessment: PT presented lying in bed, labored breathing and incoherent. PT immediate family was present. I offered the support of the Spiritual Care Team. Intervention: Offered support of Spiritual Care Team. Outcome: Family said they would call if needed. Follow-Up: As needed or requested.
--- NOTE | 2021-05-29 17:40 | NUR ---
PT IS CONFORT MEASURE,PT ASSESSMENT REMAIN UNCHANGED AT THI TIME. FAMILY AT BED SIDE,PT IN BED,BED IN LOW POSITION,WILL CONTINUE TO MONITOR.
--- NOTE | 2021-05-30 05:41 | NUR ---
SHIFT SUMMARY PT MEDICATED FOR PAIN WITH EFFECT THIS SHIFT. PT DOES OPEN EYES TO SOUND, AND MOVES HANDS OCCASIONALLY BUT IS MOSTLY NON RESPONSIVE. SLEEPS MOST OF THE NIGHT. PT FAMILY AT BEDSIDE AT THE BEGINNING OF SHIFT, AND LEFT AROUND 2100. PT STILL IS HAVING LARGE INCONTINENT VOIDS. PT ON 6L O2 FOR COMFORT, COMFORT ASSESSED T/O SHIFT. BED IN LOWEST POSITION, CALL LIGHT WITHIN REACH.
--- NOTE | 2021-05-30 09:10 | NUR ---
Comfort Care visit and case conference with pt's RN done. Pt appears much more comfortable and peaceful this am. No restlessness or nonverbal indicators of pain, anxiety or distress noted. RN states son, Will, expected in to visit today. No family at bedside currently.
--- NOTE | 2021-05-30 11:50 | NUR ---
Son, Will, notified of pt's demise. He will notify the rest of the family. They would like to come in to visit before we call [facility]. filtering machine tender helper notified of above.
--- NOTE | 2021-05-30 13:40 | NUR ---
Son, Vitor, called to say that family would not be coming in afterall and that they wanted us to go ahead and call [facility]. This was relayed to bag machine helper on Medical floor.
--- NOTE | 2021-05-30 15:37 | NUR ---
PT AT 1140 AM.
== END 2021-05-30 11:40 | DRG 193 ==
LOC: ER 13:47 → ERHOLD 13:48 → MEDS 22:32
PROVIDERS: Emergency Medicine; Internal Medicine; ADMIT Hospitalist
DX: J18.9 Pneumonia, unspecified organism (principal); J96.01 Acute respiratory failure with hypoxia; E43 Unspecified severe protein-calorie malnutrition; J44.0 Chronic obstructive pulmonary disease with (acute) lower respiratory infection; Z68.1 Body mass index [BMI] 19.9 or less, adult; M81.0 Age-related osteoporosis without current pathological fracture; F03.90 Unspecified dementia, unspecified severity, without behavioral disturbance, psychotic disturbance, mood disturbance, and anxiety; E03.9 Hypothyroidism, unspecified; Z51.5 Encounter for palliative care; Z66 Do not resuscitate; G43.909 Migraine, unspecified, not intractable, without status migrainosus; Z20.822 Contact with and (suspected) exposure to COVID-19; R30.0 Dysuria; K59.09 Other constipation; R54 Age-related physical debility; E87.6 Hypokalemia; I48.0 Paroxysmal atrial fibrillation; I10 Essential (primary) hypertension; K21.9 Gastro-esophageal reflux disease without esophagitis; Y95 Nosocomial condition; Z88.5 Allergy status to narcotic agent; Z88.8 Allergy status to other drugs, medicaments and biological substances; Z90.710 Acquired absence of both cervix and uterus; Z98.890 Other specified postprocedural states; Z90.49 Acquired absence of other specified parts of digestive tract; Z87.891 Personal history of nicotine dependence; Z79.899 Other long term (current) drug therapy; Z86.73 Personal history of transient ischemic attack (TIA), and cerebral infarction without residual deficits
CPT/HCPCS: 0202U; 36415; 71045; 71260; 73200; 73700; 76377; 76604; 80048; 80053; 80061; 81001; 83880; 84145; 84443; 84484; 85025; 85027; 85379; 85610; 85730; 86738; 87040; 87449; 93306; 93971; 94640; 94664; 94760; 94762; 96365-59; 96372; 96375-59; 96376; 99285-25; A9270; G0378; J0696; J1650; J1940; J2270; J2543; J3370; J3480; J7050; Q9967; U0004